=== PATIENT | female | born 1975 | race Caucasian/White ===

== ENCOUNTER → 2017-05-25 16:15 | Outpatient (CLI) | payer BC, SELFPAY ==
--- NOTE | 2017-05-25 16:17 | MRI_ITS ---
STUDY: MRI LUMBAR SPINE WITHOUT CONTRAST REASON FOR EXAM: Female, 41 years old. Radiculopathy right lower leg TECHNIQUE: Standardized fat and water weighted pulse sequences were obtained in the sagittal and axial planes. COMPARISON: None FINDINGS: T12-L1: Normal endplates. Normal disc height, hydration and morphology. Normal bilateral facet joints. Normal central canal and bilateral lateral recesses. Normal bilateral intervertebral neural foramina. Normal lumbar lordosis. There is no substantial scoliosis. Normal conus medullaris that terminates at T12-L1 L1-2: Normal endplates. Normal disc height, hydration and morphology. Normal bilateral facet joints. Normal central canal and bilateral lateral recesses. Normal bilateral intervertebral neural foramina. L2-3: Normal endplates. Normal disc height, hydration and morphology. Normal bilateral facet joints. Normal central canal and bilateral lateral recesses. Normal bilateral intervertebral neural foramina. L3-4: Normal endplates. Normal disc height, hydration and morphology. Normal bilateral facet joints. Normal central canal and bilateral lateral recesses. Normal bilateral intervertebral neural foramina. L4-5: Normal endplates. Normal disc height, hydration and minimal annular bulge. Normal bilateral facet joints. Normal central canal and bilateral lateral recesses. Normal bilateral intervertebral neural foramina. L5-S1: Normal endplates. Normal disc height, hydration and minimal annular bulge. Bilateral facet arthropathy.. Normal central canal and bilateral lateral recesses. Normal bilateral intervertebral neural foramina. Normal visualized sacral ala. Normal visualized paraspinous soft tissue structures. MRI/Spine Lumbar (Routine) IMPRESSION: Minimal bulging of the annuli at L4-5 and L5-S1. No disc protrusion or significant spinal stenosis Electronically Signed: Favio Pruitt MD at 21:31 EST , Service support ,
== END ==
PROVIDERS: Family Provider Family Medicine; PCP Family Medicine; Visit Provider Family Medicine
DX: M54.17 Radiculopathy, lumbosacral region (principal)
CPT/HCPCS: 72148

== ENCOUNTER 2017-06-02 09:22 | Outpatient (RCR) | payer BC, SELFPAY ==
--- NOTE | 2017-06-02 11:36 | HP.PTEVAL_ITS ---
Patient's Visit Information JACINDA SINGH is a 42 year old F referred to Physical Therapy by Bette Reaves DO DR.LMALYS with a diagnosis of LUMBAR RADICULOPATHY. Date of Evaluation: 06/02/17 Physical Therapist: Nikolai Leija, PT, - Visit Plan Frequency: 2x /Week Duration: 4 Weeks Plan: EVITA EX'S,DLS,POSTURAL EX'S,MODALITIES - Subjective Subjective: This 42 y/o female presents to physical therapy with lumbar radiculopathy right side. Patient has had pain intermmtant pain right leg worse past 2 months. Patient fell September 26 made symptoms worse.Pain right L-S region radiates lateral thigh to foot. Patient has parathesia/tingling right foot. Patient has h/o fibromyalgia. Patient has PT in past to include Aquatic PT. Patient described as ache stabbing.Patient has heart montor past 30 days, patient has had stress test and EKG with testing inclusive. Symptoms worse with sitting ,bending,lifting, standing. Symptoms better wth walking. Symptoms affects quality of life and job demands and housework tasks.Pain affects sleeping. Patient ambulates with leg extended antalgic. VOCATION: [employer]. SOCAIL: [place] ,11 childern - Pain Right Lower Extremity Pain Intensity (Out of 10): 7 Pain Intensity Range: 10 Right Back Pain Intensity (Out of 10): 7 Pain Intensity Range: 10 - Objective POSTURE: mild foward posture. GAIT: mild foward posture antalgic gait right leg extended decrease stance time. NEURO: c/o parathesia/tingling right leg , light touch ,reflexes L3-4,L4-5,L5-S1 1/3. MMT: quads/hams 4-/5 R, L 4/5, hip 3 +/5 -R ,hip L 4-/5,ankle 4/5. LUMBAR ROM : flexion mod loss,extension mod loss, side glides mod loss. FLEXABILTY: hams mod tight. SYMMTRIES : align. PALPATION: tender L-S region - Special Tests L/S Slump test left side: Negative L/S Slump test right side: Positive L/S Left Straight Leg Raise: Negative L/S Right Straight Leg Raise: Positive Lumbar Standing: Flexion - Mechanical Response: No effect Lumbar Standing: Flexion - Symptoms During Testing: Increases Lumbar Standing: Flexion - Symptoms After Testing: Worse Lumbar Standing: Extension - Mechanical Response: No effect Lumbar Standing: Extension - Symptoms During Testing: Increases Lumbar Standing: Extension - Symptoms After Testing: No worse Comments:: LUMBAR Lumbar Lying: Flexion - Mechanical Response: No effect Lumbar Lying: Flexion - Symptoms During Testing: Increases Lumbar Lying: Flexion - Symptoms After Testing: No worse Lumbar Lying: Extension - Mechanical Response: Increases motion Lumbar Lying: Extension - Symptoms During Testing: Decreases Lumbar Lying: Extension - Symptoms After Testing: Better - Goals Goal 1:: Patient to be Independant with HEP Goal Time Frame: 4-6 Weeks Goal 2:: Independant with posture/body mechanics for ADL'S Goal Time Frame: 4-6 Weeks Goal 3:: Patient to decrease lumbar pain and radicular symptoms right by 50% or greater to improve function with walking and standing. Goal Time Frame: 4-6 Weeks Goal 4:: Patient to improve lumbar ROM to min loss for function of recovery Goal Time Frame: 4-6 Weeks Goal 5:: Patient to increase strength of right leg to 4/5 to improve function and gait Goal Time Frame: 4-6 Weeks - Rehabilitation Potential Physical Therapy Diagnosis: This patient has lumbar radiculopathy with pain right leg,poor lumbar ROM,decrease strength ,function ,ADL'S worse with flexion ,better with extension and posture correction. and had mechanical response with increase extension Rehabilitation Potential: Good - Anticipated Interventions Patient/Client Instruction: Educate patient on: Condition, Plan of Care For the Purpose of:: To decrease pain, To increase ROM, To improve muscle performance and motor function, To improve ability to perform ADL's, To improve performance and independence with ADL's, To improve ability of physical actions for home/community/work/leisure, To improve gait and locomotor functions, To improve health of tissue, To decrease soft tissue restriction, To increase flexibility/ROM, To prevent re-injury Therapeutic Exercise to Include: Strength training, Body mechanics, Postural training, Flexibilty training, Dynamic Lumbar Stabilization, Evita Exercises For the Purpose of:: To decrease pain, To increase ROM, To improve muscle performance and motor function, To improve ability to perform ADL's, To increase tolerance to activity/condition/position, To improve ability of physical actions for home/community/work/leisure, To improve gait and locomotor functions, To improve health of tissue, To decrease soft tissue restriction, To increase flexibility/ROM, To improve ability to perform tasks related to life management TENS: Yes IF ES: Yes Cryotherapy (ice pack, ice massage): Yes Thermo therapy (hot pack): Yes Ultrasound (thermal/non thermal): Yes For the Purpose of:: To decrease pain, To increase ROM, To improve nutrient delivery to tissue, To increase oxygenation perfusion, To improve muscle performance and motor function, To increase tolerance to activity/condition/ position, To improve ability of physical actions for home/community/work/leisure , To improve health of tissue, To decrease soft tissue restriction, To prevent re-injury, To improve ability to perform tasks related to life management Thank you for the opportunity to evaluate your patient. For Medicare and Medicare HMO plans, please review the plan of care and approve it. It will need to be FAXED BACK to us at [phone] for Medicare purposes. Please let me know if there are questions or concerns regarding this plan of care. Physician Signature: Date:
--- NOTE | 2017-07-15 10:33 | HP.PTDCNRP_ITS ---
HP - Discharge Summary (1) - Patient Information JACINDA SINGH was seen in my office for initial evaluation on 06/02/17. The following Plan of Care was established for this patient: Initial Frequency: 2x /Week Initial Duration: 4 Weeks - Anticipated Interventions Patient/Client Instruction: Educate patient on: Condition, Plan of Care For the Purpose of:: To decrease pain, To increase ROM, To improve muscle performance and motor function, To improve ability to perform ADL's, To improve performance and independence with ADL's, To improve ability of physical actions for home/community/work/leisure, To improve gait and locomotor functions, To improve health of tissue, To decrease soft tissue restriction, To increase flexibility/ROM, To prevent re-injury Therapeutic Exercise to Include: Strength training, Body mechanics, Postural training, Flexibilty training, Dynamic Lumbar Stabilization, Rosalio Exercises For the Purpose of:: To decrease pain, To increase ROM, To improve muscle performance and motor function, To improve ability to perform ADL's, To increase tolerance to activity/condition/position, To improve ability of physical actions for home/community/work/leisure, To improve gait and locomotor functions, To improve health of tissue, To decrease soft tissue restriction, To increase flexibility/ROM, To improve ability to perform tasks related to life management TENS: Yes IF ES: Yes Cryotherapy (ice pack, ice massage): Yes Thermo therapy (hot pack): Yes Ultrasound (thermal/non thermal): Yes For the Purpose of:: To decrease pain, To increase ROM, To improve nutrient delivery to tissue, To increase oxygenation perfusion, To improve muscle performance and motor function, To increase tolerance to activity/condition/ position, To improve ability of physical actions for home/community/work/leisure , To improve health of tissue, To decrease soft tissue restriction, To prevent re-injury, To improve ability to perform tasks related to life management This patient was last seen in our office 06/02/17. Pertinent comments regarding their Physical therapy will appear below: This patient seen for PT for lumbar radiculopathy for PT eval At this point I will be discontinuing this patient from physical therapy. I would be happy to see this patient again in the future if found appropriate by the physician. Thank you! Nikolai Leija, PT,
== END 2017-06-02 19:00 | disposition home or self-care (01) ==
LOC: PT 09:22
PROVIDERS: Family Provider Family Medicine; PCP Family Medicine; Visit Provider Family Medicine
DX: M54.17 Radiculopathy, lumbosacral region (principal)
CPT/HCPCS: 97014; 97162; G0283

== ENCOUNTER → 2017-07-23 14:12 | Outpatient (CLI) | payer BC, SELFPAY ==
[2017-07-23 16:03] LABS: T4 Free Direct 1.19 ng/dL (0.76-1.46); Thyroid Stim Hormone (TSH) 0.28 uIU/mL (0.358-3.74)
[2017-07-24 10:46] LABS: T3 Total - Triiodothyronine 0.89 ng/mL (0.6-1.81)
== END ==
PROVIDERS: Family Provider Family Medicine; PCP Family Medicine; Visit Provider Family Medicine
DX: E03.9 Hypothyroidism, unspecified (principal)
CPT/HCPCS: 36415; 84439; 84443; 84480

== ENCOUNTER → 2017-10-19 11:56 | Outpatient (CLI) | payer BC, SELFPAY ==
[2017-10-19 15:18] LABS: AST(SGOT) 19 U/L (15-37); Alanine Aminotransfer ALT/SGPT 26 U/L (13-56); Albumin, Serum 3.7 g/dL (3.2-5.0); Alkaline Phosphatase 67 U/L (45-117); Anion Gap 8 (5-15); BUN 9 mg/dL (7-18); BUN/Creat Ratio 14.2 RATIO (10-20); Calcium,Total 8.7 mg/dL (8.5-10.1); Chloride 106 mmol/L (98-107); Creatinine, Serum 0.64 mg/dL (0.55-1.02); EST Glomerular Filtration Rate 109 mL/min (>60); Est Glom Filt Rate - Afr Amer 132 mL/min (>60); Globulin 3.6 g/dL (2.2-4.2); Glucose 99 mg/dL (74-106); Lipase 99 U/L (73-393); Potassium 3.7 mmol/L (3.5-5.1); Protein, Total 7.3 g/dL (6.4-8.2); Sodium Level 141 mmol/L (136-145); Thyroid Stim Hormone (TSH) 0.05 uIU/mL (0.358-3.74)
[2017-10-19 15:27] LABS: T3 Total - Triiodothyronine 1.14 ng/mL (0.6-1.81)
== END ==
LOC: BFHLAB 11:56
PROVIDERS: Visit Provider Family Medicine
DX: R19.7 Diarrhea, unspecified (principal); R53.83 Other fatigue; E03.9 Hypothyroidism, unspecified; R10.9 Unspecified abdominal pain
CPT/HCPCS: 36415; 80053; 83690; 84439; 84443; 84480

== ENCOUNTER → 2017-11-03 07:32 | Outpatient (CLI) | payer BC, SELFPAY ==
--- NOTE | 2017-11-03 07:37 | CT_ITS ---
STUDY: CT ABDOMEN AND PELVIS WITH AND WITHOUT CONTRAST REASON FOR EXAM: Female, 42 years old. Diffuse abdominal pain. Fever and diarrhea. RADIATION DOSAGE (If Supplied By Facility): CTDIvol = ( 22.73 ) mGy, DLP = ( 2030.63 ) mGycm TECHNIQUE: Transaxial images were obtained from the dome of the diaphragm to the symphysis pubis without oral contrast. 100CC ml of Isovue 300 contrast was administered. Sagittal and coronal images were reconstructed. Individualized dose optimization techniques were used for this CT. COMPARISON: Comparison is made with prior study dated November 17, 2015. FINDINGS: The visualized lung bases are unremarkable. The visualized portions of the heart are within normal limits. There is decreased attenuation of the liver consistent with steatosis. Stable appearance of the right lobe of the liver in keeping with Evelin's lobe. There are surgical clips in the gallbladder fossa consistent with a prior cholecystectomy. Normal spleen. Normal pancreas. Normal bilateral adrenal glands. Normal right kidney. Normal left kidney. There is a small hiatal hernia. Stable postoperative changes in the proximal stomach. Normal small intestine. Normal colon. The appendix is visualized and appears normal. Normal abdominal aorta. Normal inferior vena cava. Normal retroperitoneum. Normal urinary bladder. Follicles are seen in the left ovary. Prior hysterectomy. Normal abdominal wall. Normal osseous structures. CT/CT Abd/Pelvis W/WO Contrast IMPRESSION: Fatty infiltration of the liver. Electronically Signed: Heladio Goddard MD at 10:00 EDT Tel [phone], Service support ,
== END ==
LOC: CT 07:33
PROVIDERS: Family Provider Family Medicine; PCP Family Medicine; Visit Provider Family Medicine
DX: R10.13 Epigastric pain (principal); R10.32 Left lower quadrant pain; R10.11 Right upper quadrant pain; R14.0 Abdominal distension (gaseous); K52.9 Noninfective gastroenteritis and colitis, unspecified; R10.2 Pelvic and perineal pain
CPT/HCPCS: 74178; Q9967

== ENCOUNTER 2017-11-06 20:07 | Emergency (ER) | payer BC, SELFPAY ==
[2017-11-06 20:09] VITALS: BP 144/87; PULSE 87; RESP 18; TEMP 36.7; O2SAT 97; BMI 34.9
--- NOTE | 2017-11-06 21:06 | EKG12_ITS ---
Test Reason : SOB Blood Pressure : / mmHG Vent. Rate : 072 BPM Atrial Rate : 072 BPM P-R Int : 148 ms QRS Dur : 074 ms QT Int : 404 ms P-R-T Axes : 048 024 009 degrees QTc Int : 442 ms Normal sinus rhythm Normal ECG Confirmed by ARUN WILSON, MONI ([id number]), image editor LEANDER SHARMA ([id number]) on 11/10/2017 1:46:50 PM Referred By: Bette Reaves Confirmed By:MONI DIAS MD
--- NOTE | 2017-11-06 21:06 | CT_ITS ---
STUDY: CT BRAIN WITHOUT CONTRAST REASON FOR EXAM: Female, 42 years old. Weakness RADIATION DOSAGE (If Supplied By Facility): CTDIvol = ( 44.99 ) mGy, DLP = ( 846.73 ) mGycm TECHNIQUE: Transaxial CT imaging of the brain was performed without administration of intravenous contrast material. Individualized dose optimization techniques were used for this CT. COMPARISON: None. FINDINGS: Normal soft tissue structures. Normal calvarium. Normal size ventricles and extra-axial spaces for the patient's age. Normal white matter tracts of the cerebral hemispheres. Prominent perivascular space or old lacunar infarct of the right basal ganglia. Normal thalami. Normal brainstem. Normal cerebellum. There is no intracranial hemorrhage. There are no findings of an acute ischemic infarction. Normal visualized paranasal sinuses. CT/Brain/Head without Contrast IMPRESSION: Normal unenhanced CT scan of the brain. Electronically Signed: Alfonzo Esqueda DO at 21:52 EDT Tel [phone], Service support ,
--- NOTE | 2017-11-06 21:09 | RAD_ITS ---
STUDY: X-RAY CHEST REASON FOR EXAM: Female, 42 years old. Right arm and leg cramps TECHNIQUE: Single AP portable view of the chest. COMPARISON: 05/10/2017 FINDINGS: The lungs are clear and expanded. There is no demonstrated pleural abnormality. Normal size heart. Normal mediastinum and oleksandr. Normal visualized pulmonary arteries. Normal visualized aortic arch and descending thoracic aorta. Normal visualized thoracic spine. Normal visualized ribs, clavicles, and shoulders. There is no demonstrated abnormality of the visualized soft tissue structures of the upper abdomen. RAD/Chest 1 View (Portable) IMPRESSION: Normal x-ray examination of the chest. Electronically Signed: Connor Thayer DO at 21:27 EDT Tel , Service support ,
[2017-11-06 21:37] LABS: Absolute Lymphocyte Count 3.24 X10^3/ul (0.83-4.51); Absolute Neutrophil Count 4.4 X10^3/uL (2.0-7.7); Basophil# 0.05 X10^3/uL; Basophil% 0.6 % (0-1); Eosinophil# 0.07 X10^3/uL; Eosinophils% 0.8 % (0-5); Hematocrit 39.6 % (37-47); Hemoglobin 13.1 g/dl (12.0-15.0); Lymphocyte # 3.24 X10^3/ul (4.0); Lymphocyte % 37.5 % (19-41); Mean Corp Hgb Conc 33.1 g/gl (32-36); Mean Corpuscular Hgb 28.7 pg (27.0-32.0); Mean Corpuscular Volume 86.8 fL (81-99); Mean Platelet Vol. 9.8 fl (6.2-12.0); Monocyte# 0.91 X10^3/uL; Monocyte% 10.5 % (0-10); Neutrophil # 4.36 X10^3/uL (2.7-7.7); Neutrophil % 50.4 % (47-70); Platelet Count 272 K/mm3 (150-450); RBC Distribution Width SD 38.2 fl (35.1-43.9); Red Blood Count 4.56 M/mm3 (4.2-5.4); White Blood Count 8.7 K/mm3 (4.4-11.0)
[2017-11-06 21:37] LABS: Bacteria 0 SEEN /hpf (None Seen); Mucous, Urine 0 SEEN /hpf (<or=2+); Red Blood Cells-Urine 0 SEEN /hpf (0-5); White Blood Cells 0 SEEN /hpf (0-5)
[2017-11-06 21:38] LABS: POSITIVE COUNT NO; POSITIVE DIFFERENTIAL NO; POSITIVE MORPHOLOGY NO
[2017-11-06] MEDS: 0.9% Normal Saline 1,000 ML 1000 ML IV (21:46)
[2017-11-06 21:54] LABS: Amphetamine Urine VISTA NEGATIVE (<1000 ng/mL); Barbiturate Urine VISTA NEGATIVE (< 200 ng/mL); Benzodiazepine Urine VISTA NEGATIVE (< 200 ng/mL); Cocaine Urine VISTA NEGATIVE (< 300 ng/mL); Ecstacy Urine VISTA NEGATIVE (< 500 ng/mL); Methadone Urine VISTA NEGATIVE (< 300 ng/mL); PCP Urine VISTA NEGATIVE (< 25 ng/mL); THC Urine VISTA NEGATIVE (< 50 ng/mL); Vista UDS pH Range 6
[2017-11-06 21:58] LABS: Color, Urine Yellow (Yellow); Glucose, Dipstick Normal (Normal); Ketone-Dipstick Negative (Negative); Leukocyte Esterase-Dipstick Negative /ul (Negative); Nitrite-Dipstick Negative (Negative); Occult Blood-Urine Negative /ul (Negative); Protein-Dipstick Negative (Negative); Urine Bilirubin Dipstick Negative (Negative); Urine Clarity Clear (Clear); Urine Urobilinogen Normal (Normal)
[2017-11-06 22:00] LABS: Squamous Epithelial Cells - UA 0-5 SEEN /hpf (5-10)
[2017-11-06 22:01] LABS: Anion Gap 8 (5-15); BUN 7 mg/dL (7-18); BUN/Creat Ratio 10.6 RATIO (10-20); Calcium,Total 8.4 mg/dL (8.5-10.1); Chloride 105 mmol/L (98-107); Creatinine, Serum 0.66 mg/dL (0.55-1.02); EST Glomerular Filtration Rate 104 mL/min (>60); Est Glom Filt Rate - Afr Amer 126 mL/min (>60); Estimated Creatinine Clearance 95.89 ml/min; Glucose 83 mg/dL (74-106); Magnesium 2.1 mg/dL (1.6-2.6); Potassium 4.2 mmol/L (3.5-5.1); Sodium Level 140 mmol/L (136-145)
[2017-11-06 22:15] VITALS: RESP 20
[2017-11-06 22:36] LABS: Bedside Glucose 89 mg/dL (70-110)
--- NOTE | 2017-11-06 22:43 | ED.DCSUM_ITS ---
- ER Visit Summary Date of Service: 11/06/17 Chief Complaint: right hand and bilateral leg weakness History of Present Illness: The patient is a 42 F with history of fibromyalgia who presents for 3 hours of right hand does not want to work right. Patient states that she has episodes where 1 of her extremities will not work correctly. Tonight her hand will not open. She is also complaining of the lower extremities being weak, with the right more weak than the left. This started weeks ago. She is also complaining of shaking. She has been having worsening of her symptoms and more recurrent symptoms, causing her to cut back on her work hours. Patient denies any fever, chest pain, shortness of breath, abdominal pain, nausea or vomiting, neck pain or back pain, headache or other symptoms. She states her weakness will resolve spontaneously and she does not know what is causing it. She denies any recent medication changes. Physical Examination: Vital signs: afebrile, hemodynamically stable, no hypoxia on room air General: well nourished, well developed, in no distress Skin: warm, dry, no rash, no pallor HEENT: normocephalic and atraumatic; PERRL, EOMI, moist mucous membranes, resting tremor of the head Cardiovascular: regular rate and rhythm without murmurs, no peripheral edema, 2 + pulses all distal extremities Respiratory: No increased work of breathing, lungs are clear to auscultation bilaterally, no rales, rhonchi or wheezing Abdominal: Abdomen is soft, nontender with normoactive bowel sounds, no guarding or rebound, no masses MSK/Neuro: Moves all extremities, no deformities, right arm weakness, 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 Sensation is intact. Awake and alert, oriented ?4. No facial droop Test Results: Abnormal Lab Results 11/06/17 11/06/17 11/06/17 21:16 21:20 21:20 WBC 8.7 RBC 4.56 Hgb 13.1 Hct 39.6 MCV 86.8 MCH 28.7 MCHC 33.1 RDW 12.0 RDW Differential 38.2 Plt Count 272 MPV 9.8 Immature Gran % (Auto) 0.200 Neut % (Auto) 50.4 Lymph % (Auto) 37.5 Branch % (Auto) 10.5 H Eos % (Auto) 0.8 Baso % (Auto) 0.6 Absolute Neuts (auto) 4.4 Absolute Lymphs (auto) 3.24 Total Counted Not Reportable Sodium 140 Potassium 4.2 Chloride 105 Carbon Dioxide 27.0 Anion Gap 8 BUN 7 Creatinine 0.66 Estim Creat Clear Calc 95.89 Est GFR (MDRD) Af Amer 126 Est GFR (MDRD) Non-Af 104 BUN/Creatinine Ratio 10.6 Glucose 83 Calcium 8.4 L Magnesium 2.1 Troponin I < 0.015 Urine Color Urine Clarity Urine pH Ur Specific [place] Urine Protein Urine Glucose (UA) Urine Ketones Urine Occult Blood Urine Nitrite Urine Bilirubin Urine Urobilinogen Ur Leukocyte Esterase Urine RBC Urine WBC Ur Squamous Epith Cells Urine Bacteria Urine Mucus Urine Opiates Screen Urine Methadone Screen Ur Barbiturates Screen Ur Phencyclidine Scrn Ur Amphetamines Screen U Methamphetamin-MDMA U Benzodiazepines Scrn Urine Cocaine Screen U Cannabinoids Screen Ur Drug Screen Comment Ethyl Alcohol POC Glucose 89 11/06/17 11/06/17 11/06/17 21:20 21:30 21:30 WBC RBC Hgb Hct MCV MCH MCHC RDW RDW Differential Plt Count MPV Immature Gran % (Auto) Neut % (Auto) Lymph % (Auto) Branch % (Auto) Eos % (Auto) Baso % (Auto) Absolute Neuts (auto) Absolute Lymphs (auto) Total Counted Sodium Potassium Chloride Carbon Dioxide Anion Gap BUN Creatinine Estim Creat Clear Calc Est GFR (MDRD) Af Amer Est GFR (MDRD) Non-Af BUN/Creatinine Ratio Glucose Calcium Magnesium Troponin I Urine Color Yellow Urine Clarity Clear Urine pH 8.0 Ur Specific [place] 1.010 Urine Protein Negative Urine Glucose (UA) Normal Urine Ketones Negative Urine Occult Blood Negative Urine Nitrite Negative Urine Bilirubin Negative Urine Urobilinogen Normal Ur Leukocyte Esterase Negative Urine RBC 0 SEEN Urine WBC 0 SEEN Ur Squamous Epith Cells 0-5 SEEN Urine Bacteria 0 SEEN Urine Mucus 0 SEEN Urine Opiates Screen NEGATIVE Urine Methadone Screen NEGATIVE Ur Barbiturates Screen NEGATIVE Ur Phencyclidine Scrn NEGATIVE Ur Amphetamines Screen NEGATIVE U Methamphetamin-MDMA NEGATIVE U Benzodiazepines Scrn NEGATIVE Urine Cocaine Screen NEGATIVE U Cannabinoids Screen NEGATIVE Ur Drug Screen Comment Ethyl Alcohol 4.0 POC Glucose Clinical Impression(s) from Imaging Studies Brain CT 11/06/17 21:06 IMPRESSION: Normal unenhanced CT scan of the brain. Electronically Signed: Alfonzo Esqueda DO at 21:52 EDT Tel [phone], Service support , Chest X-Ray 11/06/17 21:09 IMPRESSION: Normal x-ray examination of the chest. Electronically Signed: Connor Thayer DO at 21:27 EDT Tel , Service support , Emergency Department Course and Treatment: Patient's initial presentation with the complaint of the acute weakness of the right upper extremity was initially concerning for possible central origin. However she has been having waxing and waning symptoms of all extremities, and they do not fit a specific central pattern. Patient also had changes in her exam depending on whether she was actively engaged in the exam or was distracted. Workup performed showing no electrolyte derangements. No leukocytosis. Troponin negative. Tox and alcohol negative. CT head showed no acute process. On reevaluation, patient's symptoms had all spontaneously resolved and she had full strength in all extremities and the tremor had resolved. Patient stated this is how it goes and she does not have a reason. She has not seen a neurologist yet and thus was given follow-up information for neurologist. In my professional opinion, patient does not have an acute neurologic pathology that would require admission for further workup, such as a stroke. She was discharged home in improved condition. Treatment Plan: [] Disposition: [] Impression: Episodic weakness of the extremities This note was generated with Trust[employer] dictation software. It may contain incorrect words, spelling, and punctuation that were not noted in review of the chart prior to signing ED Disposition - Plan for ED Patient: Disposition: Home or Assisted Living Chief Complaint: Upper Extremity Injury Instructions: ED Weakness [facility] Referrals: Bette Reaves DO [Primary Care Provider] - 3-5 Days if not improving Maged Pak MD [STAFF PHYSICIAN] - 1 Week Additional Instructions: Please follow-up with your doctor for your recurrent weakness and tremors. Please follow-up with neurology for an evaluation since you are having these recurrent symptoms. Continue your medications as prescribed by your doctor. If you have any worsening of your condition or any new concerning symptoms, please return immediately to the emergency department for another evaluation.
[2017-11-06 23:06] VITALS: BP 138/78; PULSE 78; RESP 16; O2SAT 98
== END 2017-11-06 23:07 | disposition home or self-care (01) ==
PROVIDERS: Emergency Provider Emergency Medicine; Family Provider Family Medicine; PCP Family Medicine
DX: R29.898 Other symptoms and signs involving the musculoskeletal system (principal); M79.7 Fibromyalgia; Z79.899 Other long term (current) drug therapy
CPT/HCPCS: 70450; 71045; 80048; 80307; 80320; 81001; 82962; 83735; 84484; 85025; 93005; 99284; J7030; A4216; G0480

== ENCOUNTER → 2018-01-08 09:43 | Outpatient (CLI) | payer BC, SELFPAY ==
[2018-01-08 11:25] LABS: Hemoglobin A1c 5.6 % (4.2-6.3)
[2018-01-08 11:37] LABS: Vitamin B12 352 pg/mL (211-911); Vitamin D,25 Hydroxy 13.2 ng/mL (29.95-100.01)
[2018-01-08 11:42] LABS: CPK Total, Creatine Kinase 109 U/L (26-192); Rheumatoid Factor < 10.0 IU/mL (<15); Thyroid Stim Hormone (TSH) 0.12 uIU/mL (0.358-3.74)
[2018-01-11 20:13] LABS: SJOGREN'S Anti-SS-A test < 0.2 AI (0.0-0.9); SJOGREN'S Anti-SS-B test < 0.2 AI (0.0-0.9)
[2018-01-12 13:27] LABS: ANTINUCLEAR ANTIBODIES DIRECT Negative (Negative)
[2018-01-12 16:09] LABS: Albumin 3.6 g/dL (2.9-4.4); Albumin, Ur 32.8 % (.); Alpha-1-Globulin, Ur 18.4 % (.); Alpha-1-Globulins 0.2 g/dL (0.0-0.4); Alpha-2-Globulins 0.7 g/dL (0.4-1.0); Alpha-2-Globulins, Ur 25.3 % (.); Beta Globulin, Ur 18.6 % (.); Cytoplasmic Ab (C-ANCA) <1:20 titer (Neg:<1:20); Gamma Globulin 0.9 g/dL (0.4-1.8); Gamma Globulin, Ur 4.9 % (.); Immunoglobulin A 104 mg/dL (87-352); Immunoglobulin G 950 mg/dL (700-1600); Immunoglobulin M 157 mg/dL (26-217); M-Spike, Ur % Not Observed % (Not Observed); PROEL- TOTAL PROTEIN 6.4 g/dL (6.0-8.5); Total Protein, Ur 20.9 mg/dL (Not Estab.)
[2018-01-13 11:06] LABS: ARSENIC (TOTAL), URINE 11 ug/L (0-50); Creatinine, Urine 0.65 g/L (0.30-3.00)
[2018-01-13 11:07] LABS: Perinuclear Ab (P-ANCA) <1:20 titer (Neg:<1:20)
== END ==
PROVIDERS: Family Provider Family Medicine; PCP Family Medicine; Visit Provider Psychiatry & Neurology Neurology
DX: G62.9 Polyneuropathy, unspecified (principal); R73.03 Prediabetes
CPT/HCPCS: 36415; 82175; 82306; 82550; 82570; 82607; 82784; 83036; 83655; 83825; 84165; 84166; 84443; 86038; 86235; 86256; 86334; 86335; 86431

== ENCOUNTER 2018-03-04 10:00 | Outpatient (RCR) | payer BC, SELFPAY ==
--- NOTE | 2018-01-13 11:01 | HP.PTEVAL_ITS ---
Patient's Visit Information JACINDA SINGH is a 42 year old F referred to Physical Therapy by Aida Hannah with a diagnosis of Neck and LBP. Date of Evaluation: 01/13/18 Physical Therapist: Leonardo Quinonez, PT, - Visit Plan Frequency: 2-3x /Week Duration: 4 Weeks Plan: Assess C/S next Rx. L/S; REIL, core stab ex's, LE stretching and strengthening, nustep, and HEP - Subjective Subjective: Pt reports she has had B arms and leg pain chronically for several years. Pt notes she has been diagnosed as having fibromyalgia and RA. Pt notes now her Dr's believe all her sx's are coming from her back and neck. Pt reports her hands and feet will tingle, and even become numb at times. Pt reports she may have a little neck or back pain, but she rarely ever feels any pain in those regions. Pt reports prolonged standing at work increases her LE tingling. 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 Pt reports she has really lost her hand strength as a result. Pt has had xrays with reveal deg changes in her spine. Pt notes sleep diff secondary to pain. - Pain neck Pain Intensity (Out of 10): 1 Pain Intensity Range: 5 LBP Pain Intensity (Out of 10): 1 Pain Intensity Range: 9 - Objective Neuro: B LE sensation is WNL to light touch. B Patellar reflex 2/3. MMT: B LE grossly 4/5 throughout. L/S ROM: Pt is moderately limited with extension of the L/S and this provokes pain. All other motions are WNL. Repeated movements: RFIS 10x2 provokes LBP and peripheralises her B LE sx's. ETHAN 10x2 CENTRALIZED sx's and decreased pain. REIL abolished all sx's - Goals Goal 1:: Decrease LBP x 50% to aid with sleep Goal Time Frame: 2-4 Weeks Goal 2:: Decrease the F and I of B LE radiculopathy x 50% to aid with ambulation Goal Time Frame: 2-4 Weeks Goal 3:: Increase B LE strength x 1 grade to aid with IADL's Goal Time Frame: 2-4 Weeks Goal 4:: I with HEP Goal Time Frame: 4-6 Weeks - Rehabilitation Potential Physical Therapy Diagnosis: Pt has LBP, LE radiculopathy, and LE weakness secondary to L/S disc derangement Rehabilitation Potential: Good - Anticipated Interventions Patient/Client Instruction: Educate patient on: Condition, Plan of Care For the Purpose of:: To improve self management Therapeutic Exercise to Include: Strength training, Endurance training, Balance training, Body mechanics, Postural training, Dynamic Lumbar Stabilization For the Purpose of:: To decrease pain, To increase ROM, To improve muscle performance and motor function IF ES: Yes Cryotherapy (ice pack, ice massage): Yes Thermo therapy (hot pack): Yes For the Purpose of:: To decrease pain Thank you for the opportunity to evaluate your patient. For Medicare and Medicare HMO plans, please review the plan of care and approve it. It will need to be FAXED BACK to us at [phone] for Medicare purposes. Please let me know if there are questions or concerns regarding this plan of care. Physician Signature: Date:
--- NOTE | 2018-05-19 08:10 | HP.PT.NRP ---
HP - Discharge Summary (1) - Patient Information JACINDA SINGH was seen in my office for initial evaluation on 01/13/18. The following Plan of Care was established for this patient: Initial Frequency: 2-3x /Week Initial Duration: 4 Weeks - Anticipated Interventions Patient/Client Instruction: Educate patient on: Condition, Plan of Care For the Purpose of:: To improve self management Therapeutic Exercise to Include: Strength training, Endurance training, Balance training, Body mechanics, Postural training, Dynamic Lumbar Stabilization For the Purpose of:: To decrease pain, To increase ROM, To improve muscle performance and motor function IF ES: Yes Cryotherapy (ice pack, ice massage): Yes Thermo therapy (hot pack): Yes For the Purpose of:: To decrease pain This patient was last seen in our office . Pertinent comments regarding their Physical therapy will appear below: Pt was treated for neck and LBP for 8 PT visits through the date of 03/04/18. Pt has not returned since that date and is therefore discontinued at this time. At this point I will be discontinuing this patient from physical therapy. I would be happy to see this patient again in the future if found appropriate by the physician. Thank you! Leonardo Quinonez, PT, ATC
== END 2018-03-04 19:00 | disposition home or self-care (01) ==
LOC: PT 10:00
PROVIDERS: Family Provider Family Medicine; PCP Family Medicine; Visit Provider Psychiatry & Neurology Neurology
DX: M54.2 Cervicalgia (principal); M54.9 Dorsalgia, unspecified
CPT/HCPCS: 97012; 97110; 97163; 97530

== ENCOUNTER 2018-04-21 16:13 | Emergency (ER) | payer BC, SELFPAY ==
[2018-04-21 16:15] VITALS: BP 149/78; PULSE 84; RESP 16; TEMP 36.2; O2SAT 97; BMI 35.3
--- NOTE | 2018-04-21 17:18 | CT_ITS ---
STUDY: CT ABDOMEN AND PELVIS WITHOUT CONTRAST REASON FOR EXAM: Female, 42 years old. Right lower quadrant pain RADIATION DOSAGE (If Supplied By Facility): CTDIvol = ( 14.19 ) mGy, DLP = ( 926.32 ) mGycm TECHNIQUE: Transaxial images were obtained from the dome of the diaphragm to the symphysis pubis without oral contrast, and without intravenous contrast. Sagittal and coronal images were reconstructed. Individualized dose optimization techniques were used for this CT. COMPARISON: November 03, 2017 FINDINGS: The visualized lung bases are unremarkable. The visualized portions of the heart are within normal limits. Normal liver. Status post cholecystectomy. Mild dilatation of the biliary system. Normal spleen. Normal pancreas. Normal bilateral adrenal glands. Normal right kidney. Normal left kidney. Prior gastric surgery. Normal small intestine. Normal colon. The appendix is normal size. Normal abdominal aorta. Normal inferior vena cava. Normal retroperitoneum. Normal urinary bladder. Possible right adnexal 2.2 cm cystic nodule. Normal abdominal wall. Normal osseous structures. CT/Abdomen/Pelvis W IV Cont ONLY IMPRESSION: Right adnexal cystic nodule. Electronically Signed: Alfonzo Esqueda DO at 19:16 EST Tel [phone], Service support ,
--- NOTE | 2018-04-21 17:19 | ED.VISSUMM ---
- ER Visit Summary Date of Service: 04/21/18 Chief Complaint: Right lower quadrant abdominal pain History of Present Illness: The patient is a 42 F allergy and hypothyroidism. Status post cholecystectomy and prior hysterectomy along with a Tylor-like lesion and hernia repair. 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 No dysuria. No vaginal bleeding. No fever. No trauma. Physical Examination: Well-appearing middle-age female. Vital signs are stable afebrile. She does not look septic or toxic no acute distress. H EENT exam unremarkable. Neck nontender. Lungs clear to auscultation bilaterally. Heart regular rhythm no murmur. Abdomen soft, nondistended normal bowel sounds no peritoneal signs. The left upper, left lower and right upper quadrant completely nontender. No hernias or masses. No signs of obstruction. Her only tenderness is in the right lower quadrant. No peritoneal signs. Patient moving all 4 extremities. Neurovascular intact. Back nontender. Neurologic exam normal. Test Results: CBC normal white count of 4. Hemoglobin 13. Chemistries normal. Normal gap and creatinine is 0.6. UA normal. No signs of infection or blood. Patient CT abdomen pelvis with IV contrast only shows questionable right adnexal cystic nodule possibly an ovarian cyst. Appendix seen is normal. Otherwise no acute abnormality. Read by the radiologist. Reviewed by me. Emergency Department Course and Treatment: Patient be treated with IV fluids, Zofran and Toradol. CT and labs will be obtained. Treatment Plan: Patient was treated with IV normal saline times a liter. IV Toradol and Zofran for nausea. On repeat exam at 2235 she is doing well. Abdomen is benign. She and I went over all her test results. She is comfortable being discharged home. She will be sent with Zofran home pack. Disposition: Discharge Impression: Acute right lower quadrant abdominal pain with nausea, vomiting, diarrhea This note was generated with [employer] dictation software. It may contain incorrect words, spelling, and punctuation that were not noted in review of the chart prior to signing ED Disposition - Plan for ED Patient: Chief Complaint: Abd Pain Referrals: Bette Reaves DO [Primary Care Provider] -
[2018-04-21 17:52] LABS: Bacteria 0 SEEN /hpf (None Seen); Mucous, Urine 0 SEEN /hpf (<or=2+); Red Blood Cells-Urine 0 SEEN /hpf (0-5); White Blood Cells 0 SEEN /hpf (0-5)
[2018-04-21 17:55] LABS: Color, Urine Yellow (Yellow); Glucose, Dipstick Normal (Normal); Ketone-Dipstick 5 mg/dl (Negative); Leukocyte Esterase-Dipstick Negative /ul (Negative); Nitrite-Dipstick Negative (Negative); Occult Blood-Urine Negative /ul (Negative); Protein-Dipstick Negative (Negative); Specific Gravity, Urine 1.025 (1.002-1.030); Urine Bilirubin Dipstick Negative (Negative); Urine Clarity Cloudy (Clear); Urine Urobilinogen 1 mg/dl (Normal)
[2018-04-21] MEDS: 0.9% Normal Saline 1,000 ML 1000 ML IV (17:58)
[2018-04-21] MEDS: Ondansetron 4 MG/2 ML Vial IV ×2 (17:58→20:59)
[2018-04-21] MEDS: Ketorolac 30 MG/ML Syringe IV (17:58)
[2018-04-21 18:02] VITALS: BP 141/96; PULSE 67; RESP 15; O2SAT 97
[2018-04-21 18:10] LABS: Amorphous Sediment 4+
[2018-04-21 18:12] LABS: Squamous Epithelial Cells - UA 0-5 SEEN /hpf (5-10)
[2018-04-21 18:13] LABS: Calcium Oxalate Crystals Ur RARE /hpf (<or=2+)
[2018-04-21 18:17] LABS: Anion Gap 6 (5-15); BUN 6 mg/dL (7-18); BUN/Creat Ratio 9.6 RATIO (10-20); Calcium,Total 8.6 mg/dL (8.5-10.1); Chloride 107 mmol/L (98-107); Creatinine, Serum 0.62 mg/dL (0.55-1.02); EST Glomerular Filtration Rate 111 mL/min (>60); Est Glom Filt Rate - Afr Amer 134 mL/min (>60); Estimated Creatinine Clearance 102.07 ml/min; Glucose 96 mg/dL (74-106); Potassium 3.9 mmol/L (3.5-5.1); Sodium Level 139 mmol/L (136-145)
[2018-04-21 18:33] LABS: Absolute Lymphocyte Count 1.57 X10^3/ul (0.83-4.51); Absolute Neutrophil Count 2.4 X10^3/uL (2.0-7.7); Basophil# 0.01 X10^3/uL; Basophil% 0.2 % (0-1); Eosinophil# 0.04 X10^3/uL; Eosinophils% 0.8 % (0-5); Hematocrit 40.9 % (37-47); Hemoglobin 13.6 g/dl (12.0-15.0); Lymphocyte # 1.57 X10^3/ul (4.0); Lymphocyte % 32.4 % (19-41); Mean Corp Hgb Conc 33.3 g/gl (32-36); Mean Corpuscular Hgb 29.2 pg (27.0-32.0); Mean Corpuscular Volume 87.8 fL (81-99); Mean Platelet Vol. 10.1 fl (6.2-12.0); Monocyte# 0.78 X10^3/uL; Monocyte% 16.1 % (0-10); Neutrophil # 2.44 X10^3/uL (2.7-7.7); Neutrophil % 50.3 % (47-70); Platelet Count 273 K/mm3 (150-450); RBC Distribution Width CV 11.7 % (11.6-14.6); RBC Distribution Width SD 37.5 fl (35.1-43.9); Red Blood Count 4.66 M/mm3 (4.2-5.4); White Blood Count 4.9 K/mm3 (4.4-11.0)
[2018-04-21 18:37] LABS: POSITIVE COUNT NO; POSITIVE DIFFERENTIAL NO; POSITIVE MORPHOLOGY NO
[2018-04-21 20:55] VITALS: PULSE 69; RESP 18; O2SAT 96
--- NOTE | 2018-04-21 22:44 | ED.DEP ---
ED Disposition - Plan for ED Patient: Disposition: Home or Assisted Living Chief Complaint: Abd Pain Instructions: ED Abdominal Pain Unkn Cause Referrals: Bette Reaves DO [Primary Care Provider] - 3-5 Days if not improving Additional Instructions: Zofran as needed for nausea. Tylenol and Motrin for pain. Plenty of fluids and rest.
[2018-04-21] MEDS: Ondansetron ODT 4 MG Tablet PO (22:50)
[2018-04-21 22:51] VITALS: BP 145/79; PULSE 62; RESP 16; O2SAT 97
== END 2018-04-21 22:54 | disposition home or self-care (01) ==
PROVIDERS: Emergency Provider Emergency Medicine; Family Provider Family Medicine; PCP Family Medicine
DX: R10.31 Right lower quadrant pain (principal); R11.2 Nausea with vomiting, unspecified; R19.7 Diarrhea, unspecified; N83.8 Other noninflammatory disorders of ovary, fallopian tube and broad ligament; E03.9 Hypothyroidism, unspecified; M79.7 Fibromyalgia; Z90.49 Acquired absence of other specified parts of digestive tract; Z79.899 Other long term (current) drug therapy
CPT/HCPCS: 74177; 80048; 81001; 85025; 96361; 96374; 96375; 96376; 99284; J7030; Q9967; A4216; J2405

== ENCOUNTER → 2018-05-04 07:56 | Outpatient (CLI) | payer MEDICAID, SELFPAY ==
[2018-04-21 16:15] VITALS: BMI 35.3
--- NOTE | 2018-05-04 09:59 | NEURO ---
NCS and/or EMG Patient Report Ordering Doctor: Aida Hannah DATE OF SERVICE: 05/04/18 This is a bilateral lower extremity nerve conduction study and a left lower extremity EMG performed on this 42-year-old female with intermittent numbness and weakness in her legs bilaterally. She says in the past she is wheelchair-bound however she has recovered. She says her symptoms are worsened by stress, she is healthy otherwise with out a history of diabetes, significant alcohol use, although she does have a history of fibromyalgia and hypothyroid. Bilateral lower extremity sensory and motor nerve conduction studies demonstrate normal sural sensory responses bilaterally, normal peroneal motor and tibial motor distal latencies, amplitudes and conduction velocities bilaterally, normal F waves bilaterally and normal H reflexes bilaterally. Left lower extremity needle electromyography is performed. Muscles evaluated included the extensor digitorum brevis, abductor houses, medial gastrocnemius, anterior tibialis, vastus medialis and vastus lateralis. All muscles demonstrated normal insertional activity with absence of pathologic spontaneous activity. Motor unit potential recruitment pattern and amplitude was normal in all muscles tested. Impression: Normal electrophysiologic study of the lower extremities.
--- NOTE | 2018-05-04 10:04 | NEURO_ITS ---
NCS and/or EMG Patient Report Ordering Doctor: Aida Hannah DATE OF SERVICE: 05/04/18 This is a bilateral lower extremity nerve conduction study and a left lower extremity EMG performed on this 42-year-old female with intermittent numbness and weakness in her legs bilaterally. She says in the past she is wheelchair- bound however she has recovered. She says her symptoms are worsened by stress, she is healthy otherwise with out a history of diabetes, significant alcohol use, although she does have a history of fibromyalgia and hypothyroid. Bilateral lower extremity sensory and motor nerve conduction studies demonstrate normal sural sensory responses bilaterally, normal peroneal motor and tibial mot or distal latencies, amplitudes and conduction velocities bilaterally, normal F waves bilaterally and normal H reflexes bilaterally. Left lower extremity needle electromyography is performed. Muscles evaluated included the extensor digitorum brevis, abductor houses, medial gastrocnemius, anterior tibialis, vastus medialis and vastus lateralis. All muscles demonstrated normal insertional activity with absence of pathologic spontaneous activity. Motor unit potential recruitment pattern and amplitude was normal in all muscles tested. Impression: Normal electrophysiologic study of the lower extremities.
== END ==
PROVIDERS: Family Provider Family Medicine; PCP Family Medicine; Referring Provider Psychiatry & Neurology Neurology; Visit Provider Psychiatry & Neurology Neurology
DX: R20.2 Paresthesia of skin (principal); R20.0 Anesthesia of skin
CPT/HCPCS: 95886; 95910

== ENCOUNTER → 2018-05-26 08:32 | Outpatient (CLI) | payer MEDICAID, SELFPAY ==
--- NOTE | 2018-05-26 09:47 | NEURO ---
NCS and/or EMG Patient Report Ordering Doctor: Aida Hannah DATE OF SERVICE: 05/26/18 Diane Tracy is a 42-year-old female presents for electrodiagnostic testing of the upper limbs. She reports burning pain and numbness in both hands. Electrodiagnostic findings: Median motor nerve demonstrates normal distal latency, amplitude and conduction velocity bilaterally. Normal ulnar motor response noted bilaterally normal median and ulnar F waves. Sensory responses are within normal limits. On needle EMG, all muscles tested in upper limbs show no evidence of denervation with normal motor unit action potentials. Electrodiagnostic assessment: This is a normal electrodiagnostic study in the upper limbs. There is no electrodiagnostic evidence for peripheral neuropathy or cervical radiculopathy. If there are any further questions, please do not hesitate to contact me.
== END ==
PROVIDERS: Family Provider Family Medicine; PCP Family Medicine; Referring Provider Psychiatry & Neurology Neurology; Visit Provider Psychiatry & Neurology Neurology
DX: R20.2 Paresthesia of skin (principal); R20.0 Anesthesia of skin
CPT/HCPCS: 95886; 95913

== ENCOUNTER → 2018-06-14 08:40 | Outpatient (CLI) | payer MEDICAID, SELFPAY ==
[2018-06-14 13:17] LABS: BUN 8 mg/dL (7-18); Creatinine, Serum 0.66 mg/dL (0.55-1.02); Glucose 77 mg/dL (74-106)
[2018-06-14 13:18] LABS: ALB/GLOB Ratio 1.1 RATIO (0.9-2.4); AST(SGOT) 14 U/L (15-37); Alanine Aminotransfer ALT/SGPT 30 U/L (13-56); Albumin, Serum 3.8 g/dL (3.2-5.0); Alkaline Phosphatase 75 U/L (45-117); Anion Gap 9 (5-15); BUN/Creat Ratio 12.1 RATIO (10-20); Calcium,Total 8.7 mg/dL (8.5-10.1); Chloride 105 mmol/L (98-107); EST Glomerular Filtration Rate 104 mL/min (>60); Est Glom Filt Rate - Afr Amer 126 mL/min (>60); Free T3 2.1 pg/mL (2.18-3.98); Globulin 3.6 g/dL (2.2-4.2); Potassium 3.9 mmol/L (3.5-5.1); Protein, Total 7.4 g/dL (6.4-8.2); Sodium Level 141 mmol/L (136-145); T4 Free Direct 1.14 ng/dL (0.76-1.46); Thyroid Stim Hormone (TSH) 0.64 uIU/mL (0.358-3.74)
== END ==
PROVIDERS: Family Provider Family Medicine; PCP Family Medicine; Visit Provider Family Medicine
DX: E03.9 Hypothyroidism, unspecified (principal); K52.9 Noninfective gastroenteritis and colitis, unspecified
CPT/HCPCS: 36415; 80053; 84439; 84443; 84481

== ENCOUNTER → 2018-09-16 | Outpatient (CLI) | payer MEDICAID, SELFPAY ==
--- NOTE | 2018-09-16 11:30 | RAD_ITS ---
STUDY: X-RAY CHEST REASON FOR EXAM: Female, 43 years old. Cough. TECHNIQUE: Frontal and lateral views of the chest. COMPARISON: November 06, 2017 FINDINGS: There is stable mild hyperexpansion. There is no demonstrated pleural abnormality. Normal size heart. Normal mediastinum and oleksandr. Normal visualized pulmonary arteries. Normal visualized aortic arch and descending thoracic aorta. Normal visualized thoracic spine. Normal visualized ribs, clavicles, and shoulders. There is no demonstrated abnormality of the visualized soft tissue structures of the upper abdomen. RAD/Chest PA and Lateral IMPRESSION: Stable mild hyperexpansion with no acute or active cardiopulmonary disease. Electronically Signed: Marc Bonilla MD at 10:35 EDT , Service support ,
[2018-09-16 12:32] LABS: D-Dimer Quantitative (DVT/PE) < 0.27 FEU/ug/m (0.27-0.49)
[2018-09-16 12:47] LABS: Erythrocyte Sedimentation Rate 13 mm/hr (0-20)
[2018-09-16 12:50] LABS: Absolute Lymphocyte Count 2.49 X10^3/ul (0.83-4.51); Absolute Neutrophil Count 4.1 X10^3/uL (2.0-7.7); Basophil# 0.03 X10^3/uL; Basophil% 0.4 % (0-1); Eosinophil# 0.05 X10^3/uL; Eosinophils% 0.7 % (0-5); Hemoglobin 14.4 g/dl (12.0-15.0); Lymphocyte # 2.49 X10^3/ul (4.0); Lymphocyte % 33.5 % (19-41); Mean Corp Hgb Conc 32.7 g/gl (32-36); Mean Corpuscular Hgb 28.9 pg (27.0-32.0); Mean Corpuscular Volume 88.2 fL (81-99); Mean Platelet Vol. 10.6 fl (6.2-12.0); Monocyte# 0.74 X10^3/uL; Neutrophil # 4.07 X10^3/uL (2.7-7.7); Neutrophil % 54.7 % (47-70); Platelet Count 307 K/mm3 (150-450); RBC Distribution Width CV 12.4 % (11.6-14.6); RBC Distribution Width SD 39.4 fl (35.1-43.9); Red Blood Count 4.99 M/mm3 (4.2-5.4); White Blood Count 7.4 K/mm3 (4.4-11.0)
[2018-09-16 13:03] LABS: POSITIVE COUNT NO; POSITIVE DIFFERENTIAL NO; POSITIVE MORPHOLOGY NO
[2018-09-16 13:09] LABS: Hemoglobin A1c 5.9 % (4.2-6.3)
[2018-09-16 13:18] LABS: Vitamin B12 341 pg/mL (211-911)
[2018-09-16 13:48] LABS: ALB/GLOB Ratio 0.9 RATIO (0.9-2.4); AST(SGOT) 22 U/L (15-37); Alanine Aminotransfer ALT/SGPT 35 U/L (13-56); Albumin, Serum 3.6 g/dL (3.2-5.0); Alkaline Phosphatase 77 U/L (45-117); Anion Gap 5 (5-15); BUN 6 mg/dL (7-18); BUN/Creat Ratio 8.1 RATIO (10-20); CRP 3.56 mg/L (0.0-3.0); Calcium,Total 9.1 mg/dL (8.5-10.1); Chloride 105 mmol/L (98-107); Creatinine, Serum 0.74 mg/dL (0.55-1.02); EST Glomerular Filtration Rate 91 mL/min (>60); Est Glom Filt Rate - Afr Amer 110 mL/min (>60); Ferritin 201 ng/mL (8-252); Free T3 2.7 pg/mL (2.18-3.98); Globulin 3.8 g/dL (2.2-4.2); Glucose 73 mg/dL (74-106); Iron 111 ug/dL (50-170); Potassium 3.9 mmol/L (3.5-5.1); Protein, Total 7.4 g/dL (6.4-8.2); Sodium Level 138 mmol/L (136-145); Thyroid Stim Hormone (TSH) 0.81 uIU/mL (0.358-3.74)
== END | disposition home or self-care (01) ==
PROVIDERS: Family Provider Family Medicine; PCP Family Medicine; Visit Provider Family Medicine
DX: R06.00 Dyspnea, unspecified (principal); R05 Cough; E03.9 Hypothyroidism, unspecified; M25.50 Pain in unspecified joint; M79.10 Myalgia, unspecified site; D64.9 Anemia, unspecified; R53.83 Other fatigue; R73.01 Impaired fasting glucose
CPT/HCPCS: 36415; 71046; 80053; 82607; 82728; 82746; 83036; 83540; 84443; 84481; 85025; 85379; 85652; 86140

== ENCOUNTER → 2018-10-07 | Outpatient (CLI) | payer MEDICAID, SELFPAY ==
--- NOTE | 2018-10-08 11:02 | PFTCOMP ---
COMPLETE PULMONARY FUNCTION TEST INTERPRETATION Brief HPI: Patient is a 43 year old female, currently under the care of Dr. Reaves, who presents to [facility] for complete pulmonary function tests secondary to diagnosis of dyspnea. Respiratory therapist reports good effort and reproducible results. Interpretation: Forced expiration spirometry shows no large airways obstructive ventilatory defect with an FEV1 of 84% predicted. There is no significant bronchodilator response by strict ATS criteria. Spirograms are of good quality and plateau normally. The respiratory flow volume loop shows a normal pattern. Lung volumes by body plethysmography show slightly reduced total lung capacity at 4.28 L, 85% predicted. All other lung volumes are reduced symmetrically. Diffusion capacity by carbon monoxide is normal at 83% predicted. The airway resistance is slightly elevated. No previous pulmonary function tests were available for review. Impression: Mild restrictive ventilatory defect with a symmetric reduction diffusing capacity, possibly secondary to body habitus, but early interstitial lung disease cannot be excluded.
== END | disposition home or self-care (01) ==
PROVIDERS: Family Provider Family Medicine; PCP Family Medicine; Referring Provider Family Medicine; Visit Provider Family Medicine
DX: R06.00 Dyspnea, unspecified (principal); R05 Cough; R09.89 Other specified symptoms and signs involving the circulatory and respiratory systems
CPT/HCPCS: 94060; 94726; 94729

== ENCOUNTER → 2018-12-08 | Outpatient (CLI) | payer MEDICAID, SELFPAY ==
[2018-11-16 13:08] VITALS: BMI 36.8
[2018-12-08 15:55] LABS: ALB/GLOB Ratio 0.9 RATIO (0.9-2.4); AST(SGOT) 17 U/L (15-37); Alanine Aminotransfer ALT/SGPT 29 U/L (13-56); Albumin, Serum 3.6 g/dL (3.2-5.0); Alkaline Phosphatase 77 U/L (45-117); Anion Gap 8 (5-15); BUN 7 mg/dL (7-18); Calcium,Total 8.9 mg/dL (8.5-10.1); Chloride 107 mmol/L (98-107); EST Glomerular Filtration Rate 97 mL/min (>60); Est Glom Filt Rate - Afr Amer 117 mL/min (>60); Globulin 3.9 g/dL (2.2-4.2); Glucose 88 mg/dL (74-106); Potassium 3.8 mmol/L (3.5-5.1); Protein, Total 7.5 g/dL (6.4-8.2); Sodium Level 141 mmol/L (136-145)
== END | disposition home or self-care (01) ==
LOC: BFHLAB 13:32
PROVIDERS: Family Provider Family Medicine; PCP Family Medicine; Visit Provider Family Medicine
DX: R63.1 Polydipsia (principal); R35.8 Other polyuria
CPT/HCPCS: 36415; 80053

== ENCOUNTER → 2018-12-20 | Outpatient (CLI) | payer MEDICAID, SELFPAY ==
[2018-11-16 13:08] VITALS: BMI 36.8
--- NOTE | 2018-12-20 09:07 | RAD_ITS ---
STUDY: X-RAY - LEFT ELBOW REASON FOR EXAM: Female, 43 years old. Left elbow pain. TECHNIQUE: 3 view(s) of the elbow. COMPARISON: None. FINDINGS: Normal visualized humerus, radius and ulna. Normal radiocapitellar and ulnotrochlear articulations. The soft tissue structures are unremarkable. RAD/Elbow min 3 Views IMPRESSION: Normal x-ray examination of the elbow. Electronically Signed: Heladio Goddard, at 15:03 EDT , Service support ,
== END | disposition home or self-care (01) ==
LOC: HPRAD 09:06
PROVIDERS: Family Provider Family Medicine; PCP Family Medicine; Referring Provider Orthopaedic Surgery; Visit Provider Orthopaedic Surgery
DX: M25.522 Pain in left elbow (principal)
CPT/HCPCS: 73080

== ENCOUNTER 2019-01-12 16:35 | Emergency (ER) | payer MEDICAID, SELFPAY ==
[2018-12-20 09:23] VITALS: BMI 36.8
[2019-01-12 16:35] VITALS: BP 166/107; PULSE 79; RESP 19; TEMP 35.9; O2SAT 99; BMI 36.6
--- NOTE | 2019-01-12 16:52 | RAD_ITS ---
STUDY: X-RAY CHEST REASON FOR EXAM: Female, 43 years old. Chest pain. TECHNIQUE: Single AP portable view of the chest. COMPARISON: 09/16/2018. FINDINGS: The lungs are clear and expanded. There is no demonstrated pleural abnormality. Normal size heart. Normal mediastinum and oleksandr. Normal visualized pulmonary arteries. Normal visualized aortic arch and descending thoracic aorta. Normal visualized thoracic spine. Normal visualized ribs, clavicles, and shoulders. There is no demonstrated abnormality of the visualized soft tissue structures of the upper abdomen. RAD/Chest 1 View (Portable) IMPRESSION: Normal x-ray examination of the chest. Electronically Signed: Leonides Richter MD at 17:20 EDT , Service support ,
--- NOTE | 2019-01-12 16:53 | EKG12_ITS ---
Test Reason : CP Blood Pressure : / mmHG Vent. Rate : 072 BPM Atrial Rate : 072 BPM P-R Int : 138 ms QRS Dur : 072 ms QT Int : 380 ms P-R-T Axes : 038 014 -09 degrees QTc Int : 416 ms Normal sinus rhythm Minimal voltage criteria for LVH, may be normal variant Nonspecific ST abnormality Abnormal ECG Confirmed by CLAUS WILSON, JENNIFER ([id number]), news videotape editor GABRIELA REZA ([id number]) on 01/14/2019 1:31:10 PM Referred By: DAYDAY Confirmed By:ILENE DEVLIN MD
[2019-01-12] MEDS: 0.9% Normal Saline 1,000 ML 1000 ML IV (17:02)
[2019-01-12] MEDS: Mag Hydrox/Al Hydrox/Simeth 30 ML UDC PO (17:02)
[2019-01-12 17:11] LABS: Absolute Lymphocyte Count 3.37 X10^3/uL (0.83-4.51); Absolute Neutrophil Count 4.8 X10^3/uL (2.0-7.7); Basophil# 0.05 X10^3/uL; Basophil% 0.5 % (0-1); Eosinophils% 1.1 % (0-5); Hemoglobin 14.7 g/dL (12.0-15.0); Lymphocyte # 3.37 X10^3/ul (4.0); Lymphocyte % 36.7 % (19-41); Mean Corp Hgb Conc 32.7 g/dL (32-36); Mean Corpuscular Hgb 29.2 pg (27.0-32.0); Mean Corpuscular Volume 89.3 fL (81-99); Mean Platelet Vol. 10.4 fl (6.2-12.0); Monocyte# 0.86 X10^3/uL; Monocyte% 9.4 % (0-10); NRBC Flagged by Analyzer 0 % (0-5); Neutrophil # 4.76 X10^3/uL (2.7-7.7); Neutrophil % 51.9 % (47-70); Platelet Count 373 K/mm3 (150-450); RBC Distribution Width CV 11.9 % (11.6-14.6); RBC Distribution Width SD 38.4 fl (35.1-43.9); Red Blood Count 5.04 M/mm3 (4.2-5.4); White Blood Count 9.2 K/mm3 (4.4-11.0)
[2019-01-12 17:21] LABS: Anion Gap 4 (5-15); BUN 10 mg/dL (7-18); BUN/Creat Ratio 10.7 RATIO (10-20); Calcium,Total 8.9 mg/dL (8.5-10.1); Chloride 106 mmol/L (98-107); Creatinine, Serum 0.93 mg/dL (0.55-1.02); EST Glomerular Filtration Rate 70 mL/min (>60); Est Glom Filt Rate - Afr Amer 84 mL/min (>60); Estimated Creatinine Clearance 67.35 ml/min; Glucose 100 mg/dL (74-106); Potassium 3.9 mmol/L (3.5-5.1); Sodium Level 138 mmol/L (136-145)
--- NOTE | 2019-01-12 17:38 | ED.VISSUMM ---
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 She reports that she has pain below her left breast that began at noon today while she was at rest. She describes it as a sharp pressure. States it is not worsened by exertion. It seemed to worsen while she was driving. Is relieved by rest and omeprazole. She states that is 10 out of 10 at worst and 6 out of 10 currently. She reports is been nauseated and diaphoretic with this. She also reports mild shortness of breath. She also reports that she has been burping more than usual. Patient has no cardiac risk factors. She has no personal family history of DVT. No recent travel. No ankle swelling or calf pain. She does have a history of reflux and a Buster fundoplication. Physical Examination: Vitals: Stable. Afebrile. General: Well-nourished and well-developed. Head: Normocephalic atraumatic. Neck: Supple, no lymphadenopathy. No JVD. Nontender. Cardiovascular: Regular rate and rhythm. No murmurs. Respiratory: No respiratory distress. Clear to auscultation bilaterally. Abdominal: Soft, nontender, nondistended, normal bowel sounds. No guarding, rebound, or peritoneal signs. Back: Nontender. Extremities: Nontender, no edema. Skin: Normal color, no rash. Neurologic: Alert and oriented ?3. Cranial nerves II through XII are intact. Normal strength and sensation. Psych: Normal affect. Test Results: EKG is sinus at [address] changes. Unchanged from October 2017. Troponin is negative despite 5 hours of constant chest pain. Chem-7 is normal. CBC is normal. Chest x-ray is normal. Emergency Department Course and Treatment: Patient was treated with a GI cocktail and her symptoms resolved. She is resting comfortably. Treatment Plan: Patient will be discharged with Zantac. Instructed to follow-up Dr. Reaves in 3 to 5 days for another exam. Return to the emergency department for any worsening symptoms. Disposition: To home in improved and stable condition. Impression: 1. Atypical chest pain. This note was generated with [employer] dictation software. It may contain incorrect words, spelling, and punctuation that were not noted in review of the chart prior to signing ED Disposition - Plan for ED Patient: Disposition: Home or Assisted Living Instructions: CHEST PAIN, Uncertain Cause Prescriptions: Ranitidine [Zantac] 300 mg PO DAILY #30 tab Prescription Printed Referrals: Bette Reaves DO [Primary Care Provider] - 3-5 Days
[2019-01-12 18:04] VITALS: BP 157/91; PULSE 78; RESP 16; O2SAT 98
== END 2019-01-12 18:08 | disposition home or self-care (01) ==
LOC: ED 16:54
PROVIDERS: Emergency Provider Emergency Medicine; Family Provider Family Medicine; PCP Family Medicine
DX: R07.89 Other chest pain (principal); R61 Generalized hyperhidrosis; R11.0 Nausea; R06.00 Dyspnea, unspecified; K21.9 Gastro-esophageal reflux disease without esophagitis; K52.9 Noninfective gastroenteritis and colitis, unspecified; M79.7 Fibromyalgia; E03.9 Hypothyroidism, unspecified; Z79.899 Other long term (current) drug therapy
CPT/HCPCS: 71045; 80048; 84484; 85025; 93005; 96360; 99285; A4216

== ENCOUNTER → 2019-01-31 09:00 | Outpatient (CLI) | payer MEDICAID, SELFPAY ==
[2019-01-31 08:42] VITALS: BMI 36.6
--- NOTE | 2019-01-31 09:02 | RAD_ITS ---
STUDY: X-RAY - CERVICAL SPINE REASON FOR EXAM: Female, 43 years old. Neck pain. TECHNIQUE: 5 view(s) of the cervical spine were obtained. COMPARISON: None FINDINGS: Normal anterior atlantoaxial articulation. Normal odontoid process. There is straightening of the normal cervical lordosis. Multilevel moderate degenerative disc disease most pronounced at C5-C6. Bilateral narrowing of the neural foramina at C5-C6. The soft tissue structures are unremarkable. There is no demonstrated fracture of the cervical spine. RAD/Cerv Spine 4 or 5 Views IMPRESSION: Multilevel degenerative disc disease most pronounced at C5-C6. Electronically Signed: Leonides Richter MD at 22:24 EDT , Service support ,
== END ==
PROVIDERS: Family Provider Family Medicine; PCP Family Medicine; Referring Provider Orthopaedic Surgery; Visit Provider Orthopaedic Surgery
DX: M79.602 Pain in left arm (principal)
CPT/HCPCS: 72050

== ENCOUNTER → 2019-02-17 06:33 | Outpatient (CLI) | payer MEDICAID, SELFPAY ==
[2019-01-31 08:42] VITALS: BMI 36.6
--- NOTE | 2019-02-17 06:35 | MRI_ITS ---
STUDY: MRI CERVICAL SPINE WITHOUT CONTRAST REASON FOR EXAM: Female, 43 years old. Neck pain, left arm pain and radiculopathy. TECHNIQUE: Standardized fat and water weighted pulse sequences were obtained in the sagittal and axial planes. COMPARISON: X-ray 01/31/2019 FINDINGS: Normal foramen magnum and brainstem-cervical cord junction. Normal craniovertebral junction. Normal anterior atlantoaxial articulation. Normal odontoid process. There is straightening of the normal cervical lordosis. Normal vertebral bodies and posterior osseous elements. C2-3: Normal endplates. Normal disc height, signal and morphology. Normal central canal and intervertebral neural foramina. C3-4: Mild left facet hypertrophy. Mild broad disc osteophyte complex and bilateral uncovertebral hypertrophy produces mild spinal stenosis and mild left neural foraminal stenosis. C4-5: Mild left facet hypertrophy. Small central disc protrusion produces mild spinal stenosis. No neural foraminal stenosis. C5-6: Mild broad disc osteophyte complex asymmetric to the left and bilateral carotid joint hypertrophy produces mild spinal stenosis but no neural foraminal stenosis. C6-7: Mild bilobed disc osteophyte complex and bilateral vertebral hypertrophy produces mild spinal stenosis but no neural foraminal stenosis. C7-T1: Normal endplates. Normal disc height, signal and morphology. Normal central canal and intervertebral neural foramina. Normal cervical cord. Normal visualized soft tissue structures. MRI/Spine Cervical (Routine) IMPRESSION: Multilevel degenerative changes, as described above. Electronically Signed: Ravi Henley MD at 8:46 EDT Tel , Service support ,
== END ==
PROVIDERS: Family Provider Family Medicine; PCP Family Medicine; Referring Provider Orthopaedic Surgery; Visit Provider Orthopaedic Surgery
DX: M54.10 Radiculopathy, site unspecified (principal)
CPT/HCPCS: 72141

== ENCOUNTER → 2019-06-20 10:06 | Outpatient (CLI) | payer OTHER, MEDICAID, SELFPAY ==
[2019-05-12 16:29] VITALS: BMI 37.5
[2019-06-20 12:20] LABS: Absolute Lymphocyte Count 2.15 X10^3/uL (0.83-4.51); Absolute Neutrophil Count 3.4 X10^3/uL (2.0-7.7); Basophil# 0.05 X10^3/uL; Basophil% 0.8 % (0-1); Eosinophil# 0.04 X10^3/uL; Eosinophils% 0.6 % (0-5); Hematocrit 43.6 % (37-47); Hemoglobin 14.1 g/dL (12.0-15.0); Lymphocyte # 2.15 X10^3/ul (4.0); Lymphocyte % 33.4 % (19-41); Mean Corp Hgb Conc 32.3 g/dL (32-36); Mean Corpuscular Hgb 28.9 pg (27.0-32.0); Mean Corpuscular Volume 89.3 fL (81-99); Mean Platelet Vol. 10.8 fl (6.2-12.0); Monocyte# 0.76 X10^3/uL; Monocyte% 11.8 % (0-10); NRBC Flagged by Analyzer 0 % (0-5); Neutrophil # 3.39 X10^3/uL (2.7-7.7); Neutrophil % 52.6 % (47-70); Platelet Count 295 K/mm3 (150-450); RBC Distribution Width CV 12.2 % (11.6-14.6); RBC Distribution Width SD 39.9 fl (35.1-43.9); Red Blood Count 4.88 M/mm3 (4.2-5.4); White Blood Count 6.4 K/mm3 (4.4-11.0)
[2019-06-20 12:36] LABS: Hemoglobin A1c 6.1 % (4.2-6.3)
[2019-06-20 12:38] LABS: AST(SGOT) 31 U/L (15-37); Alanine Aminotransfer ALT/SGPT 50 U/L (13-56); Albumin, Serum 3.7 g/dL (3.2-5.0); Alkaline Phosphatase 86 U/L (45-117); Anion Gap 4 (5-15); BUN 6 mg/dL (7-18); BUN/Creat Ratio 8.7 RATIO (10-20); Calcium,Total 8.6 mg/dL (8.5-10.1); Chloride 105 mmol/L (98-107); Cholesterol 273 mg/dL (200); Creatinine, Serum 0.69 mg/dL (0.55-1.02); EST Glomerular Filtration Rate 98 mL/min (>60); Est Glom Filt Rate - Afr Amer 119 mL/min (>60); Free T3 2.3 pg/mL (2.18-3.98); Globulin 3.6 g/dL (2.2-4.2); Glucose 80 mg/dL (74-106); High Density Lipoprotein 44 mg/dL; Potassium 3.7 mmol/L (3.5-5.1); Protein, Total 7.3 g/dL (6.4-8.2); Sodium Level 138 mmol/L (136-145); T4 Free Direct 0.83 ng/dL (0.76-1.46); Thyroid Stim Hormone (TSH) 7.56 uIU/mL (0.358-3.74); Triglycerides 338 mg/dL; Very Low Density Lipoprotein 68 mg/dL (5-40)
[2019-06-21 09:12] LABS: Vitamin B12 334 pg/mL (211-911)
== END ==
PROVIDERS: PCP Family Medicine; Referring Provider Family Medicine; Visit Provider Family Medicine
DX: E11.9 Type 2 diabetes mellitus without complications (principal); E03.9 Hypothyroidism, unspecified; E78.5 Hyperlipidemia, unspecified; E53.8 Deficiency of other specified B group vitamins; E55.9 Vitamin D deficiency, unspecified; Z51.81 Encounter for therapeutic drug level monitoring
CPT/HCPCS: 36415; 80053; 80061; 82306; 82607; 83036; 84439; 84443; 84481; 85025

== ENCOUNTER 2019-07-02 10:19 | Emergency (ER) | payer OTHER, MEDICAID, SELFPAY ==
[2019-05-12 16:29] VITALS: BMI 37.5
[2019-07-02 10:20] VITALS: BP 164/94; PULSE 78; RESP 16; TEMP 36.1; O2SAT 97; BMI 37.8
[2019-07-02 10:27] VITALS: BP 166/89; RESP 16
--- NOTE | 2019-07-02 10:35 | CT_ITS ---
STUDY: CT BRAIN WITHOUT CONTRAST REASON FOR EXAM: Female, 44 years old. Headaches for 4 days and hypertension RADIATION DOSAGE (If Supplied By Facility): CTDIvol = ( 44.99 ) mGy, DLP = ( 762.36 ) mGycm TECHNIQUE: Transaxial CT imaging of the brain was performed without administration of intravenous contrast material. Individualized dose optimization techniques were used for this CT. COMPARISON: 11/06/2017. FINDINGS: Normal soft tissue structures. Normal calvarium. Normal size ventricles and extra-axial spaces for the patient''s age. Normal white matter tracts of the cerebral hemispheres. Normal basal ganglia and thalami. Normal brainstem. Normal cerebellum. There is no intracranial hemorrhage. There are no findings of an acute ischemic infarction. Normal visualized paranasal sinuses. CT/Brain/Head without Contrast IMPRESSION: Normal unenhanced CT scan of the brain. Electronically Signed: Nicholas Norman MD at 11:23 EST Tel , Service support ,
[2019-07-02] MEDS: DiphenhydrAMINE 50 MG/ML Syringe IV (10:49)
[2019-07-02] MEDS: Ketorolac 30 MG/ML Syringe IV (10:49)
[2019-07-02] MEDS: 0.9% Normal Saline 1,000 ML 999 ML IV (10:49)
[2019-07-02] MEDS: Metoclopramide 10 MG/2 ML Vial IV (10:50)
--- NOTE | 2019-07-02 10:57 | ED.DCSUM_ITS ---
- ER Visit Summary Date of Service: 07/02/19 Chief Complaint: High blood pressure and headache History of Present Illness: The patient is a [address] Willis. She reports that she has had a headache off and on for the past 3 weeks. Is been worse over the past 4 days. She reports that the throbbing pain right congregation that is 10 out of 10 at worst and 6 out of 10 currently. It is worsened by light. She is had nausea without vomiting. Patient reports that her blood pressure typically is 116/60. However, for the past week it is been 140-160/90?110. She saw her primary care physician yesterday and was placed on clonidine. She took 0.1 mg last night and reports that it made her very tired and she just fell asleep. States it did not seem to help her blood pressure. It is prescribed to take every 4 to 6 hours as needed for blood pressure spikes. Review of systems is otherwise negative. Physical Examination: Vitals: 97.0, 166/89, 78, 16, 97% on room air which is not hypoxic. General: Well-nourished and well-developed. Head: Normocephalic atraumatic. Neck: Supple, no lymphadenopathy. No JVD. Nontender. Cardiovascular: Regular rate and rhythm. No murmurs. Respiratory: No respiratory distress. Clear to auscultation bilaterally. Abdominal: Soft, nontender, nondistended, normal bowel sounds. No guarding, rebound, or peritoneal signs. Back: Nontender. Extremities: Nontender, no edema. Skin: Normal color, no rash. Neurologic: Alert and oriented ?3. Cranial nerves II through XII are intact. Normal strength and sensation. Psych: Normal affect. Test Results: CBC is normal except immature granulocytes of 3.5%. Chem-7 shows a potassium 3.3, chloride 108, glucose 118, calcium 8.3. Clinical Impression(s) from Imaging Studies Brain CT 07/02/19 10:35 IMPRESSION: Normal unenhanced CT scan of the brain. Electronically Signed: Nicholas Norman MD at 11:23 EST Tel , Service support , Emergency Department Course and Treatment: Patient had an IV placed. She was given Toradol, Reglan, and Benadryl IV. She is resting more comfortably. Blood pressure has decreased to 136/76 without any treatment. Treatment Plan: Patient be discharged with symptomatic care. Push fluids. Follow-up with primary care physician in 1 week for another exam. At this time I do not think that putting her on other blood pressure medications as indicated. Return to the emergency department for any worsening symptoms. Disposition: To home in improved and stable condition. Impression: 1. Cephalgia. 2. Hypertension. This note was generated with [employer] dictation software. It may contain incorrect words, spelling, and punctuation that were not noted in review of the chart prior to signing ED Disposition - Plan for ED Patient: Instructions: HEADACHE, Unspecified Referrals: Bette Reaves [Primary Care Provider] - 1 Week
[2019-07-02 11:02] LABS: Absolute Lymphocyte Count 2.05 X10^3/uL (0.83-4.51); Absolute Neutrophil Count 3.4 X10^3/uL (2.0-7.7); Basophil# 0.06 X10^3/uL; Eosinophil# 0.04 X10^3/uL; Eosinophils% 0.6 % (0-5); Hematocrit 41.7 % (37-47); Hemoglobin 13.7 g/dL (12.0-15.0); Lymphocyte # 2.05 X10^3/ul (4.0); Mean Corp Hgb Conc 32.9 g/dL (32-36); Mean Corpuscular Hgb 29.5 pg (27.0-32.0); Mean Corpuscular Volume 89.9 fL (81-99); NRBC Flagged by Analyzer 0 % (0-5); Neutrophil # 3.35 X10^3/uL (2.7-7.7); Neutrophil % 53.9 % (47-70); Platelet Count 256 K/mm3 (150-450); RBC Distribution Width CV 12.4 % (11.6-14.6); RBC Distribution Width SD 40.5 fl (35.1-43.9); Red Blood Count 4.64 M/mm3 (4.2-5.4); White Blood Count 6.2 K/mm3 (4.4-11.0)
[2019-07-02 11:25] LABS: Anion Gap 7 (5-15); BUN 7 mg/dL (7-18); Calcium,Total 8.3 mg/dL (8.5-10.1); Chloride 108 mmol/L (98-107); Creatinine, Serum 0.78 mg/dL (0.55-1.02); EST Glomerular Filtration Rate 86 mL/min (>60); Est Glom Filt Rate - Afr Amer 104 mL/min (>60); Estimated Creatinine Clearance 79.48 ml/min; Glucose 182 mg/dL (74-106); Potassium 3.3 mmol/L (3.5-5.1); Sodium Level 138 mmol/L (136-145)
[2019-07-02 11:48] VITALS: BP 136/76; PULSE 75; RESP 15; O2SAT 96
--- NOTE | 2019-07-02 11:50 | ED.RN ---
REVIEWED D/C INSTRUCTIONS, FOLLOW UP CARE, AND S/S THAT WOULD WARRANT A RETURN TO THE ED WITH PT. PT VERBALIZED AN UNDERSTANDING AND DENIES FURTHER QUESTIONS FOR THIS RN. PT SKIN P/W/D, RESP EVEN AND UNLABORED, PT A&OX 3, NO DISTRESS NOTED. PT AMBULATED OUT OF ED, GAIT STEADY.
== END 2019-07-02 11:51 | disposition home or self-care (01) ==
LOC: ED 10:56
PROVIDERS: Emergency Provider Emergency Medicine; PCP Family Medicine
DX: R51 Headache (principal); I10 Essential (primary) hypertension; K52.9 Noninfective gastroenteritis and colitis, unspecified; J45.909 Unspecified asthma, uncomplicated; M19.90 Unspecified osteoarthritis, unspecified site; M79.7 Fibromyalgia; Z79.899 Other long term (current) drug therapy
CPT/HCPCS: 70450; 80048; 85025; 96361; 96374; 96375; 99285; J7030; A4216

== ENCOUNTER → 2019-07-04 15:58 | Outpatient (CLI) | payer OTHER, MEDICAID, SELFPAY ==
[2019-07-04 15:58] VITALS: BMI 37.8
[2019-07-04 17:01] LABS: Anion Gap 8 (5-15); BUN 11 mg/dL (7-18); BUN/Creat Ratio 15.6 RATIO (10-20); Calcium,Total 8.9 mg/dL (8.5-10.1); Chloride 103 mmol/L (98-107); Creatinine, Serum 0.71 mg/dL (0.55-1.02); EST Glomerular Filtration Rate 96 mL/min (>60); Est Glom Filt Rate - Afr Amer 116 mL/min (>60); Glucose 102 mg/dL (74-106); Magnesium 2.2 mg/dL (1.6-2.6); Potassium 3.7 mmol/L (3.5-5.1); Sodium Level 139 mmol/L (136-145)
== END ==
PROVIDERS: PCP Family Medicine; Referring Provider Internal Medicine Cardiovascular Disease; Visit Provider Internal Medicine Cardiovascular Disease
DX: I10 Essential (primary) hypertension (principal); I49.1 Atrial premature depolarization; I49.3 Ventricular premature depolarization; R00.2 Palpitations
CPT/HCPCS: 36415; 80048; 83735

== ENCOUNTER → 2019-07-12 | Outpatient (CLI) | payer OTHER, MEDICAID, SELFPAY ==
[2019-07-04 15:00] VITALS: BMI 37.8
[2019-07-04 15:58] VITALS: BMI 37.8
--- NOTE | 2019-07-12 08:44 | RDU_ITS ---
Reason For Study: HTN Right Renal Artery Left Renal Artery Right renal artery ostium 97.9/45.5 Left renal artery ostium 104.2/35.8 RSV/EDV. PSV/EDV. Right renal artery proximal Left renal artery proximal PSV/EDV 123/45.7 PSV/EDV. 111.4/53.8 . Right renal artery mid 118/52.6 Left renal artery mid 114.5/46 PSV/EDV. PSV/EDV . Right renal artery distal Left renal artery distal 125.5/49.7 143.3/58.9 PSV/EDV. PSV/EDV. Right RAR 1.54. Left RAR 1.57. Right Renal Parenchyma Left Renal Parenchyma Upper Pole Medula 29.7/16 PSV/EDV. Left upper pole medulla 31.9/12.8 Right upper pole medulla EDR 0.54 . PSV/EDV . Right upper pole medulla R.I. Left upper pole medulla EDR 0.40 . 0.46 . Left upper pole medulla R.I. 0.60 . Upper Ivan Cortx 19.3/8.9 PSV/EDV. UP Cortex 23.9/11 PSV/EDV. Right upper pole cortex EDR 0.46 . Left upper pole cortex EDR 0.46 . Right upper pole cortex R.I. 0.54 . Left upper pole cortex R.I. 0.54 . Right lower Pole medulla 35.6/16.5 Left lower Pole medulla 42.3/20.2 PSV/EDV . PSV/EDV . Right lower pole medulla EDR 0.46 . Left lower pole medulla EDR 0.47 . Right lower pole medulla R.I. Left lower pole medulla R.I. 0.52 . 0.54 . Lower Pole Cortx 23.9/11.6 PSV/EDV. Lower Pole Cortex 27.9/11.6 Left lower pole cortex EDR 0.49 . PSV/EDV. Left lower pole cortex R.I. 0.51 . Right lower pole cortex EDR 0.42 . Left Renal Hilar Right lower pole cortex R.I. 0.58 . LT Hilar avg 51.1/22.7 PSV/EDV . Right Renal Hilar Left hilar acceleration time 30 Right Hilar avg 50.1/22.7 PSV/EDV. m/sec. Right hilar acceleration time 40 Left Renal Dimensions m/sec. Left kidney size 11.42 cm . Right Renal Dimensions Left cortical dimension 1.90 cm . Right kidney size 10.91 cm . Right cortical dimension 1.66 cm . Aorta Proximal abdominal aorta 1.48 x 1.48 cm . Proximal abdominal aorta peak systolic velocity is 79.7 cm/sec . Distal abdominal aorta 1.19 x 1.21 cm . Distal abdominal aorta peak systolic velocity is 94.8 cm/sec . Interpretation Summary 1. Bilateral renal arteries ith <60% stenosis. Ordering Physician: Darinel Emerson Referring Physician: Bette Reaves Performed By: Dorinda Stahl RVT
== END | disposition home or self-care (01) ==
LOC: CVS 08:44
PROVIDERS: PCP Family Medicine; Referring Provider Internal Medicine Cardiovascular Disease; Visit Provider Internal Medicine Cardiovascular Disease
DX: I10 Essential (primary) hypertension (principal); I49.1 Atrial premature depolarization; I49.3 Ventricular premature depolarization; R00.2 Palpitations
CPT/HCPCS: 93975

== ENCOUNTER 2019-08-15 13:00 | Outpatient (RCR) | payer OTHER, MEDICAID, SELFPAY ==
[2019-07-04 15:58] VITALS: BMI 37.8
== END 2019-08-25 23:59 ==
LOC: DC 13:00
PROVIDERS: PCP Family Medicine; Visit Provider Family Medicine
DX: Z71.3 Dietary counseling and surveillance (principal); E11.9 Type 2 diabetes mellitus without complications
CPT/HCPCS: 97802; G0108

== ENCOUNTER 2019-08-31 13:17 | Outpatient (RCR) | payer OTHER, MEDICAID, SELFPAY ==
[2019-08-10 11:12] VITALS: BMI 38.6
== END 2019-09-25 23:59 ==
LOC: DC 13:17
PROVIDERS: PCP Family Medicine; Visit Provider Family Medicine
DX: Z71.3 Dietary counseling and surveillance (principal); E11.9 Type 2 diabetes mellitus without complications
CPT/HCPCS: G0108

== ENCOUNTER → 2019-09-07 10:30 | Outpatient (CLI) | payer OTHER, MEDICAID, SELFPAY ==
[2019-08-10 11:12] VITALS: BMI 38.6
[2019-09-07 13:02] LABS: Microalbumin,Random Urine 20.8 mg/L (NO RANGE EST.); Microalbumin:Creatinine Ratio 5.7 mg/g CRE (<30 mg/g CRE)
--- OUTSIDE RECORDS SUMMARY | 2020-02-07 09:47 | XMS RPT_ITS | CCD ---
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 HISTORY Diagnosis Date - Hypothyroid PAST SURGICAL HISTORY Procedure Laterality Date - GALLBLADDER/EF 2008 - HYSTERECTOMY HX 2011 done for excessive bleeding- blood transfusion then had surg omar - GISELA HX 2013 ALLERGIES Aspirin; Penicillins; Sulfa (Sulfonamide Antibioti cs); Vicodin [Hydrocodone-Acetaminophen] MEDICATIONS FREESTYLE LANCETS 28 gauge [facility] [place] FREESTYLE LITE STRIPS test strip acetaminophen (TYLENOL EXTRA STRENGTH) 500 mg tablet Take 2 tablets by mouth every 6 hours as needed for Pain. fluticasone furoate (ARNUITY ELLIPTA) 100 mcg/actuation dsdv Inhale 1 Puff as instructed once daily. albuterol HFA (PROVENTIL HFA, VENTOLIN HFA) 90 mcg/actuation inhaler Inhale 2 Puffs as instructed every 4 hours as needed. colestipol HCl (COLESTIPOL ORAL) Take 1 g by mouth four time s daily. cyclobenzaprine (FLEXERIL) 5 mg tablet venlafaxine ER (EFFEXOR XR) 75 mg 24 hr capsule Take 75 mg b y mouth once daily. SYNTHROID 112 mcg tablet Take 112 mcg by mouth once daily. cholecalciferol (VITAMIN D) 1,000 unit tab tablet Take 6 tab lets by mouth once daily. cyclobenzaprine (FLEXERIL) 5 mg tablet Take 1 tablet by mout h three times daily as needed for Muscle Spasm. gabapentin (NEURONTIN) 300 mg capsule Take 1 capsule by mout h every 8 hours for 11 doses. docusate sodium (COLACE) 100 mg capsule Take 1 capsule by mo uth twice daily. polyethylene glycol 3350 (MIRALAX) 17 gram/dose powder Take 17 g by mouth once daily as needed. for constipation. ibuprofen (MOTRIN) 600 mg tablet Take 1 tablet by mouth ever y 6 hours as needed for Pain. Take with food. Lidocaine-Aloe Vera (SOLARCAINE COOL ALOE) 0.5 % spra Apply 1 application to affected area as directed. FAMILY HISTORY Problem Relation Age of Onset - Ovarian cancer Mother 50's - Diabetes Mother - Heart Mother - Diabetes Sister Social History Tobacco Use - Smoking status: Never Smoker - Smokeless tobacco: Never Used Substance Use Topics - Alcohol use: No - Drug use: No Objective Physical Exam Constitutional: She is well-developed, well-nourished, and i n no distress. HENT: Right Ear: Tympanic membrane, external ear and ear canal nor mal. Left Ear: Tympanic membrane, external ear and ear canal norm al. Nose: Mucosal edema and rhinorrhea present. Mouth/Throat: Uvula is midline, oropharynx is clear and mois t and mucous membranes are normal. No oropharyngeal exudate, posterior or opharyngeal edema or posterior oropharyngeal erythema. Neck: Neck supple. Cardiovascular: Normal rate, regular rhythm and normal heart sounds. Pulmonary/Chest: Effort normal. No respiratory distress. She has wheezes in the right upper field and the left upper field. She has n o rales. Lymphadenopathy: She has no cervical adenopathy. Neurological: She is alert. Skin: Skin is warm and dry. No rash noted. No erythema. Nursing note and vitals reviewed. ASSESSMENT/PLAN: 1. Viral sinusitis - ICD9: 473.9, 079.99, ICD10: J32.9, B97. 89 (primary diagnosis) - Discussed viral etiology and rationale for treatment. - Symptomatic treatment with prn analgesia - Supportive care with fluids and rest - Supportive care with plenty of fluids, rest, and analgesia prn. - FLUTICASONE PROPIONATE 50 MCG/ACTUATION NASAL SPRAY,SUSPEN ZAIN - [id number] 2 MG-30 MG-10 MG/5 ML O RAL SYRUP 2. Wheezing - ICD9: 786.07, ICD10: R06.2 - PREDNISONE 10 MG TABLET - Follow-up with your PCP in 3-5 days if symptoms have not i mproved or sooner if symptoms worsen - Discussed red flags and need for immediate medical evaluat ion if any occur. - Discussed supportive care treatment with fluids, rest and analgesia. - Discussed expected course of illness JOHNSON Payan on 2019-04-30 CNOV Office Visit (UCWSTR) Normal 04-30-[address] [place] [address] Sola LUNADIANE Lpoez ([id number]) 1975 [facility] Date Time Provider Department ([id number]) 04/30/19 12:30 PM SAMANTHA STAFFORD (FLEXOGRAPHIC PRESS SET UP OPERATOR) WS During your visit today, we recorded the following informati on about you: Temperature Pulse Respiration Blood pressure 98.5 degrees 83/minute 18/minute 120/74 Weight 99.2 kg Samantha Stafford APRN.CNP 04/30/2019 1:41 PM Signed Subjective HPI Diane Luna is a 43 year old female who presents with c ough, sinus congestion for the past 5 days. She has been using her inhalers and claritin and sudafed and ibuprofen. Review of Systems Constitutional: Negative. Negative for fever. HENT: Positive for congestion, ear pain and sore throat. Respiratory: Positive for cough and sputum produ ction. Negative for shortness of breath. Cardiovascular: Negative. Negative for chest pain. Neurological: Positive for headaches. BP 120/74 Pulse 83 Temp 36.9 ?C (98.5 ?F) (Tympanic) R joey 18 Wt 99.2 kg (218 lb 12.8 oz) SpO2 97% BMI 37.56 kg/m? PAST MEDICAL HISTORY Diagnosis Date - Hypothyroid PAST SURGICAL HISTORY Procedure Laterality Date - GALLBLADDER/EF 2008 - HYSTERECTOMY HX 2011 done for excessive bleeding- blood transfusion then had surg omar - GISELA HX 2013 ALLERGIES Aspirin; Penicillins; Sulfa (Sulfonamide Antibioti cs); Vicodin [Hydrocodone-Acetaminophen] MEDICATIONS FREESTYLE LANCETS 28 gauge [facility] [place] FREESTYLE LITE STRIPS test strip acetaminophen (TYLENOL EXTRA STRENGTH) 500 mg tablet T main 2 tablets by mouth every 6 hours as needed for Pain. fluticasone furoate (ARNUITY ELLIPTA) 100 mcg/ac tuation dsdv Inhale 1 Puff as instructed once daily. albuterol HFA (PROVENTIL HFA, VENTOLIN HFA) 90 m cg/actuation inhaler Inhale 2 Puffs as instructed every 4 hours as needed. colestipol HCl (COLESTIPOL ORAL) Take 1 g by mouth four time s daily. cyclobenzaprine (FLEXERIL) 5 mg tablet venlafaxine ER (EFFEXOR XR) 75 mg 24 hr capsule Take 75 mg by mouth once daily. SYNTHROID 112 mcg tablet Take 112 mcg by mouth once daily. cholecalciferol (VITAMIN D) 1,000 unit t ab tablet Take 6 tablets by mouth once daily. cyclobenzaprine (FLEXERIL) 5 mg tablet Take 1 tablet by mouth three times daily as needed for Muscle Spasm. gabapentin (NEURONTIN) 300 m g capsule Take 1 capsule by mouth every 8 hours for 11 doses. docusate sodium (COLACE) 100 mg capsule Take 1 capsule by mouth twice daily. polyethylene glycol 3350 (MIRALAX) 17 gr am/dose powder Take 17 g by mouth once daily as needed. for constipation. ibuprofen (MOTRIN) 600 mg ta blet Take 1 tablet by mouth every 6 hours as needed for Pain. Take with food. Lidocaine-Aloe Vera (SOLARCAINE COOL ALOE) 0.5 % spra Apply 1 application to affected area as directed. FAMILY HISTORY Problem Relation Age of Onset - Ovarian cancer Mother 50's - Diabetes Mother - Heart Mother - Diabetes Sister Social History Tobacco Use - Smoking status: Never Smoker - Smokeless tobacco: Never Used Substance Use Topics - Alcohol use: No - Drug use: No Objective Physical Exam Constitutional: She is well-developed, well-nourished, and i n no distress. HENT: Right Ear: Tympanic membrane, external ear and ear canal nor mal. Left Ear: Tympanic membrane, external ear and ear canal norm al. Nose: Mucosal edema and rhinorrhea present. Mouth/Throat: Uvula is midline, oropharynx is clear and mois t and mucous membranes are normal. No oropharyngeal exudate, posterior oropharyngeal edema or posterior oropharyngeal erythema. Neck: Neck supple. Cardiovascular: Normal rate, regular rhythm and normal heart sounds. Pulmonary/Chest: Effort norm al. No respiratory distress. She has wheezes in the right upper field and the left upper field. She has no rales . Lymphadenopathy: She has no cervical adenopathy. Neurological: She is alert. Skin: Skin is warm and dry. No rash noted. No erythema. Nursing note and vitals reviewed. ASSESSMENT/PLAN: 1. Viral sinusitis - ICD9: 473.9, 079.99, ICD10: J32.9, B97. 89 (primary diagnosis) - Discussed viral etiology and rationale for treatment. - Symptomatic treatment with prn analgesia - Supportive care with fluids and rest - Supportive care with plenty of fluids, rest, and analgesia prn. - FLUTICASONE PROPIONATE 50 MCG/ACTUATION NASAL SPRAY,SUSPEN ZAIN - [id number] 2 MG-30 MG-10 MG/5 ML O RAL SYRUP 2. Wheezing - ICD9: 786.07, ICD10: R06.2 - PREDNISONE 10 MG TABLET - Follow-up with your PCP in 3-5 days if symptom s have not improved or sooner if symptoms worsen - Discussed red flags and need for immediate med ical evaluation if any occur. - Discussed supportive care treatment with fluids, rest and analgesia. - Discussed expected course of illness JOHNSON Payan APRN.CNP 04/30/2019 1:26 PM Signed ASSESSMENT/PLAN: 1. Viral sinusitis - ICD9: 473.9, 079.99, ICD10: J32.9, B97. 89 (primary diagnosis) - Discussed viral etiology and rationale for treatment. - Symptomatic treatment with prn analgesia - Supportive care with fluids and rest - Supportive care with plenty of fluids, rest, and analgesia prn. - FLUTICASONE PROPIONATE 50 MCG/ACTUATION NASAL SPRAY,SUSPEN ZAIN - [id number] 2 MG-30 MG-10 MG/5 ML O RAL SYRUP 2. Wheezing - ICD9: 786.07, ICD10: R06.2 - PREDNISONE 10 MG TABLET - Follow-up with your PCP in 3-5 days if symptom s have not improved or sooner if symptoms worsen - Discussed red flags and need for immediate med ical evaluation if any occur. - Discussed supportive care treatment with fluids, rest and analgesia. - Discussed expected course of illness Samantha Stafford APRN.FLEXOGRAPHIC PRESS SET UP OPERATOR [facility] PATIENT INFO ACUTE SINUSITIS OVERVIEW Rhinosinusitis, or more commonly sinusitis, is the medical t erm for inflammation (swelling) of the lining of the sinuses and nose. The sinuses are the hollow areas within the facial bones that are connected to the nasal openings. The sinuses are lined with mucous membranes, similar to the inside of the nose. There are two main types of sinusitis: acute and chron ic. Acute sinusitis is inflammation that lasts for less than fo ur weeks while chronic sinusitis lasts for more than 12 weeks. Acute sinusitis is common, affecting approximately one million people per year in the [place]. ACUTE SINUSITIS CAUSES The most common cause of acute sinusitis is a vi ral infection associated with the common cold. Bacterial sinusitis occ urs much less commonly, in only 0.5 to 2 percent of cases, usually as a complication of viral sinus itis. Because antibiotics are effective only against bacterial, an d not viral, infections, most people do not need antibiotics for acute si nusitis. ACUTE SINUSITIS SYMPTOMS Symptoms of acute sinusitis include: ? Nasal congestion or blockage ? Thick, yellow to green discharge from the nose ? Pain in the teeth ? Pain or pressure in the face that is worse when bending fo rwards Other acute sinusitis symptoms can include fever (temperatur e greater than 100.4?F or 38?C), fatigue, cough, difficulty or inability to smell, ear pressure or fullness, headache, and bad breath. In most cases, these symptoms develop over the c ourse of one day and begin to improve within seven to 10 days. DO I NEED TO BE EXAMINED? It is difficult to know if you have a viral or bacterial sin us infection initially. However, most people with a viral infection impro ve without treatment within seven to 10 days after symptoms begin. Ba cterial sinusitis also sometimes improves without treatment, although it can a lso worsen and require treatment. If one or more of the following botherso me symptoms last more than seven days, an examination by a healthcare provider is recommended: ? Thick, yellow to green discharge from the nose ? Face or tooth pain, especially if it is only on one side ? Tenderness over the maxillary sinuses (located on the left and right side of the nose, inside the cheekbones) ? Symptoms that initially improve and then worsen When to seek immediate help ? If you have one or more of the following symptoms, you should seek medical attent ion immediately (even if symptoms have been present for less than seven days): ? High fever (>102.5? F or 39.2? C) ? Sudden, severe pain in the face or head ? Double vision or difficulty seeing ? Confusion or difficulty thinking clearly ? Swelling or redness around one or both eyes ? Stiff neck, shortness of breath ACUTE SINUSITIS TREATMENT Initial treatment of a sinus infection aims to relieve symptoms since almost everyone will improve within the first seven to 10 days. Exp erts recommend avoiding antibiotics during this time unless there is clear evidence of a severe bacterial infection. Initial treatment Pain relief ? Non-prescription pain medications, such as a cetaminophen (eg, Tylenol?) or ibuprofen (eg, Motrin?, Advil?) are recommended for pain. Nasal irrigation and saline sprays ? Rinsing the nose with a salt-water (saline) solution is called nasal irrigation or nasal lavage. Saline is also available in a standard nasa l spray, although this is not as effective as using larger amounts of water in an irrigation. Nasal irrigation is particularly useful for treating drainage down the back of the throat, sneezing, nasal dryness, and congestion. The t reatment helps by rinsing out allergens and ir ritants from the nose. Saline rinses also clean the nasal lining and can be used before appl nasra sprays containing medications, to get a better effect from the medication. Nasal lavage with warmed saline can be performed as ne eded, once per day, or twice daily for increased symptoms. Nasal lavage carries few risks when performed correctly. Saline nasal sprays and irr igation kits can be purchased [id number]. Saline mix es can also be purchased or patients can make their own solution. A variety of devices, including bulb syr inges, Neti pots, and bottle sprayers, may be used to perform nasal lavage; instructions for nasal lavage are provided in the table. At least 200 mL (about 3/4 cup) of fluid is recommended for each nostril. Nasal decongestants ? Nasal decongestant sprays, including o xymetazoline (Afrin?) and phenylephrine (Aki-synephrine?) can be used to temporarily treat congestion. However, these s prays should not be used for more than two to three days due to the risk of rebound congestion (when the nose is congested constantly unless the medication is used repeatedly). Other treatments ? Other sukhwinder atments for congestion, such as oral antihistamines (such as diphenhydramine/Benadryl?) or zinc supplements are not proven to improve symptoms of sinusitis and can have unwan lars side effects. Medications to thin secretions (such as guaifenesin) may help to clear m ucus. Secondline treatment ? If symptoms have not improved in seven to ten days, you should arrange for medical evaluation. You may need further treatment. Nasal glucocorticoids ? Nasal glucocorticoids (steroid s delivered by a nasal spray) can help to reduce sw elling inside the nose, usually within two to three days. These drugs have few side effects and dramatical ly relieve symptoms in most people. There are a number of nasal glucocorticoids available by prescription. These drugs are all effective, but differ in how frequently they must be used and how much they cost. You may need to use a nasal decongestant for a few days before starting a nasal glucocorticoid to reduce nasal swelling; this will allow the nasal glucocorticoid to reach more areas of the nasal passages Do I need an antibiotic? ? If bothersome symptom s of sinusitis persist for 10 or more days, it is possible that you have bacterial s inusitis. The need for antibiotics depends upon the severity of your symptoms. Mild symptoms ? There are two possible treatment options if you have mild sinusitis symptoms: treat with antibiotics or continue to watch and wait for one week. Watching and waiting is a reasonable opt ion because up to 75 percent of people with bacterial sinusitis improve within one katie h without antibiotics. During the watch and wait period, treatments to improve symptoms ar e recommended. If symptoms worsen or do not improve after watching and waiting, treatment with an antibiotic is usually recommended. Treatments to relieve symptoms are recommended while using antibiotics. Moderate or severe symptoms ? Most healthcare providers will prescribe an antibiotic for moderate to severe symptoms (temperature >38. 3? C or 101? F and/or severe pain that interferes with usual activities). Treatments to relieve symptoms are also recommended during a ntibiotic treatment. One of the least expensive and most effective antibiotics fo r sinusitis is amoxicillin. An alternate antibiotic johanna l be prescribed if you are allergic to penicillin. Regardless of which antibiotic is prescrib ed, it is important to follow the dosing instructions carefully and to finish the entire course of treatment. Taking the medication less often than prescribe d or stopping the medication early can lead to complications, such as a recurr ent infection. What if I do not improve with treatment? ? If you do not imp rove or worsen after a course of antibiotics, you should be re-examined. In some cases, symptoms of sinusitis improve but then recur. This is usually because the infection was not completely eliminated by the a ntibiotic. An alternate antibiotic, extend ed antibiotic treatment, and/or further testing may be recommended, depending upon your individual situation. Referring Provider: SELF [[id number]] Allergies As of Date: 04/30/2019 Noted Allergy Reaction ASPIRIN 11/15/2018 10 - Anaphylaxis PENICILLINS 07/31/2016 4 - Hives 11 - Vomiting SULFA (SULFONAMIDE ANTIBIOTICS) 07/31/2016 2 - Rash 4 - Hives VICODIN (HYDROCODONE-ACETAMINOPHE*07/31/2016 7 - Swelling Date Reviewed: 04/30/2019 Reviewed by: Samantha ([facility]) Janet - Fully Assessed Reason for Visit: Sinus Problem [99] Cmt: pressure/drainage x 5 days Cough [28] Cmt: x 5 days Primary Visit Diagnosis:Viral sinusitis [J32.9, B97.89] Other Visit Diagnosis:Wheezing [R06.2] Order(s):fluticasone (FLONASE) 50 mcg/actuation nasal sprayU se 2 Sprays in each nostril once daily. Rinse mouth after use.Disp: 1 Bottl eRfl: 0 predniSONE (DELTASONE) 10 mg tabletTake 4 tabs daily for 3 d ays, then 2 tabs daily for 3 days, then 1 tab daily for 3 days with fo od.Disp: 21 tabletRfl: 0 Wgassmyuahvnhli-Jfdevhywx-BZ (BROMFED DM) 2-30-10 mg/5 mL sy rupTake 5 mL by mouth four times daily as needed.Disp: 118 mLRfl: 0 guaiFENesin (MUCINEX) 600 mg 12 hr tabletTake 1 tablet by pa ut twice daily for 10 days.Disp: 20 tabletRfl: 0 Prescriptions as of 04/30/2019 Sig: FREESTYLE LANCETS 28 GAUGE FREESTYLE LITE STRIPS ACETAMINOPHEN 500 MG TABLET Take 2 tablets by mouth every* FLUTICASONE FUROATE 100 MCG/A* Inhale 1 Puff as instructed o * ALBUTEROL SULFATE HFA 90 MCG/* Inhale 2 Puffs as instructed * COLESTIPOL ORAL Take 1 g by mouth four times * CYCLOBENZAPRINE 5 MG TABLET VENLAFAXINE ER 75 MG CAPSULE,* Take 75 mg by mouth once aquiles * SYNTHROID 112 MCG TABLET Take 112 mcg by mouth once da* CHOLECALCIFEROL (VITAMIN D3) * Take 6 tablets by mouth once * FLUTICASONE PROPIONATE 50 MCG* Use 2 Sprays in each nostril * PREDNISONE 10 MG TABLET Take 4 tabs daily for 3 days,* BROMPHENIRAMINE-PSEUDOEPHEDRI* Take 5 mL by mouth four times * MUCINEX 600 MG TABLET, EXTEND* Take 1 tablet by mouth twice * CYCLOBENZAPRINE 5 MG TABLET Take 1 tablet by mouth three * Patient not taking: Reported on 01/10/2019 GABAPENTIN 300 MG CAPSULE Take 1 capsule by mouth every* DOCUSATE SODIUM 100 MG CAPSULE Take 1 capsule by mouth twice * Patient not taking: Reported on 01/10/2019 POLYETHYLENE GLYCOL 3350 17 G* Take 17 g by mouth once daily * Patient not taking: Reported on 01/10/2019 IBUPROFEN 600 MG TABLET Take 1 tablet by mouth every * Patient not taking: Reported on 01/10/2019 LIDOCAINE-ALOE VERA 0.5 % TOP* Apply 1 application to affect * Patient not taking: Reported on 10/25/2018 Problem List As Of Date 04/30/2019 Noted Resolved Hypothyroid [E03.9] ESTEPHANIA (stress urinary incontinence, female) [N39.*10/25/2018 Prolapse of vaginal lazo [N81.10] 10/25/2018 Rectocele [N81.6] 10/25/2018 Outlet dysfunction constipation [K59.02] 10/25/2018 Fibromyalgia [M79.7] 11/17/2018 Other instructions from your clinician: ASSESSMENT/PLAN: 1. Viral sinusitis - ICD9: 473.9, 079.99, ICD10: J32.9, B97. 89 (primary diagnosis) - Discussed viral etiology and rationale for treatment. - Symptomatic treatment with prn analgesia - Supportive care with fluids and rest - Supportive care with plenty of fluids, rest, and analgesia prn. - FLUTICASONE PROPIONATE 50 MCG/ACTUATION NASAL SPRAY,SUSPEN ZAIN - [id number] 2 MG-30 MG-10 MG/5 ML O RAL SYRUP 2. Wheezing - ICD9: 786.07, ICD10: R06.2 - PREDNISONE 10 MG TABLET - Follow-up with your PCP in 3-5 days if symptoms have not i mproved or sooner if symptoms worsen - Discussed red flags and need for immediate medical evaluat ion if any occur. - Discussed supportive care treatment with fluids, rest and analgesia. - Discussed expected course of illness Samantha Stafford APRN.FLEXOGRAPHIC PRESS SET UP OPERATOR [facility] PATIENT INFO ACUTE SINUSITIS OVERVIEW Rhinosinusitis, or more commonly sinusitis, is the medical t erm for inflammation (swelling) of the lining of the sinuses and nos e. The sinuses are the hollow areas within the facial bones that are connec lars to the nasal openings. The sinuses are lined with mucous membranes, similar to the inside of the nose. There are two main types of sinusitis: acute and chronic. Ac rayne sinusitis is inflammation that lasts for less than four weeks while ch ronic sinusitis lasts for more than 12 weeks. Acute sinusitis is c ommon, affecting approximately one million people per year in the [place] [facility] [place]. ACUTE SINUSITIS CAUSES The most common cause of acute sinusitis is a viral infectio n associated with the common cold. Bacterial sinusitis occurs much less c ommonly, in only 0.5 to 2 percent of cases, usually as a complication of viral sinusitis. Because antibiotics are effective only against bacterial, an d not viral, infections, most people do not need antibiotics for acute si nusitis. ACUTE SINUSITIS SYMPTOMS Symptoms of acute sinusitis include: ? Nasal congestion or blockage ? Thick, yellow to green discharge from the nose ? Pain in the teeth ? Pain or pressure in the face that is worse when bending fo rwards Other acute sinusitis symptoms can include fever (temperatur e greater than 100.4?F or 38?C), fatigue, cough, difficulty or inability to smell, ear pressure or fullness, headache, and bad breath. In most cases, these symptoms develop over the course of one day and begin to improve within seven to 10 days. DO I NEED TO BE EXAMINED? It is difficult to know if you have a viral or bacterial sin us infection initially. However, most people with a viral infection impro ve without treatment within seven to 10 days after symptoms begin. Bact erial sinusitis also sometimes improves without treatment, althoug h it can also worsen and require treatment. If one or more of the following bothersome symptoms last mor e than seven days, an examination by a healthcare provider is recommended : ? Thick, yellow to green discharge from the nose ? Face or tooth pain, especially if it is only on one side ? Tenderness over the maxillary sinuses (located on the left and right side of the nose, inside the cheekbones) ? Symptoms that initially improve and then worsen When to seek immediate help ? If you have one or more of the following symptoms, you should seek medical attention immediately (ninfa n if symptoms have been present for less than seven days): ? High fever (>102.5? F or 39.2? C) ? Sudden, severe pain in the face or head ? Double vision or difficulty seeing ? Confusion or difficulty thinking clearly ? Swelling or redness around one or both eyes ? Stiff neck, shortness of breath ACUTE SINUSITIS TREATMENT Initial treatment of a sinus infection aims to relieve sympt oms since almost everyone will improve within the first seven to 10 da ys. Experts recommend avoiding antibiotics during this time unless there is clear evidence of a severe bacterial infection. Initial treatment Pain relief ? Non-prescription pain medications, such as jorge taminophen (eg, Tylenol?) or ibuprofen (eg, Motrin?, Advil?) are recomm ended for pain. Nasal irrigation and saline sprays ? Rinsing the nose with a salt-water (saline) solution is called nasal irrigation or nasal lavage . Saline is also available in a standard nasal spray, although this is n ot as effective as using larger amounts of water in an irrigation. Nasal irrigation is particularly useful for treating drainag e down the back of the throat, sneezing, nasal dryness, and congestion. The treatment helps by rinsing out allergens and irritants from the nose. Saline rinses also clean the nasal lining and can be used before applying sprays containing medications, to get a better effect from the medi cation. Nasal lavage with warmed saline can be performed as needed, once per day, or twice daily for increased symptoms. Nasal lavage carries few risks when performed correctly. Saline nasal sprays and irrigation kits can be purchased [id number]. Saline mixes can also be purchas ed or patients can make their own solution. A variety of devices, including bulb syringes, Neti pots, an d bottle sprayers, may be used to perform nasal lavage; instructions for nasal lavage are provided in the table. At least 200 mL (about 3/4 cup) of fluid is recommended for each nostril. Nasal decongestants ? Nasal decongestant sprays, including o xymetazoline (Afrin?) and phenylephrine (Aki-synephrine?) can be used to temporarily treat congestion. However, these sprays should not be used f or more than two to three days due to the risk of rebound congestion (whe n the nose is congested constantly unless the medication is used repeatedl y). Other treatments ? Other treatments for congestion, such as oral antihistamines (such as diphenhydramine/Benadryl?) or zinc s upplements are not proven to improve symptoms of sinusitis and can have unw anted side effects. Medications to thin secretions (such as guaifenesin ) may help to clear mucus. Secondline treatment ? If symptoms have not improved in jer n to ten days, you should arrange for medical evaluation. You may need furt her treatment. Nasal glucocorticoids ? Nasal glucocorticoids (steroids deli chepe by a nasal spray) can help to reduce swelling inside the nose, us ually within two to three days. These drugs have few side effects and felix matically relieve symptoms in most people. There are a number of nasal glucocorticoids available by pre scription. These drugs are all effective, but differ in how frequently they must be used and how much they cost. You may need to use a nasal decongestant for a few days befo re starting a nasal glucocorticoid to reduce nasal swelling; this will all ow the nasal glucocorticoid to reach more areas of the nasal passages Do I need an antibiotic? ? If bothersome symptoms of sinusit is persist for 10 or more days, it is possible that you have bacterial sinu sitis. The need for antibiotics depends upon the severity of your sympt oms. Mild symptoms ? There are two possible treatment options if you have mild sinusitis symptoms: treat with antibiotics or continue to wa tch and wait for one week. Watching and waiting is a reasonable option because up to 75 percent of people with bacterial sinusitis improve within one month wit hout antibiotics. During the watch and wait period, treatments to improve symptoms are recommended. If symptoms worsen or do not improve after watching and wait ing, treatment with an antibiotic is usually recommended. Treatments to rel ieve symptoms are recommended while using antibiotics. Moderate or severe symptoms ? Most healthcare providers will prescribe an antibiotic for moderate to severe symptoms (temperature >38. 3? C or 101? F and/or severe pain that interferes with usual activities). Treatments to relieve symptoms are also recommended during a ntibiotic treatment. One of the least expensive and most effective antibiotics fo r sinusitis is amoxicillin. An alternate antibiotic will be prescribed if y ou are allergic to penicillin. Regardless of which antibiotic is pr escribed, it is important to follow the dosing instructions carefully and to finish the entire course of treatment. Taking the medication less often than prescribed or stopping the medication early can lead to comp lications, such as a recurrent infection. What if I do not improve with treatment? ? If you do not imp rove or worsen after a course of antibiotics, you should be re-examined. In some cases, symptoms of sinusitis improve but then recur. This is usually because the infection was not completely eliminated by the antibiotic. An alternate antibiotic, extended antibiotic sukhwinder atment, and/or further testing may be recommended, depending upon your monique vidual situation. Prescriptions ordered this encounter Disp Refills Start End FLUTICASONE PROPIONATE 50 MCG/ACTUAT* 1 Slava* 0 04/30/2019 Route: EACH NOSTRIL Sig: Use 2 Sprays in each nostril once daily. Rinse mouth af ter use. PREDNISONE 10 MG TABLET 21 t* 0 04/30/2019 05/09/2019 Sig: Take 4 tabs daily for 3 days, then 2 tabs daily for 3 days, then 1 tab daily for 3 days with food. [id number]-[id number] 2* 118 * 0 04/30/2019 Route: ORAL Sig: Take 5 mL by mouth four times daily as needed. MUCINEX 600 MG TABLET, EXTENDED RELE* 20 t* 0 04/30/2019 Route: ORAL Sig: Take 1 tablet by mouth twice daily for 10 days. Disposition: Return if symptoms worsen or fail to improve. Follow-up and Disposition History Recorded Encounter Status:Closed by SAMANTHA STAFFORD on 04/30/19 progress on 2018-12 PROGRESS HNO ID: [id number] Normal 01-10-2019 [facility] Author: Janine Harden RN Espitia ([id number]) Service: ? Author Type: Registered Nurse Type: Progress Notes Filed: 01/12/2019 1:43 PM Note Text: [facility] [employer] AND [facility] IRB#: [id number] Study name: Randomized trial of Retropubic versus Single-inc ision Mid-Urethral Sling (Altis) for Concomitant Management of Str ess Urinary Incontinence during [place] Tissue Vaginal Repair PI: Dr. Cassie Foss [facility] [employer] AND [facility] IRB#: [id number] Study name: Randomized trial of Retropubic versus Single-inc ision Mid-Urethral Sling (Altis) for Concomitant Management of Str ess Urinary Incontinence during [place] Tissue Vaginal Repair PI: Dr. Cassie Foss 6 week visit done per protocol Patient here for her [address] Frank Macias. A/E: no Questionnaires: Pt completed PFDI-20 and PGI-S POP-Q: Aa: -1.0 Ba:-1.0 C: -8.0 Gh: 3.5 pb: 5.0 tvl: 8.0 Ap: -3.0 Bp: -3.0 D: na PVR: 42 ml within 15 minutes after voiding 220 ml Done by : Scan Parking pass provided and patient was informed that her next research visit will be the 6 month phone call. Janine Harden RN Research Nurse Coordinator PROGRESS HNO ID: [id number] Normal 01-10-2019 [facility] Author: Frank Espitia ([id number]) Service: ? Author Type: Physician Type: Progress Notes Filed: 01/10/2019 11:29 AM Note Text: Diane Tracy is a 43 year old female S/P Gisela procedure w ho presents for a 8 Week post-op check s/p 11/17/18 SURGERY/PROCEDURE(S): Right sacrospinous ligament colpopexy, posterior colporrhaph y with perineorrhaphy, sling per study protocol, cystourethroscopy. Post-op complications: no Bleeding: no Pain: yes stabbing vaginal pain with prolonged standing and driving If you had pain related to your prolapse before surgery, has your pain resolved? Not Applicable Abnormal vaginal discharge: no Urinary incontinence: yes a little bit, once in a while, bu t not like before Voiding dysfunction: no Urinary frequency: yes every couple of hours' Urinary urgency: no Prolapse symptoms: no Defecatory dysfunction: yes diarrhea continues and painful t o have a BM; this is related to her Gisela procedure Fecal incontinence: no Overall, how satisfied were you with your postoperative pain medication? Satisfied With regard to your expectations before surgery, did you hav e the amount of pain you expected, more pain, or less pain? Much more pain than I expected Was the preoperative teaching you had about pain expectation s helpful? Yes Were the discharge instructions you received about pain medi cations helpful? Yes Appointment Scheduler offered: Patient declines. Heide Griffith RN January 10, 2019 11:03 AM OBJECTIVE: BP 122/82 Ht 5' 4 (1.63m) Wt 212 lb (96.2kg) BMI 36.3 7 kg/(m2). General: Well appearing, alert, in no acute distress, well-h ydrated, well nourished. Abdomen: Normal abdominal exam Pelvic: Ext. 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 Education and counseling provided regarding lifting restrict ions Patient acknowledged understanding. Timed voids and Kegels She is not interested in medications at this time Frank Macias MD cnov on 2019-01-10 CNOV Office Visit ([facility]) Normal 01-11-20 19 [facility] DIANE TRACY I ([id number]) 1975 F [facility] Time Provider Department ([id number]) 01/10/19 11:15 AM FRANK MACIAS During your visit today, we recorded the following informati on about you: Blood pressure Weight Height 122/82 96.2 kg 1.626 m Frank Macias MD 01/10/2019 11:29 AM Signed Diane Tracy is a 43 year o ld female S/P Gisela procedure who presents for a 8 Week post-op check s/p 11/17/18 SURGERY/PROCEDURE(S): Right sacrospinous ligament colpopexy, posterior colporrhaph y with perineorrhaphy, sling per study protocol, cystourethroscopy. Post-op complications: no Bleeding: no Pain: yes stabbing vaginal pain with prolonged standing and driving If you had pain related to your prolapse before surgery, has your pain resolved? Not Applicable Abnormal vaginal discharge: no Urinary incontinence: yes a little bit, once in a while, but not like before Voiding dysfunction: no Urinary frequency: yes every couple of hours' Urinary urgency: no Prolapse symptoms: no Defecatory dysfunction: yes diarrhea continues a nd painful to have a BM; this is related to her Gisela procedure Fecal incontinence: no Overall, how satisfied were you with your postoperative pain medication? Satisfied With regard to your expectations before surgery, did you h ave the amount of pain you expected, more pain, or less pain? Much more pain than I expected Was the preoperative teaching you had about pain expectation s helpful? Yes Were the discharge instructions you received about stephanie n medications helpful? Yes Appointment Scheduler offered: Patient declines. Heide Griffith RN January 10, 2019 11:03 AM OBJECTIVE: BP 122/82 Ht 5' 4 (1.63m) Wt 212 lb (96.2kg) BMI 36.3 7 kg/(m2). General: Well appearing, alert, in no acute distress, well-h ydrated, well nourished. Abdomen: Normal abdominal exam Pelvic: Ext. 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 Education and counseling provided regarding lifting restrict ions Patient acknowledged understanding. Timed voids and Kegels She is not interested in medications at this time Frank Macias MD Referring Provider: FRANK MACIAS [[id number]] Allergies As of Date: 01/10/2019 Noted Allergy Reaction ASPIRIN 11/15/2018 10 - Anaphylaxis PENICILLINS 07/31/2016 4 - Hives 11 - Vomiting SULFA (SULFONAMIDE ANTIBIOTICS) 07/31/2016 2 - Rash 4 - Hives VICODIN (HYDROCODONE-ACETAMINOPHE*07/31/2016 7 - Swelling Date Reviewed: 01/10/2019 Reviewed by: Heide Griffith RN - Fully Assessed Reason for Visit: Post-Op Visit [1236] Primary Visit Diagnosis:Post-operative state [Z98.890] Other Visit Diagnosis:ESTEPHANIA (stress urinary incontinence, fema le) [N39.3] Order(s):UA DIP, URINE (POC) [1399200] Order #: [id number] . #:[id number] Prescriptions as of 01/10/2019 Sig: FLUTICASONE FUROATE 100 MCG/A* Inhale 1 Puff as instructed o * ALBUTEROL SULFATE HFA 90 MCG/* Inhale 2 Puffs as instructed * COLESTIPOL ORAL Take 1 g by mouth four times * VENLAFAXINE ER 75 MG CAPSULE,* Take 75 mg by mouth once aquiles * SYNTHROID 112 MCG TABLET Take 112 mcg by mouth once da* CHOLECALCIFEROL (VITAMIN D3) * Take 6 tablets by mouth once * CYCLOBENZAPRINE 5 MG TABLET Take 1 tablet by mouth three * Patient not taking: Reported on 01/10/2019 GABAPENTIN 300 MG CAPSULE Take 1 capsule by mouth every* DOCUSATE SODIUM 100 MG CAPSULE Take 1 capsule by mouth twice * Patient not taking: Reported on 01/10/2019 POLYETHYLENE GLYCOL 3350 17 G* Take 17 g by mouth once daily * Patient not taking: Reported on 01/10/2019 ACETAMINOPHEN 500 MG TABLET Take 2 tablets by mouth every* IBUPROFEN 600 MG TABLET Take 1 tablet by mouth every * Patient not taking: Reported on 01/10/2019 LIDOCAINE-ALOE VERA 0.5 % TOP* Apply 1 application to affect * Patient not taking: Reported on 10/25/2018 CYCLOBENZAPRINE 5 MG TABLET Problem List As Of Date 01/10/2019 Noted Resolved Hypothyroid [E03.9] ESTEPHANIA (stress urinary incontinence, female) [N39.*INVALID FOR* Prolapse of vaginal lazo [N81.10] INVALID FOR* Rectocele [N81.6] INVALID FOR* Outlet dysfunction constipation [K59.02] INVALID FOR* Fibromyalgia [M79.7] INVALID FOR* Encounter Status:Closed by FRANK MACIAS MD on 01/10/19 cnnurse on CNNURSE Nurse Visit (ANTHONY) [place] 9 [facility] DIANE TRACY I ([id number]) 1975 [facility] Date Time Provider Department ([id number]) 01/10/19 JANINE HARDEN) ANTHONY During your visit today, we recorded the following informati on about you: Janine Harden RN, RN 01/12/2019 1:43 PM Addendum [facility] [employer] AND [facility] IRB#: [id number] Study name: Randomized trial of Retropub ic versus Single-incision Mid-Urethral Sling (Altis) for Concomitant Management of Stress Urinary Incontinence during [place] Tissue Vaginal Repair PI: Dr. Cassie Fsos [facility] [employer] AND [facility] IRB#: [id number] Study name: Randomized trial of Retropub ic versus Single-incision Mid-Urethral Sling (Altis) for Concomitant Management of Stress Urinary Incontinence during [place] Tissue Vaginal Repair PI: Dr. Cassie Ferrando 6 week visit done per protocol Patient here for her [address] Frank Macias. A/E: no Questionnaires: Pt completed PFDI-20 and PGI-S POP-Q: Aa: -1.0 Ba:-1.0 C: -8.0 Gh: 3.5 pb: 5.0 tvl: 8.0 Ap: -3.0 Bp: -3.0 D: na PVR: 42 ml within 15 minutes after voiding 220 ml Done by : Scan Parking pass provided and patient was informed that her ne xt research visit will be the 6 month phone call. Janine Harden RN Research Nurse Coordinator Allergies As of Date: 01/10/2019 Noted Allergy Reaction ASPIRIN 11/15/2018 10 - Anaphylaxis PENICILLINS 07/31/2016 4 - Hives 11 - Vomiting SULFA (SULFONAMIDE ANTIBIOTICS) 07/31/2016 2 - Rash 4 - Hives VICODIN (HYDROCODONE-ACETAMINOPHE*07/31/2016 7 - Swelling Date Reviewed: 01/10/2019 Reviewed by: Heide Griffith RN - Fully Assessed Reason for Visit: Research F/U [778] Primary Visit Diagnosis:Research subject [Z00.6] Prescriptions as of 01/10/2019 Sig: CYCLOBENZAPRINE 5 MG TABLET Take 1 tablet by mouth three * Patient not taking: Reported on 01/10/2019 GABAPENTIN 300 MG CAPSULE Take 1 capsule by mouth every* DOCUSATE SODIUM 100 MG CAPSULE Take 1 capsule by mouth twice * Patient not taking: Reported on 01/10/2019 POLYETHYLENE GLYCOL 3350 17 G* Take 17 g by mouth once daily * Patient not taking: Reported on 01/10/2019 ACETAMINOPHEN 500 MG TABLET Take 2 tablets by mouth every* IBUPROFEN 600 MG TABLET Take 1 tablet by mouth every * Patient not taking: Reported on 01/10/2019 FLUTICASONE FUROATE 100 MCG/A* Inhale 1 Puff as instructed o * ALBUTEROL SULFATE HFA 90 MCG/* Inhale 2 Puffs as instructed * LIDOCAINE-ALOE VERA 0.5 % TOP* Apply 1 application to affect * Patient not taking: Reported on 10/25/2018 COLESTIPOL ORAL Take 1 g by mouth four times * CYCLOBENZAPRINE 5 MG TABLET VENLAFAXINE ER 75 MG CAPSULE,* Take 75 mg by mouth once aquiles * SYNTHROID 112 MCG TABLET Take 112 mcg by mouth once da* CHOLECALCIFEROL (VITAMIN D3) * Take 6 tablets by mouth once * Problem List As Of Date 01/10/2019 Noted Resolved Hypothyroid [E03.9] ESTEPHANIA (stress urinary incontinence, female) [N39.*INVALID FOR* Prolapse of vaginal lazo [N81.10] INVALID FOR* Rectocele [N81.6] INVALID FOR* Outlet dysfunction constipation [K59.02] INVALID FOR* Fibromyalgia [M79.7] INVALID FOR* Encounter Status:Closed by JANINE HARDEN on 01/11/19 lab report: urinalysis, complete on 2015-11-17 Urine, bacteria in 0 SEEN None Seen Invalid 11-17-2015 - [place] sediment /hpf Interpretation Code 11-17-2015 [facility] (47607) Urine, epithelial 0-5 SEEN 5-10 Invalid 11-17-2015 - [place] cells in sediment Interpretation Code [facility] (39161) Urine, 5-10 SEEN 0-5 Invalid 11-17-2015 - [place] erythrocytes in Interpretation Code 10-26 [facility] sediment by volume ( 67945) Urine, mucus 0 SEEN <or=2+ Invalid 11-17-2015 - [facility] [facility] presence in Interpretation Code 11-17-19 16 [facility] sediment (31435) WBC (Leukocytes) 0 SEEN 0-5 Invalid 11-17-2015 - [facility] Interpretation Code 11-17-2015 [facility] (26513) lab report: cbc w/diff, automated on 2015-11-17 Absolute Neut 4.2 X10 2.0-7.7 Invalid 11-17-2015 - [place] [facility] 3/UL Interpretation 11-17-2015 [facility] Code (09614) Basophils/100 WBC 0.3 0-1 % Invalid 11-17-2015 - [place] Auto (Bld) Interpretation 11-17-2015 [facility] Code (05898) Eosinophils/100 1.1 0-5 % Invalid 11-17-2015 - [place] leukocytes Interpretation 11-17-2015 [facility] Code (76366) Erythrocyte 11.9 11.6-14.6 % Invalid 11-17-2015 - [place] distribution Interpretation 11-17-2015 [facility] width Auto Ratio Code (44 591) (RBC) Erythrocytes 4.68 4.2-5.4 10*6/u Invalid 11-17-2015 - [facility] [facility] (RBC) L Interpretation 11-17-2015 [facility] Code (38581) Hematocrit (HCT) 40.7 37-47 % Invalid 11-17-2015 - [place] Interpretation 11-17-2015 [facility] Code (56006) Hemoglobin mass 13.5 12.0-15.0 g/dL Invalid 11-17-2015 - [place] conc (Bld) Interpretation 11-17-2015 [facility] Code (33453) Immature 0.300 0.0-0.9 % Invalid 11-17-2015 - [place] granulocytes/100 Interpretation 11-17-19 16 [facility] WBC (Bld) Code (56160) Lymphocytes 2.38 X10 0.83-4.51 Invalid 11-17-2015 - [place] 3/UL Interpretation 11-17-2015 [facility] Code (77663) Lymphocytes/100 32.4 19-41 % Invalid 11-17-2015 - [place] leukocytes Interpretation 11-17-2015 [facility] Code (84794) MCH 28.8 27.0-32.0 pg Invalid 11-17-2015 - [place] Interpretation 11-17-2015 [facility] Code (57503) MCHC mass conc 33.2 G/GL 32-36 Invalid 11-17-2015 - [place] (RBC) Interpretation 11-17-2015 [facility] Code (37562) MCV 87.0 81-99 fL Invalid 11-17-2015 - [facility] Interpretation 11-17-2015 [facility] Code (42473) Monocytes/100 8.7 0-10 % Invalid 11-17-2015 - [place] leukocytes Interpretation 11-17-2015 [facility] Code (09582) Neutrophils/100 57.2 47-70 % Invalid 11-17-2015 - [place] WBC Auto (Bld) Interpretation 11-17-2015 [facility] Code (81294) Platelets 270 150-450 10*3/m Invalid 11-17-2015 - [place] m3 Interpretation 11-17-2015 [facility] Code (78335) PMV by [place] 10.1 6.2-12.0 fL Invalid 11-17-2015 - [facility] Interpretation 11-17-2015 [facility] Code (44591) RDW SD 38.0 35.1-43.9 fL Invalid 11-17-2015 - [facility] Interpretation 11-17-2015 [facility] Code (59872) WBC (Leukocytes) 7.4 4.4-11.0 10*9/L Invalid 11-17-2015 - [place] Interpretation 11-17-2015 [facility] Code (26856) lab report: basic metabolic profile (bmp ) on 2015-11-17 Anion gap 7 5-15 mmol/L Invalid 11-17-2015 - [place] Interpretation Code 11-17-2015 [facility] (25489) BUN/Creatinine 14.1 RATIO 10-20 Invalid 11-17-2015 - [place] Ratio Interpretation Code 11-17-2015 [facility] (46339) Calcium 8.9 8.5-10.1 mg/dL Invalid 11-17-2015 - [facility] Interpretation Code 11-17-2015 [facility] (46194) Chloride 104 98-107 mmol/L Invalid 11-17-2015 - [place] Interpretation Code 11-17-2015 [facility] (44708) CO2 28.0 21.0-32.0 mmol/L Invalid 11-17-2015 - [place] Interpretation Code 11-17-2015 [facility] (98929) Creatinine 0.64 0.55-1.20 mg/dL Invalid 11-17-2015 - [place] Interpretation Code 11-17-2015 [facility] (86817) Creatinine 100.90 mL/min Invalid 11-17-2015 - [place] Interpretation Code 11-17-2015 [facility] (25646) eGFR 109 >60 mL/min Invalid 11-17-2015 - [place] (non-black) Interpretation Code 11-17-19 16 [facility] (46861) eGFR 132 >60 mL/min Invalid 11-17-2015 - [place] (non-black) Interpretation Code 11-17-19 16 [facility] (35282) Glucose mass 94 70-110 mg/dL Invalid 11-17-2015 - [facility] [facility] conc Interpretation Code 11-17-2015 [facility] (47657) Potassium molar 3.6 3.5-5.1 mmol/L Invalid 11-17-2015 - [place] Interpretation Code 11-17-2015 [facility] (96226) Sodium 139 136-145 mmol/L Invalid 11-17-2015 - [place] Interpretation Code 11-17-2015 [facility] (17753) Urea nitrogen 9 7-18 mg/dL Invalid 11-17-2015 - [place] Interpretation Code 11-17-2015 [facility] (07912) lab report: (p) urinalysis, complete on 2015-11-17 Bilirubin Ql Negative Negative Invalid 11-17-2015 - [place] [facility] (U) Interpretation 11-17-2015 [facility] Code (15293) NITRITE UR Negative Negative Invalid 11-17-2015 - [place] Interpretation 11-17-2015 [facility] Code (43306) OCCULT 150 Negative High 11-17-2015 - [place] BLOOD-UR 11-17-2015 [facility] up (17849) specific 1.025 1.002-1.030 Invalid 11-17-2015 - [place] gravity, urine Interpretation 11-17-2015 [facility] Code (97947) Urine, clarity Clear Clear Invalid 11-17-2015 - [place] Interpretation 11-17-2015 [facility] Code (53638) Urine, color Yellow Yellow Invalid 11-17-2015 - [facility] [facility] Interpretation 11-17-2015 [facility] Code (96153) Urine, glucose Normal mg/dl Normal Invalid 11-17-2015 - [place] presence Interpretation 11-17-2015 [facility] Code (99590) Urine, ketones Negative Negative Invalid 11-17-2015 - [place] presence Interpretation 11-17-2015 [facility] Code (30655) Urine, Negative Negative Invalid 11-17-2015 - [place] leukocyte Interpretation 11-17-2015 [facility] esterase Code (39938) presence Urine, pH 5.0 5.0 - 8.0 [pH] Invalid 11-17-2015 - [facility] Interpretation 11-17-2015 [facility] Code (89782) Urine, protein Negative Negative mg/d Invalid 11-17-2015 - [place] L Interpretation 11-17-2015 [facility] Code (52763) UROBILI Normal mg/dl Normal Invalid 11-17-2015 - [facility] [facility] Interpretation 11-17-2015 [facility] Code (31378) lab report: thyroid stim hormone (tsh) on 2015-11-11 Thyroid stimulating < 0.01 uIU/mL 0.358-3.74 Low 11-10 - [place] [facility] hormone (TSH) 11-11-2015 Group (87826) lab report: erythrocyte sed rate on 2015-11-11 Erythrocyte 8 0-20 mm/h Invalid 11-11-2015 - [place] [facility] sedimentation rate Interpretation Code 0 11-11-2015 Group (77703) lab report: comprehensive metabolic prof il on 2015-11-11 Alanine 21 12-78 U/L Invalid 11-11-2015 - [place] aminotransferase Interpretation 11-11-19 16 [facility] (ALT) Code Group (38356) Albumin 3.7 3.4-5.0 g/dL Invalid 11-11-2015 - [facility] Interpretation 11-11-2015 Hear t Code Group (72576) Albumin/Globulin 1.2 RATIO 0.9-2.4 {ratio} Invalid 11-11-2015 - [facility] Ratio Interpretation 11-11-2015 [facility] ([id number]) Alkaline phosphatase 63 50-136 U/L Invalid - [facility] (ALP) Interpretation 11-11-2015 [facility] ([id number]) Aspartate 19 15-37 U/L Invalid 11-11-2015 - [facility] aminotransferase Interpretation 11-11-19 16 [facility] (AST) Code Group ([id number]) Bilirubin (total) 0.20 0.20-1.00 mg/dL Invalid 11-11-2015 - [facility] Interpretation 11-11-2015 [facility] ([id number]) Globulin 3.2 2.3-3.5 g/dL Invalid 11-11-2015 - [facility] Interpretation 11-11-2015 [facility] ([id number]) Protein 6.9 6.4-8.2 g/dL Invalid 11-11-2015 - [facility] Interpretation 11-11-2015 [facility] ([id number]) office visit: pain on 2015-09-10 Documentation of Done Invalid 09-10-2015 - [facility] current medications Interpretation Code 09-10-2015 Group ([id number]) (procedure) Tobacco smoking Never Invalid 09-10-2015 - [facility] status NHIS Interpretation Code 09-10-19 16 Group ([id number]) Tobacco use CPHS Never smoker Invalid 09-10-2015 - [facility] Interpretation Code 09-10-2015 Group ([id number]) lab report: antinuclear antibodies direc t on 2015-08-24 ULISES Titer Negative Negative Invalid Interpretation 016 - [facility] Code 08-24-2015 Group ([id number]) lab report: rheumatoid factor on 2015-08-22 rheumatoid factor < 10.0 <15 Invalid Interpretation 08-22-2015 - [facility] Code 08-22-2015 Group ([id number]) lab report: crp on 2015-08-22 C reactive 0.388 Units converted. mg/dL High 08-22-2015 - [facility] protein (CRP) See lab report for 016 Group ([id number]) original value. lab report: t4 free direct on 2015-05-09 Thyroxine (T4) free 2.00 0.76-1.46 ng/dL High 05-09-2015 - [facility] 05-09-2015 Group ([id number]) lab report: t3 total - triiodothyronine on 2015-05-09 T3 Total 1.52 0.6-1.81 ng/mL Invalid Interpretation 016 - [facility] Code 05-09-2015 Group ([id number]) office visit: uri on 2015-03-14 Smoking cessation yes Invalid Interpretation 03-14-2015 - [facility] education Code 03-14-2015 Group ([id number]) (procedure) lab report: vitamin d,25 hydroxy on 2015-02-21 Vitamin D 25-OH 18.1 ng/mL Invalid Interpretation 1 - [facility] Code 02-21-2015 Group ([id number]) lab report: vitamin b12 on 2015-02-21 Cobalamins 340 211-911 pg/mL Invalid 02-21-2015 - [facility] (Vitamin B12) Interpretation Code 2014 Group ([id number]) lab report: iron on 2015-02-21 Iron 128 50-170 ug/dL Invalid Interpretation 015 - [facility] Code 02-21-2015 Group ([id number]) lab report: ferritin on 2015-02-21 Ferritin 94 8-252 ng/mL Invalid Interpretation 015 - [facility] Code 02-21-2015 Group ([id number]) Vital Signs Vital Sign Description Value / Unit Date Location The following section is limited to 5 en tries per type and includes entries from the following time range: 20150910 - [id number] 6. BMI (Body Mass Index) 32.94 kg/m2 09-10-2015 - 09-10-2015 [facility] ([id number]) Body Temperature 97.7 [degF] 09-10-2015 - 09-10-2015 [facility] ([id number]) BP Diastolic 76 mm[Hg] 09-10-2015 - 09-10-2015 [facility] ([id number]) BP Systolic 118 mm[Hg] 09-10-2015 - 09-10-2015 [facility] ([id number]) BSA (Body Surface Area) 1.88 m2 09-10-2015 - 09-10-2015 [facility] ([id number]) Height 160.02 cm 03-14-2015 - 03-14-2015 [facility] ([id number]) Pulse (Heart Rate) 83 /min 09-10-2015 - 09-10-2015 [facility] ([id number]) Respiratory Rate 18 /min 09-10-2015 - 09-10-2015 [facility] ([id number]) Weight 84.37 kg 09-10-2015 - 09-10-2015 [facility] ([id number]) Encounters Date Type Reason Provider Location 12-19-2014 - Ambulatory Diarrhea YAZAN WALKER Facil ity:[facility] 12-19-2014 YAZAN WALKER Hospi nikolay - Live NONE NONE NONE NONE Procedures Procedure Name Date Provider Location *ULISES 08-22-2015 - Charlene Lai [place] [facility] 08-27-2015 PA-[facility] ([id number]) C reactive protein 08-22-2015 - Charlene Lai [facility] [Mass/volume] in Serum or 08-27-2015 PA-C ([id number] ) Plasma by High sensitivity method Erythrocyte sedimentation 08-22-2015 - Charlene Lai [place] [facility] rate 08-27-2015 PA-C ([id number]) Rheumatoid factor 08-22-2015 - Charlene Lai [place] [facility] [Units/volume] in Serum or 08-23-2015 PA-C ([id number] 1) Plasma Thyrotropin [Units/volume] in 08-22-2015 - Charlene Lai [place] [facility] Serum or Plasma 08-23-2015 PA-C ([id number]) Thyrotropin [Units/volume] in 04-23-2015 - Bette A Malys, DO [facility] Serum or Plasma 05-10-2015 ([id number]) Thyroxine (T4) free 04-23-2015 - Bette A Malys, DO [facility] [Mass/volume] in Serum or 05-10-2015 ([id number] ) Plasma Triiodothyronine (T3) 04-23-2015 - Bette A Malys, DO [facility] [Mass/volume] in Serum or 05-10-2015 ([id number] ) Plasma *CBC with Differential 02-21-2015 A Malys, DO [facility] 02-22-2015 ([id number]) *CMP Complete Metabolic Panel 02-21-2015 A Robertys, DO [facility] 02-22-2015 ([id number]) 25-Hydroxyvitamin 02-21-2015 - Bette A Malys, DO [facility] D2+25-Hydroxyvitamin D3 02-23-2015 ([id number]) [Mass/volume] in Serum or Plasma Cobalamin (Vitamin B12) 02-21-2015 A Malys, DO [facility] [Mass/volume] in Serum or 02-23-2015 ([id number] ) Plasma Ferritin [Mass/volume] in 02-21-2015 - A Malys, DO [facility] Serum or Plasma 02-22-2015 ([id number]) Iron [Mass/volume] in Serum 02-21-2015 - A Malys, DO [facility] or Plasma 02-22-2015 ([id number]) Thyrotropin [Units/volume] in 02-21-2015 - Bette A Malys, DO [facility] Serum or Plasma 02-23-2015 ([id number]) Thyroxine (T4) free 02-21-2015 - A Malys, DO [facility] [Mass/volume] in Serum or 02-22-2015 ([id number] ) Plasma Triiodothyronine (T3) 02-21-2015 - Bette A Malys, DO [facility] [Mass/volume] in Serum or 02-22-2015 ([id number] ) Plasma Plan of Treatment Plan Description Date Location Appointment Appointment 04-08-2017 - [facility] 04-08-2017 ([id number]) Endocrinology Referral Endocrinology Referral 11-01-2015 - [facility] Oma () ANASTACIA Burnette, Oma () ANASTACIA Burnette, 11-01-2015 ([id number]) [address], [address], [address], [facility] [address], [facility], Endocrinology Group, [place], [address] [place], [address] *TSH *TSH 10-04-2015 - [facility] 08-23-2015 ([id number]) *ULISES *ULISES 08-22-2015 - [facility] 08-27-2015 ([id number]) *CRP - C-Reative Protein *CRP - C-Reative Protein 08-22-2015 - [facility] 08-27-2015 ([id number]) *Sedimentation Rate (ESR) *Sedimentation Rate (ESR) 08-22-2015 - [facility] 08-27-2015 ([id number]) *RA Rheumatoid Factor - *RA Rheumatoid Factor - 08-22-2015 - [facility] [place] 08-23-2015 ([id number]) Rheumatology Referral no information [facility]-22-2015 [facility] Michaelle Villegas MD, 3727 09-12-2015 ([id number]) [facility] [address], [place], [address] *TSH *TSH 08-22-2015 - [facility] 08-23-2015 ([id number]) X-Ray, Hip Unilateral X-Ray, Hip Unilateral 08-22-2015 - [facility] 08-22-2015 ([id number]) *TSH *TSH 05-10-2015 - [facility] 05-10-2015 ([id number]) *T4 free *T4 free 05-10-2015 - [facility] 05-10-2015 ([id number]) *T3-Total *T3-Total 05-10-2015 - [facility] 05-10-2015 ([id number]) *TSH *TSH 04-23-2015 - [facility] 05-10-2015 ([id number]) *T4 free *T4 free 04-23-2015 - [facility] 05-10-2015 ([id number]) *T3-Total *T3-Total 04-23-2015 - [facility] 05-10-2015 ([id number]) *CBC with Differential *CBC with Differential 02-21-2015 - [facility] 02-22-2015 ([id number]) *CMP Complete Metabolic *CMP Complete Metabolic 02-21-2015 - [facility] Panel Panel 02-22-2015 ([id number]) *Vitamin D (Calciferol) *Vitamin D (Calciferol) 02-21-2015 - [facility] 02-23-2015 ([id number]) *B-12 *B-12 02-21-2015 - [facility] 02-23-2015 ([id number]) *Ferritin *Ferritin 02-21-2015 - [facility] 02-22-2015 ([id number]) *Iron *Iron 02-21-2015 - [facility] 02-22-2015 ([id number]) *TSH *TSH 02-21-2015 - [facility] 02-23-2015 ([id number]) *T4 free *T4 free 02-21-2015 - [facility] 02-22-2015 ([id number]) *T3-Total *T3-Total 02-21-2015 - [facility] 02-22-2015 ([id number]) Payers Payer Name Policy Number [facility] [id number] [facility] ([id number]) The following information is from the original human readable contentNo Payer Records Found Summary Purpose Family History No Family History Records FoundNo Family History Records Found Advance Directives No Advanced Directives Records FoundNo Advanced Directives Records Found Additional Source Comments FOR RECORDS PERTAINING TO PATIENTS WHO ARE OR HAVE BEEN ENROLLED IN A CHEMICAL DEPENDENCY/SUBSTANCE ABUSE PROGRAM, SOME INFORMATION MAY BE OMITTED. This clinical summary was aggregated from multiple sources. Caution should be exercised in using it in the provision of clinical care. This summary normalizes information from multiple sources, and as a consequence, information in this document may materially changethe coding, format and clinical context of patient data. In addition, data may be omittedin some cases. CLINICAL DECISIONS SHOULD BE BASED ON THE PRIMARY CLINICAL RECORDS. [facility] provides no warranty or guarantee of the accuracy or completeness of information in this document. UNRECOGNIZED CONTENT PROVIDED BELOW FOR UNRECOGNIZED SECTION INFORMATION SOURCE DATE CREATED AUTHOR AUTHOR'S ORGANIZATIO N [facility] DATE CREATED AUTHOR AUTHOR'S ORGANIZATIO N 12/17/2019 [facility] Artie tran
== END ==
PROVIDERS: PCP Family Medicine; Visit Provider Internal Medicine Nephrology
DX: E11.9 Type 2 diabetes mellitus without complications (principal)
CPT/HCPCS: 82043; 82570

== ENCOUNTER → 2019-10-17 08:58 | Outpatient (CLI) | payer OTHER, MEDICAID, SELFPAY ==
[2019-08-10 11:12] VITALS: BMI 38.6
[2019-10-17 10:15] LABS: Cholesterol 144 mg/dL (200); High Density Lipoprotein 47 mg/dL; Triglycerides 153 mg/dL; Very Low Density Lipoprotein 31 mg/dL (5-40)
== END ==
PROVIDERS: PCP Family Medicine; Referring Provider Internal Medicine Cardiovascular Disease; Visit Provider Internal Medicine Cardiovascular Disease
DX: E78.00 Pure hypercholesterolemia, unspecified (principal)
CPT/HCPCS: 36415; 80061

== ENCOUNTER → 2019-10-17 09:47 | Outpatient (CLI) | payer OTHER, MEDICAID, SELFPAY ==
[2019-10-17 09:43] VITALS: BMI 38.6
--- NOTE | 2019-10-17 09:47 | RAD_ITS ---
STUDY: X-RAY - RIGHT KNEE REASON FOR EXAM: Female, 44 years old. KNEE PAIN, NO INJURY TECHNIQUE: 4 view(s) of the knee. COMPARISON: None. FINDINGS: Normal visualized distal femur. Normal visualized proximal tibia and fibula. Normal proximal tibiofibular articulation. Normal medial femorotibial compartment. Normal lateral femorotibial compartment. Normal patellofemoral articulation. The soft tissue structures are unremarkable. RAD/Knee 4 or More Views IMPRESSION: Normal x-ray examination of the knee. Electronically Signed: Jaspal Boyd MD at 10:08 EDT , Service support ,
== END ==
PROVIDERS: PCP Family Medicine; Referring Provider Orthopaedic Surgery; Visit Provider Orthopaedic Surgery
DX: M25.561 Pain in right knee (principal)
CPT/HCPCS: 73564

== ENCOUNTER 2019-12-01 09:45 | Outpatient (RCR) | payer OTHER, MEDICAID, SELFPAY ==
[2019-08-10 11:12] VITALS: BMI 38.6
[2019-10-17 09:43] VITALS: BMI 38.6
== END 2019-12-26 23:59 ==
LOC: DC 09:45
PROVIDERS: PCP Family Medicine; Visit Provider Family Medicine
DX: Z71.3 Dietary counseling and surveillance (principal); E11.9 Type 2 diabetes mellitus without complications

== ENCOUNTER 2020-01-07 18:13 | Emergency (ER) | payer OTHER, MEDICAID, SELFPAY ==
[2019-10-17 09:43] VITALS: BMI 38.6
[2020-01-07 18:16] VITALS: BP 156/85; PULSE 87; RESP 16; TEMP 36.6; O2SAT 99; BMI 36.8
--- NOTE | 2020-01-07 18:42 | RAD_ITS ---
STUDY: X-RAY - RIGHT FOOT CLINICAL: Female, 44 years old. RIGHT FOOT PAIN X 1 DAY. TECHNIQUE: 3 view(s) of the foot. COMPARISON: None. FINDINGS: Normal talus, calcaneus, and tarsal bones. Normal visualized subtalar, talonavicular, calcaneocuboid, tarsal and tarsometatarsal articulations. Normal metatarsi. Normal metatarsophalangeal joint of the great toe. Normal tibial and fibular sesamoid bones. Normal interphalangeal joint of the great toe. Normal phalanges of the great toe. Normal second through fifth metatarsophalangeal joints. Normal interphalangeal joints and phalanges of the lesser toes. The soft tissue structures are unremarkable. There is no demonstrated fracture. RAD/Foot min 3 Views IMPRESSION: Normal x-ray examination of the foot. Electronically Signed: Leonides Richter MD at 19:05 EDT , Service support ,
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
--- NOTE | 2020-01-07 18:57 | ED.DEP ---
ED Disposition - Plan for ED Patient: Disposition: Home or Assisted Living Instructions: ED FOOT CONTUSION Referrals: Bette Reaves [Primary Care Provider] - 1 Week if not improving Additional Instructions: Tylenol or Motrin for pain and swelling. Ice and elevate foot. Your x-rays today did not show any broken bones. Follow-up in 1 to 2 weeks if not improving.
== END 2020-01-07 19:10 | disposition home or self-care (01) ==
LOC: ED 19:08
PROVIDERS: Emergency Provider Emergency Medicine; PCP Family Medicine
DX: S90.31XA Contusion of right foot, initial encounter (principal); Y04.8XXA Assault by other bodily force, initial encounter; Y93.9 Activity, unspecified; Y92.9 Unspecified place or not applicable; Y99.9 Unspecified external cause status; R73.03 Prediabetes; M79.7 Fibromyalgia; M19.90 Unspecified osteoarthritis, unspecified site; Z79.899 Other long term (current) drug therapy
CPT/HCPCS: 73630; 99282

== ENCOUNTER → 2020-02-28 11:22 | Outpatient (CLI) | payer OTHER, MEDICAID, SELFPAY ==
[2019-10-17 09:43] VITALS: BMI 38.6
[2020-02-08 08:27] VITALS: BMI 38.4
[2020-02-28 15:36] LABS: Albumin, Serum 3.7 g/dL (3.2-5.0); BUN 10 mg/dL (7-18); BUN/Creat Ratio 14.6 RATIO (10-20); Calcium,Total 8.9 mg/dL (8.5-10.1); Chloride 104 mmol/L (98-107); Creatinine, Serum 0.68 mg/dL (0.55-1.02); EST Glomerular Filtration Rate 99 mL/min (>60); Est Glom Filt Rate - Afr Amer 120 mL/min (>60); Glucose 78 mg/dL (74-106); Phosphorus 2.4 mg/dL (2.5-4.9); Potassium 3.5 mmol/L (3.5-5.1); Sodium Level 140 mmol/L (136-145)
[2020-02-28 15:39] LABS: Vitamin D,25 Hydroxy 29.1 ng/mL
== END ==
PROVIDERS: PCP Family Medicine; Referring Provider Internal Medicine Nephrology; Visit Provider Internal Medicine Nephrology
DX: I10 Essential (primary) hypertension (principal); E55.9 Vitamin D deficiency, unspecified
CPT/HCPCS: 36415; 80069; 82306

== ENCOUNTER → 2020-03-09 09:25 | Outpatient (CLI) | payer OTHER, MEDICAID, SELFPAY ==
[2020-02-08 08:27] VITALS: BMI 38.4
[2020-03-09 12:56] LABS: AST(SGOT) 20 U/L (15-37); Alanine Aminotransfer ALT/SGPT 33 U/L (13-56); Albumin, Serum 3.5 g/dL (3.2-5.0); Alkaline Phosphatase 81 U/L (45-117); Bilirubin, Direct 0.14 mg/dL (0.00-0.30); Cholesterol 150 mg/dL (200); Globulin 3.5 g/dL (2.2-4.2); High Density Lipoprotein 48 mg/dL; Triglycerides 205 mg/dL; Very Low Density Lipoprotein 41 mg/dL (5-40)
== END ==
PROVIDERS: PCP Family Medicine; Referring Provider Internal Medicine Cardiovascular Disease; Visit Provider Internal Medicine Cardiovascular Disease
DX: I10 Essential (primary) hypertension (principal); E78.00 Pure hypercholesterolemia, unspecified; R53.81 Other malaise; R53.83 Other fatigue
CPT/HCPCS: 36415; 80061; 80076

== ENCOUNTER 2020-04-16 12:34 | Emergency (ER) | payer OTHER, MEDICAID, SELFPAY ==
[2020-03-26 09:08] VITALS: BMI 38.0
[2020-04-16 12:35] VITALS: BP 137/74; PULSE 74; RESP 16; TEMP 36.7; O2SAT 97; BMI 37.0
--- NOTE | 2020-04-16 14:01 | ED.DCSUM_ITS ---
History of Present Illness Chief Complaint: Abd Pain Informant: Patient Onset: Days Context: Gradual Onset Timing: Continuous Current Severity: Moderate Maximum Severity: Moderate Narrative: The patient is a 44-year-old female with medical history significant for hypertension and hyperlipidemia the presents to the emergency department abdominal pain. Patient states she is had waxing and waning pain in her right lower quadrant that has become constant over the past 24 hours. She states that she has been nausea without vomiting. She had some chills, but no documented fever. She states she is had 24 hours of loose, watery diarrhea. There is been no blood in her bowel movements. Patient has surgical history significant for prior cholecystectomy, hysterectomy, and bladder sling. She states she still has her appendix. She denies any urinary symptoms. She denies any recent travel. Prior similar symptoms: No Recent Illness/Hospitalization: No Past Medical History - Allergies and Home Meds Allergies/Adverse Reactions: Allergies aspirin Allergy (Verified 04/16/20 12:38) Unknown hydrocodone bitartrate [From Vicodin] Allergy (Verified 04/16/20 12:38) Swelling Sulfa (Sulfonamide Antibiotics) Allergy (Verified 04/16/20 12:38) Hives duloxetine [From Cymbalta] Adverse Reaction (Severe, Verified 04/16/20 12:38) Hives & dyspnea, to both generaic & Brand meloxicam Adverse Reaction (Intermediate, Verified 04/16/20 12:38) Hives fluticasone [From Flovent Diskus] Adverse Reaction (Verified 04/16/20 12:38) chest shaky made me feel really weird Penicillins Adverse Reaction (Verified 04/16/20 12:38) Upset Stomach Primary Care Physician: Bette Reaves [Primary Care Provider] - Prior records reviewed: Yes Past Medical History: - - Hypertension, hyperlipidemia Surgical History: cholecystectomy, hysterectomy Smoking Status: Never smoker Review of Systems General: Reports: Chills. Denies: Fever, Sweats Eyes: Denies: Visual changes - bilaterally, Diplopia ENT: Denies: Rhinorrhea, Sore throat Cardiovascular: Denies: Chest pain, Palpitations Respiratory: Denies: Dyspnea, Cough, Dyspnea on exertion Gastrointestinal: Reports: Abdominal pain. Denies: Nausea, Vomiting, Diarrhea, Melena, Hematochezia Genitourinary: Denies: Dysuria, Hematuria, Frequency Musculoskeletal: Denies: Back pain, Extremity Pain Skin: Denies: Rash, Wounds Neurological: Denies: Headache, Weakness, Numbness Physical Exam Vital Signs/Narrative: Vital Signs Temp Pulse Resp BP Pulse Ox 04/16/20 12:35 98.1 F 74 16 137/74 H 97 Inital Vital Signs reviewed: Yes General: Well nourished, Well developed, No Acute Distress Head: Normocephalic, Atraumatic Eyes: Perrl, EOMI ENT: Moist mucous membranes, No rhinorrhea Neck: Supple, Nontender Cardiovascular: Regular rate, Regular rhythm, No murmurs Respiratory: No distress, CTA bilaterally, Chest nontender Abdomen: Soft, Nondistended, Normal bowel sounds, Tender. Negative for: Guarding, Rebound tenderness Back: Nontender, Normal Inspection Extremities: Nontender, No edema Skin: Normal color, No rash Neurological: Alert, Oriented x3, Cranial nerves II-XII grossly intact, Normal Strength, Normal Sensation Psychological: Normal affect, Normal Mood Diagnostic/Tx/Re-eval Clinical Impression(s) from Imaging Studies Abdomen/Pelvis CT 04/16/20 15:00 IMPRESSION: 2 cm cyst in the left ovary. Diffuse fatty infiltration of the liver. Electronically Signed: Heladio Nitza, at 15:14 EST , Service support , Abnormal Lab Results 04/16/20 04/16/20 14:20 14:20 WBC 7.2 RBC 4.46 Hgb 14.1 Hct 40.4 MCV 90.6 MCH 31.6 MCHC 34.9 RDW Std Deviation 38.0 RDW Coeff of Chio 11.9 Plt Count 236 MPV 10.6 Immature Gran % (Auto) 0.400 Neut % (Auto) 55.2 Lymph % (Auto) 32.5 Rogers % (Auto) 10.7 H Eos % (Auto) 0.8 Baso % (Auto) 0.4 Absolute Neuts (auto) 4.0 Absolute Lymphs (auto) 2.34 Nucleated RBC % 0 Sodium 140 Potassium 3.7 Chloride 108 H Carbon Dioxide 28.0 Anion Gap 4 L BUN 8 Creatinine 0.59 Estim Creat Clear Calc 105.07 Est GFR (MDRD) Af Amer 142 Est GFR (MDRD) Non-Af 117 BUN/Creatinine Ratio 13.6 Glucose 87 Calcium 8.7 Total Bilirubin 0.50 AST 19 ALT 32 Alkaline Phosphatase 82 Total Protein 7.0 Albumin 3.6 Globulin 3.4 Albumin/Globulin Ratio 1.1 Lipase 62 L - Medical Decision Making The patient presents with pain in her right lower quadrant associated with a increase in diarrhea. She is afebrile. She does have her appendix still. Screening labs are obtained and relatively unremarkable. Patient was given analgesics and antiemetics with improvement of symptoms. Patient underwent CT. This shows no definitive abnormalities. Her appendix is visualized and is normal. With 3 days of symptoms, my suspicion is this is likely viral. Patient was counseled on concerning symptoms and reasons to return. At this point, I do feel that she is safe for outpatient therapy. I will treat her with Bentyl and Zofran. She will be discharged home. Impression 1. Right lower quadrant abdominal pain 2. Diarrhea ED Disposition - Plan for ED Patient: Instructions: ED Abdominal Pain Unkn Cause Fem Prescriptions: Dicyclomine HCl [Bentyl] 20 mg PO TIDAC #20 cap Prescription Printed Ondansetron [Zofran Odt] 4 mg PO Q8H PRN PRN #10 tab PRN Reason: Nausea Prescription Printed Referrals: Bette Reaves [Primary Care Provider] -
[2020-04-16 14:29] LABS: Absolute Lymphocyte Count 2.34 X10^3/uL (0.83-4.51); Basophil# 0.03 X10^3/uL; Basophil% 0.4 % (0-1); Eosinophil# 0.06 X10^3/uL; Eosinophils% 0.8 % (0-5); Hematocrit 40.4 % (37-47); Hemoglobin 14.1 g/dL (12.0-15.0); Lymphocyte # 2.34 X10^3/ul (4.0); Lymphocyte % 32.5 % (19-41); Mean Corp Hgb Conc 34.9 g/dL (32-36); Mean Corpuscular Hgb 31.6 pg (27.0-32.0); Mean Corpuscular Volume 90.6 fL (81-99); Mean Platelet Vol. 10.6 fl (6.2-12.0); Monocyte# 0.77 X10^3/uL; Monocyte% 10.7 % (0-10); NRBC Flagged by Analyzer 0 % (0-5); Neutrophil # 3.98 X10^3/uL (2.7-7.7); Neutrophil % 55.2 % (47-70); Platelet Count 236 K/mm3 (150-450); RBC Distribution Width CV 11.9 % (11.6-14.6); Red Blood Count 4.46 M/mm3 (4.2-5.4); White Blood Count 7.2 K/mm3 (4.4-11.0)
[2020-04-16 14:43] LABS: ALB/GLOB Ratio 1.1 RATIO (0.9-2.4); AST(SGOT) 19 U/L (15-37); Alanine Aminotransfer ALT/SGPT 32 U/L (13-56); Albumin, Serum 3.6 g/dL (3.2-5.0); Alkaline Phosphatase 82 U/L (45-117); Anion Gap 4 (5-15); BUN 8 mg/dL (7-18); BUN/Creat Ratio 13.6 RATIO (10-20); Calcium,Total 8.7 mg/dL (8.5-10.1); Chloride 108 mmol/L (98-107); Creatinine, Serum 0.59 mg/dL (0.55-1.02); EST Glomerular Filtration Rate 117 mL/min (>60); Est Glom Filt Rate - Afr Amer 142 mL/min (>60); Estimated Creatinine Clearance 105.07 ml/min; Globulin 3.4 g/dL (2.2-4.2); Glucose 87 mg/dL (74-106); Lipase 62 U/L (73-393); Potassium 3.7 mmol/L (3.5-5.1); Sodium Level 140 mmol/L (136-145)
--- NOTE | 2020-04-16 15:00 | CT_ITS ---
STUDY: CT ABDOMEN AND PELVIS WITH CONTRAST REASON FOR EXAM: Female, 44 years old. RLQ PAIN X 3 DAYS. Hx of rachel and k''s RADIATION DOSAGE (If Supplied By Facility): CTDIvol = ( 16.46 ) mGy, DLP = ( 1120.68 ) mGycm TECHNIQUE: Transaxial images were obtained from the dome of the diaphragm to the symphysis pubis without oral contrast. IV 100mL Isovue-300 was administered. Sagittal and coronal images were reconstructed. Individualized dose optimization techniques were used for this CT. COMPARISON: Comparison is made with prior study dated 04/21/2018. FINDINGS: The visualized lung bases are unremarkable. The visualized portions of the heart are within normal limits. There is decreased attenuation of the liver consistent with steatosis. There are surgical clips in the gallbladder fossa consistent with a prior cholecystectomy. Normal spleen. Normal pancreas. Normal bilateral adrenal glands. Normal right kidney. Normal left kidney. Normal visualized stomach. Normal small intestine. Normal colon. The appendix is visualized and appears normal. Normal abdominal aorta. Normal inferior vena cava. Normal retroperitoneum. Normal urinary bladder. There is a 2.7 cm cyst in the left ovary. Normal abdominal wall. Normal osseous structures. CT/Abdomen/Pelvis W IV Cont ONLY IMPRESSION: 2 cm cyst in the left ovary. Diffuse fatty infiltration of the liver. Electronically Signed: Heladio Goddard, at 15:14 EST , Service support ,
[2020-04-16] MEDS: Morphine 4 MG/ML Syringe IV (15:46)
[2020-04-16] MEDS: Ondansetron 4 MG/2 ML Vial IV (15:46)
[2020-04-16 15:50] VITALS: BP 134/68; PULSE 67; RESP 16; O2SAT 98
== END 2020-04-16 16:17 | disposition home or self-care (01) ==
LOC: ED 14:16
PROVIDERS: Emergency Provider Emergency Medicine; PCP Family Medicine
DX: R10.31 Right lower quadrant pain (principal); R19.7 Diarrhea, unspecified; I10 Essential (primary) hypertension; E78.5 Hyperlipidemia, unspecified; Z79.899 Other long term (current) drug therapy; Z90.49 Acquired absence of other specified parts of digestive tract
CPT/HCPCS: 74177; 80053; 83690; 85025; 96374; 96375; 99283; Q9967; J2405

== ENCOUNTER → 2020-04-18 13:18 | Outpatient (CLI) | payer OTHER, MEDICAID, SELFPAY ==
[2020-04-16 12:35] VITALS: BMI 37.0
== END ==
PROVIDERS: PCP Family Medicine; Visit Provider Family Medicine
DX: N39.0 Urinary tract infection, site not specified (principal)
CPT/HCPCS: 87086; 87088

== ENCOUNTER → 2020-07-19 13:13 | Outpatient (CLI) | payer OTHER, MEDICAID, SELFPAY ==
[2020-07-19 15:34] LABS: Absolute Lymphocyte Count 2.22 X10^3/uL (0.83-4.51); Absolute Neutrophil Count 2.4 X10^3/uL (2.0-7.7); Basophil# 0.03 X10^3/uL; Basophil% 0.6 % (0-1); Eosinophil# 0.08 X10^3/uL; Eosinophils% 1.5 % (0-5); Hematocrit 41.4 % (37-47); Hemoglobin 13.2 g/dL (12.0-15.0); Lymphocyte # 2.22 X10^3/ul (4.0); Lymphocyte % 41.6 % (19-41); Mean Corp Hgb Conc 31.9 g/dL (32-36); Mean Corpuscular Hgb 29.1 pg (27.0-32.0); Mean Corpuscular Volume 91.2 fL (81-99); Mean Platelet Vol. 11.3 fl (6.2-12.0); Monocyte% 11.2 % (0-10); NRBC Flagged by Analyzer 0 % (0-5); Neutrophil # 2.39 X10^3/uL (2.7-7.7); Neutrophil % 44.7 % (47-70); Platelet Count 319 K/mm3 (150-450); RBC Distribution Width SD 40.5 fl (35.1-43.9); Red Blood Count 4.54 M/mm3 (4.2-5.4); White Blood Count 5.3 K/mm3 (4.4-11.0)
[2020-07-19 15:37] LABS: Erythrocyte Sedimentation Rate 10 mm/hr (0-30)
[2020-07-19 15:49] LABS: AST(SGOT) 23 U/L (15-37); Alanine Aminotransfer ALT/SGPT 37 U/L (13-56); Albumin, Serum 3.5 g/dL (3.2-5.0); Alkaline Phosphatase 88 U/L (45-117); Anion Gap 6 (5-15); BUN 7 mg/dL (7-18); BUN/Creat Ratio 8.4 RATIO (10-20); CRP 4.39 mg/L (0.0-3.0); Calcium,Total 8.5 mg/dL (8.5-10.1); Chloride 107 mmol/L (98-107); Creatinine, Serum 0.84 mg/dL (0.55-1.02); EST Glomerular Filtration Rate 78 mL/min (>60); Est Glom Filt Rate - Afr Amer 95 mL/min (>60); Free T3 2.7 pg/mL (2.18-3.98); Globulin 3.4 g/dL (2.2-4.2); Glucose 126 mg/dL (74-106); Magnesium 2.2 mg/dL (1.6-2.6); Potassium 3.5 mmol/L (3.5-5.1); Protein, Total 6.9 g/dL (6.4-8.2); Sodium Level 140 mmol/L (136-145); T4 Free Direct 1.06 ng/dL (0.76-1.46); Thyroid Stim Hormone (TSH) 0.41 uIU/mL (0.358-3.74)
[2020-07-19 16:15] LABS: Vitamin B12 291 pg/mL (211-911); Vitamin D,25 Hydroxy 17.5 ng/mL
== END ==
PROVIDERS: PCP Family Medicine; Referring Provider Family Medicine; Visit Provider Family Medicine
DX: E11.9 Type 2 diabetes mellitus without complications (principal); R53.83 Other fatigue; M79.7 Fibromyalgia; E03.9 Hypothyroidism, unspecified; Z51.81 Encounter for therapeutic drug level monitoring; E86.9 Volume depletion, unspecified; E63.8 Other specified nutritional deficiencies; M25.50 Pain in unspecified joint
CPT/HCPCS: 36415; 80053; 82306; 82607; 83036; 83735; 84439; 84443; 84481; 85025; 85652; 86140

== ENCOUNTER → 2020-11-21 16:12 | Outpatient (CLI) | payer OTHER, MEDICAID, SELFPAY ==
[2020-10-18 07:41] VITALS: BMI 37.8
--- NOTE | 2020-11-21 16:14 | RAD_ITS ---
STUDY: X-RAY - RIGHT FOOT CLINICAL: Female, 45 years old. TWISTED RIGHT FOOT AND ANKLE IN A HOLE TODAY. PAIN RIGHT ANKLE LATERALLY INTO RIGHT FOOT LATERALLY WITH SWELLING. TECHNIQUE: 3 view(s) of the foot. COMPARISON: None. FINDINGS: Normal talus, calcaneus, and tarsal bones. Normal visualized subtalar, talonavicular, calcaneocuboid, tarsal and tarsometatarsal articulations. Normal metatarsi. Normal metatarsophalangeal joint of the great toe. Normal tibial and fibular sesamoid bones. Normal interphalangeal joint of the great toe. Normal phalanges of the great toe. Normal second through fifth metatarsophalangeal joints. Normal interphalangeal joints and phalanges of the lesser toes. There is no demonstrated soft tissue swelling. There is no demonstrated fracture. RAD/Foot min 3 Views IMPRESSION: Normal x-ray examination of the foot. Electronically Signed: Otis Pringle MD at 16:39 EDT , Service support ,
--- NOTE | 2020-11-21 16:16 | RAD_ITS ---
STUDY: X-RAY - RIGHT ANKLE REASON FOR EXAM: Female, 45 years old. TWISTED RIGHT FOOT AND ANKLE IN A HOLE TODAY. PAIN RIGHT ANKLE LATERALLY INTO RIGHT FOOT LATERALLY WITH SWELLING. TECHNIQUE: 3 view(s) of the ankle. COMPARISON: None. FINDINGS: Normal visualized distal tibia and fibula. Normal medial and lateral malleoli. Normal tibiotalar articulation and ankle mortise. Normal visualized talus and calcaneus. The visualized subtalar, talonavicular, calcaneocuboid and tarsal articulations are normal. There is no demonstrated fracture. The soft tissue structures are unremarkable. RAD/Ankle min 3 Views IMPRESSION: Normal x-ray examination of the ankle. Electronically Signed: Otis Pringle MD at 17:25 EDT , Service support ,
== END ==
PROVIDERS: PCP Family Medicine; Referring Provider Physician Assistant; Visit Provider Physician Assistant
DX: S99.911A Unspecified injury of right ankle, initial encounter (principal); S99.921A Unspecified injury of right foot, initial encounter; X58.XXXA Exposure to other specified factors, initial encounter; Y93.9 Activity, unspecified; Y92.9 Unspecified place or not applicable; Y99.9 Unspecified external cause status
CPT/HCPCS: 73610; 73630

== ENCOUNTER → 2020-11-23 13:26 | Outpatient (CLI) | payer OTHER, MEDICAID, SELFPAY ==
[2020-11-21 16:37] VITALS: BMI 37.8
--- NOTE | 2020-11-23 13:28 | RAD_ITS ---
STUDY: X-RAY - ABDOMEN/PELVIS REASON FOR EXAM: Female, 45 years old. Diffuse abdominal pain, distention TECHNIQUE: 3 AP views COMPARISON: None. FINDINGS: Normal visualized lung bases. There is an abundance of fecal material throughout the colon. There is no demonstrated free abdominal air. The visualized liver, spleen and kidneys are grossly normal in size and morphology. Normal soft tissue structures. Normal visualized osseous structures. RAD/Abdomen Single View IMPRESSION: No acute findings, retained stool throughout the colon Electronically Signed: Jaspal Boyd MD at 13:46 EDT , Service support ,
== END ==
PROVIDERS: PCP Family Medicine; Referring Provider Family Medicine; Visit Provider Family Medicine
DX: R10.9 Unspecified abdominal pain (principal)
CPT/HCPCS: 74018

== ENCOUNTER 2021-03-26 18:13 | Outpatient (CLI) | payer OTHER, SELFPAY ==
[2021-03-26 18:34] VITALS: BP 114/84; PULSE 70; RESP 16; TEMP 36.9; O2SAT 97; BMI 35.9
[2021-03-26] MEDS: 0.9% Saline Lock 10 ML Syringe IV (18:37)
[2021-03-26 19:09] VITALS: BP 110/76; PULSE 69; RESP 16; TEMP 37; O2SAT 100
[2021-03-26 20:03] VITALS: BP 127/82; PULSE 70; RESP 16; TEMP 37.1; O2SAT 100
== END 2021-03-26 20:09 | disposition home or self-care (01) ==
LOC: MS3OUT 18:13 → MS3 18:14
PROVIDERS: PCP Family Medicine; Referring Provider Nurse Practitioner Adult Health; Visit Provider Nurse Practitioner Adult Health
DX: Z23 Encounter for immunization (principal); U07.1 COVID-19
CPT/HCPCS: J7050; M0245; Q0245; A4216

== ENCOUNTER → 2021-10-08 | Outpatient (CLI) | payer OTHER, MEDICAID, SELFPAY ==
[2021-10-08 12:39] LABS: Absolute Lymphocyte Count 2.08 X10^3/uL (0.83-4.51); Absolute Neutrophil Count 2.7 X10^3/uL (2.0-7.7); Basophil# 0.03 X10^3/uL; Basophil% 0.5 % (0-1); Eosinophil# 0.07 X10^3/uL; Eosinophils% 1.3 % (0-5); Erythrocyte Sedimentation Rate 13 mm/hr (0-30); Hematocrit 44.8 % (37-47); Hemoglobin 14.5 g/dL (12.0-15.0); Lymphocyte # 2.08 X10^3/ul (0.83-4.51); Lymphocyte % 37.9 % (19-41); Mean Corp Hgb Conc 32.4 g/dL (32-36); Mean Corpuscular Hgb 29.1 pg (27.0-32.0); Mean Platelet Vol. 11.3 fl (6.2-12.0); Monocyte# 0.56 X10^3/uL; Monocyte% 10.2 % (0-10); NRBC Flagged by Analyzer 0 % (0-5); Neutrophil # 2.73 X10^3/uL (2.7-7.7); Neutrophil % 49.7 % (47-70); Platelet Count 281 K/mm3 (150-450); RBC Distribution Width CV 12.4 % (11.6-14.6); Red Blood Count 4.98 M/mm3 (4.2-5.4); White Blood Count 5.5 K/mm3 (4.4-11.0)
[2021-10-08 13:03] LABS: ALB/GLOB Ratio 1.1 RATIO (0.9-2.4); AST(SGOT) 17 U/L (15-37); Alanine Aminotransfer ALT/SGPT 23 U/L (13-56); Albumin, Serum 3.9 g/dL (3.2-5.0); Alkaline Phosphatase 56 U/L (45-117); Anion Gap 6 (5-15); BUN 9 mg/dL (7-18); BUN/Creat Ratio 12.8 RATIO (10-20); CRP < 2.90 mg/L (0.0-3.0); Calcium,Total 8.7 mg/dL (8.5-10.1); Chloride 104 mmol/L (98-107); Cholesterol 285 mg/dL (200); EST Glomerular Filtration Rate 95 mL/min (>60); Est Glom Filt Rate - Afr Amer 116 mL/min (>60); Globulin 3.4 g/dL (2.2-4.2); Glucose 91 mg/dL (74-106); High Density Lipoprotein 53 mg/dL; Potassium 3.8 mmol/L (3.5-5.1); Protein, Total 7.3 g/dL (6.4-8.2); Sodium Level 137 mmol/L (136-145); Thyroid Stim Hormone (TSH) 8.58 uIU/mL (0.358-3.74); Triglycerides 203 mg/dL; Very Low Density Lipoprotein 41 mg/dL (5-40); Vitamin B12 284 pg/mL (211-911); Vitamin D,25 Hydroxy 25.1 ng/mL
[2021-10-08 13:09] LABS: Hemoglobin A1c 5.8 % (3.8-5.6)
[2021-10-10 17:13] LABS: ANTINUCLEAR ANTIBODIES DIRECT Negative (Negative)
== END | disposition home or self-care (01) ==
LOC: MTLAB 09:19
PROVIDERS: PCP Family Medicine; Referring Provider Family Medicine; Visit Provider Family Medicine
DX: Z00.00 Encounter for general adult medical examination without abnormal findings (principal); E11.9 Type 2 diabetes mellitus without complications; E03.9 Hypothyroidism, unspecified; R53.83 Other fatigue; M25.50 Pain in unspecified joint
CPT/HCPCS: 80053; 80061; 82306; 82607; 83036; 84443; 85025; 85652; 86038; 86140; 86225; 86235

== ENCOUNTER → 2021-10-11 | Outpatient (CLI) | payer OTHER, SELFPAY ==
[2021-10-11 15:31] LABS: Red Blood Cells-Urine 0 SEEN /hpf (0-5); White Blood Cells 0 SEEN /hpf (0-5)
[2021-10-11 15:35] LABS: Color, Urine Yellow (Yellow); Glucose, Dipstick Normal (Normal); Ketone-Dipstick 5 mg/dl (Negative); Leukocyte Esterase-Dipstick Negative /ul (Negative); Nitrite-Dipstick Negative (Negative); Occult Blood-Urine Negative /ul (Negative); Protein-Dipstick 15 mg/dl (Negative); Urine Bilirubin Dipstick Negative (Negative); Urine Clarity Clear (Clear); Urine Urobilinogen 1 mg/dl (Normal)
[2021-10-11 15:53] LABS: Bacteria 1+ /hpf (None Seen); Mucous, Urine 1+ /hpf (<or=2+); Squamous Epithelial Cells - UA 5-10 SEEN /hpf (5-10)
== END | disposition home or self-care (01) ==
LOC: LABSPEC 15:28
PROVIDERS: PCP Family Medicine; Referring Provider Physician Assistant Surgical; Visit Provider Physician Assistant Surgical
DX: N39.0 Urinary tract infection, site not specified (principal)
CPT/HCPCS: 81001; 87086; 87088

== ENCOUNTER → 2022-03-18 | Outpatient (CLI) | payer OTHER, SELFPAY ==
[2022-03-18 08:40] LABS: Absolute Lymphocyte Count 2.38 X10^3/uL (0.83-4.51); Absolute Neutrophil Count 4.1 X10^3/uL (2.0-7.7); Basophil# 0.04 X10^3/uL; Basophil% 0.5 % (0-1); Eosinophil# 0.03 X10^3/uL; Eosinophils% 0.4 % (0-5); Hematocrit 44.4 % (37-47); Lymphocyte # 2.38 X10^3/ul (0.83-4.51); Lymphocyte % 32.4 % (19-41); Mean Corp Hgb Conc 33.8 g/dL (32-36); Mean Corpuscular Volume 88.8 fL (81-99); Mean Platelet Vol. 10.5 fl (6.2-12.0); Monocyte# 0.75 X10^3/uL; Monocyte% 10.2 % (0-10); NRBC Flagged by Analyzer 0 % (0-5); Neutrophil # 4.11 X10^3/uL (2.7-7.7); Neutrophil % 56.1 % (47-70); Platelet Count 334 K/mm3 (150-450); RBC Distribution Width CV 12.1 % (11.6-14.6); White Blood Count 7.3 K/mm3 (4.4-11.0)
[2022-03-18 09:08] LABS: BNP,B-Type NATRIURETIC PEPTIDE 15.1 pg/mL (0-100)
[2022-03-18 09:22] LABS: AST(SGOT) 17 U/L (15-37); Alanine Aminotransfer ALT/SGPT 29 U/L (13-56); Albumin, Serum 3.8 g/dL (3.2-5.0); Alkaline Phosphatase 49 U/L (45-117); Anion Gap 8 (5-15); BUN 7 mg/dL (7-18); BUN/Creat Ratio 9.9 RATIO (10-20); Bilirubin, Direct 0.13 mg/dL (0.00-0.30); Calcium,Total 8.4 mg/dL (8.5-10.1); Chloride 102 mmol/L (98-107); Cholesterol 255 mg/dL (200); Creatinine, Serum 0.71 mg/dL (0.55-1.02); EST Glomerular Filtration Rate 94 mL/min (>60); Est Glom Filt Rate - Afr Amer 114 mL/min (>60); Globulin 3.3 g/dL (2.2-4.2); Glucose 127 mg/dL (74-106); High Density Lipoprotein 53 mg/dL; Potassium 3.8 mmol/L (3.5-5.1); Protein, Total 7.1 g/dL (6.4-8.2); Sodium Level 136 mmol/L (136-145); Triglycerides 156 mg/dL; Very Low Density Lipoprotein 31 mg/dL (5-40)
== END | disposition home or self-care (01) ==
LOC: LAB 08:04
PROVIDERS: PCP Family Medicine; Referring Provider Nurse Practitioner Gerontology; Visit Provider Nurse Practitioner Gerontology
DX: R06.00 Dyspnea, unspecified (principal); R53.83 Other fatigue; E78.5 Hyperlipidemia, unspecified
CPT/HCPCS: 36415; 80048; 80061; 80076; 83880; 84443; 85025

== ENCOUNTER → 2022-04-04 | Outpatient (CLI) | payer OTHER, SELFPAY ==
--- NOTE | 2022-04-04 06:11 | ECHOD_ITS ---
Reason For Study: Dyspnea/SOB Procedure This was a 2D Doppler, Color Flow transthoracic echocardiogram. The exam was of adequate technical quality. Exam performed in department. Left Ventricle Normal LV size. Left ventricular systolic function is normal. The estimated ejection fraction is 65 %. No evidence for diastolic dysfunction. No regional wall motion abnormalities noted. Right Ventricle Normal RV size. Normal systolic function. Atria Normal left atrium. Normal right atrium. No doppler evidence for ASD. Mitral Valve There is no mitral annular calcification. Normal mitral valve. Trivial mitral valve insufficiency. Tricuspid Valve Normal tricuspid valve. Trivial tricuspid valve insufficiency. Unable to estimate RV systolic pressure due to insufficient tricuspid regurgitant envelope. Aortic Valve Trisinus/trileaflet aortic valve. Normal aortic valve. Pulmonic Valve The pulmonic valve is not well visualized. Mild (1+) pulmonic valve insufficiency. Great Vessels Normal sized aortic root. MMode/2D Measurements & Calculations LVIDd: 5.0 cm IVSd: 0.75 cm Ao root diam: 2.6 cm LVIDs: 3.2 cm LVPWd: 0.72 cm RVDd: 3.4 cm FS: 36.3 % LAV(MOD-bp): 32.0 ml LVAd ap4: 24.2 cm2 SV(MOD-sp4): 41.9 ml LAV(MOD-bp) Indexed: 16.6 ml/m2 LVLd ap4: 7.3 cm LAV(MOD-sp2): 38.2 ml EDV(MOD-sp4): 65.7 ml LAV(MOD-sp4): 26.7 ml EDV(sp4-el): 68.1 ml LVAs ap4: 12.7 cm2 LVLs ap4: 5.8 cm ESV(MOD-sp4): 23.7 ml ESV(sp4-el): 23.3 ml EF(MOD-sp4): 63.8 % EF(sp4-el): 65.8 % SV(sp4-el): 44.8 ml LA dimension(2D): 3.4 cm LA A4 area: 12.4 cm2 RA A4 area: 11.0 cm2 Time Measurements MV dec time: 0.22 sec Doppler Measurements & Calculations MV E max ulysses: 64.3 cm/sec Lat Peak E' Ulysses: 11.5 cm/sec Med Peak E' Ulysses: 7.2 cm/sec MV A max ulysses: 71.9 cm/sec E/E' lat: 5.6 E/E' med: 9.0 MV E/A: 0.89 Ao V2 max: 112.9 cm/sec LV V1 max: 103.6 cm/sec PA V2 max: 86.7 cm/sec Ao max P.1 mmHg LV V1 max P.3 mmHg Ao V2 mean: 76.2 cm/sec Ao mean P.6 mmHg Ao V2 VTI: 21.5 cm PI end-d ulysses: 83.7 cm/sec ECHO/Echo Complete Interpretation Summary Left ventricular systolic function is normal. The estimated ejection fraction is 65 %. Trivial mitral valve insufficiency. Trivial tricuspid valve insufficiency. Mild (1+) pulmonic valve insufficiency. Unable to estimate RV systolic pressure due to insufficient tricuspid regurgita nt envelope. No evidence for diastolic dysfunction. Ordering Physician: Sherin Bailey Referring Physician: Bette Reaves Performed By: Kailee Carroll, RDHUBER, RVT
--- NOTE | 2022-04-04 09:10 | STRESSREP ---
Stress Test Report Date: 04-04-2023 Procedure: Exercise tolerance test/imaging study Indications: Chest pain; PACs/PVCs Consent: Per the patient Procedure: The patient exercised on a Maxime protocol for 9 minutes and 31 seconds completing Stage III and 31 seconds of Stage IV achieving a peak heart rate of 150 bpm (86% predicted maximal heart rate) with resting blood pressure of 122/84 mmHg and a peak blood pressure 160/72 mmHg and a peak MET capacity of 11 METs. The baseline ECG demonstrated normal sinus rhythm; nonspecific ST/T wave abnormality. The peak exercise ECG demonstrated continued nonspecific ST/T wave abnormality. There was an isolated ventricular couplet in recovery. The functional capacity was considered good. There was no complaint of chest discomfort during exercise or recovery. The examination was discontinued secondary to dyspnea. Impression: 1. Technically adequate (percent predicted maximal heart rate greater than 85%) exercise tolerance test 2. Peak exercise ECG with continued nonspecific ST/T wave abnormality 3. There was an isolated ventricular couplet in recovery 4. Nuclear images pending Myocardial perfusion imaging study: Technique: The patient was injected with 13.0 mCi of technetium 99m Cardiolite and subsequently rest SPECT Cardiolite nuclear imaging was obtained in the horizontal long, vertical long, and short axis views. The patient exercised on a Maxime protocol for 9 minutes and 31 seconds completing Stage III and 31 seconds of Stage IV achieving a peak heart rate of 150 bpm (86% predicted maximal heart rate) with resting blood pressure of 122/84 mmHg and a peak blood pressure 160/72 mmHg and a peak MET capacity of 11 METs. The patient was injected with 43.0 mCi of technetium 99m Cardiolite and subsequently stress SPECT Cardiolite nuclear imaging was obtained in the horizontal long, vertical long, and short axis views. A gated Cardiolite study at peak stress was obtained. Interpretation: Rest and stress SPECT Cardiolite nuclear imaging status post realignment, normalization, and attenuation correction, demonstrates the appearance of relative uniform tracer uptake and myocardial perfusion appearing within normal limits. There is end systolic thickening and brightening. The gated Cardiolite study demonstrates myocardial thickening and inward wall motion. The reported LVEF is 69%. Impression: 1. Rest and stress SPECT Cardiolite nuclear imaging demonstrate relative uniform tracer uptake and myocardial perfusion appearing within normal limits. 2. The gated Cardiolite study reports an LVEF of 69%. This note was generated with Dragon dictation software. It may contain incorrect words, spelling, and punctuation that were not noted in checking the note before signing.
== END | disposition home or self-care (01) ==
PROVIDERS: PCP Family Medicine; Referring Provider Nurse Practitioner Gerontology; Visit Provider Nurse Practitioner Gerontology
DX: R06.00 Dyspnea, unspecified (principal); R07.9 Chest pain, unspecified
CPT/HCPCS: 78452; 93017; 93306; A9500; A4216

== ENCOUNTER → 2022-05-12 | Outpatient (CLI) | payer OTHER, MEDICAID, SELFPAY ==
[2022-05-12 10:39] LABS: T4 Free Direct 1.42 ng/dL (0.76-1.46); Thyroid Stim Hormone (TSH) 0.14 uIU/mL (0.358-3.74)
== END | disposition home or self-care (01) ==
LOC: MTLAB 08:57
PROVIDERS: PCP Family Medicine; Referring Provider Family Medicine; Visit Provider Family Medicine
DX: E03.9 Hypothyroidism, unspecified (principal)
CPT/HCPCS: 36415; 84439; 84443

== ENCOUNTER → 2022-07-16 | Outpatient (CLI) | payer OTHER, MEDICAID, SELFPAY ==
[2022-07-16 16:35] LABS: T4 Free Direct 1.21 ng/dL (0.76-1.46); Thyroid Stim Hormone (TSH) 0.41 uIU/mL (0.358-3.74)
== END | disposition home or self-care (01) ==
LOC: BFHLAB 13:24
PROVIDERS: PCP Family Medicine; Referring Provider Family Medicine; Visit Provider Family Medicine
DX: E03.9 Hypothyroidism, unspecified (principal)
CPT/HCPCS: 36415; 84439; 84443

== ENCOUNTER 2022-10-27 08:56 | Emergency (ER) | payer OTHER, MEDICAID, SELFPAY ==
[2022-10-27 08:57] VITALS: BP 150/95; PULSE 95; RESP 14; TEMP 36.5; O2SAT 99; BMI 35.2
--- NOTE | 2022-10-27 09:26 | MRI_ITS ---
EXAM: MR LUMBAR SPINE WITHOUT INTRAVENOUS CONTRAST CLINICAL INDICATION: atraumatic pain and leg weakness back pain TECHNIQUE: Multiplanar and multisequence MR images of the lumbar spine without intravenous contrast. COMPARISON: xr 11.15.21 MRI May 25 2017 4:39pm FINDINGS: VERTEBRAE: Unremarkable. Vertebral body heights are preserved. Normal vertebral bodies and posterior elements. Normal alignment. No spondylolisthesis. There is preservation of the normal lumbar lordosis. SPINAL CORD: Unremarkable. Normal position and signal intensity of the conus medullaris. SOFT TISSUES: Unremarkable. DISCS/SPINAL CANAL/NEURAL FORAMINA: L1-L2: Unremarkable. Normal disc height and morphology. Normal spinal canal and lateral recesses. Normal neuroforamina. L2-L3: Unremarkable. Normal disc height and morphology. Normal spinal canal and lateral recesses. Normal neuroforamina. L3-L4: Unremarkable. Normal disc height and morphology. Normal spinal canal and lateral recesses. Normal neuroforamina. L4-L5: Unremarkable. Normal disc height and morphology. Normal spinal canal and lateral recesses. Normal neuroforamina. L5-S1: Resolution of the prior annular bulge at L5-S1. Normal spinal canal and lateral recesses. Normal neuroforamina. MRI/Spine Lumbar (Routine) IMPRESSION: Resolution of the prior annular bulge at L5-S1. Electronically Signed: Leonardo Jay MD at 16:22 EDT ,
--- NOTE | 2022-10-27 09:27 | ED.VIS.BACK ---
HPI History of Present Illness Chief Complaint: Back Informant: patient and spouse/S.O. Onset/Context/Timing Onset: Yesterday Context: Gradual Onset Timing: Continuous Location: Lumbar Current Severity: Moderate Maximum Severity: Moderate Worsened by: improves with Movement Relieved by: Remaining Still Associated Symptoms Associated Symptoms: Radiation to Right Leg; Negative for Numbness, Tingling, Radiation to Left Leg, Fever, Abdominal Pain, Dysuria, Unable to Ambulate, Unable to Transfer, Urinary Retention, Urinary Incontinence, Constipation or Fecal Incontinence Narrative Narrative: 47-year-old female history of sciatica and diabetes. Prior hysterectomy and bladder repair surgery. States that she has had chronic back pain but yesterday it was much worse. On both sides of her lumbar spine. At times radiating to her left thigh. Denies any bowel or bladder incontinence or retention. No prior back surgery. No fall or trauma. No fever. 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 Says subjectively her legs feel weak they are not numb. Worse with movement. Prior similar symptoms: Yes and With Prior Back Pain Recent Illness/Hospitalization: No [facility] Medical History Acute sinusitis, unspecified Adverse effect of unspecified drugs, medicaments and biological substances, initial encounter Allergic rhinitis with postnasal drip Asthma Bilateral renal artery stenosis Bulging lumbar disc Bulging of cervical intervertebral disc Chest pain, unspecified Cough Elevated C-reactive protein Encounter for screening for COVID-19 Essential hypertension Fibromyalgia Fibromyalgia History of Holter monitoring (~02/2017) Malaise and fatigue Palpitations Premature atrial contraction Premature ventricular contraction Restrictive airway disease Right ankle sprain Right foot sprain Segmental and somatic dysfunction of cervical region Segmental and somatic dysfunction of lumbar region Segmental and somatic dysfunction of thoracic region Thyroid disorder Type 2 diabetes mellitus Home Medications cholecalciferol (vitamin D3) 25 mcg (1,000 unit) capsule 25 mcg PO DAILY 06/05/22 [History Last Taken Unknown] cyanocobalamin (vitamin B-12) 500 mcg tablet 500 mcg PO DAILY 06/05/22 [History Last Taken Unknown] levothyroxine 125 mcg tablet 125 mcg PO DAILY 06/05/22 [History Last Taken Unknown] azithromycin 250 mg tablet 250 mg PO QDAY #12 tabs 09/19/22 [Rx Last Taken Unknown] benzonatate 200 mg capsule 200 mg PO TID PRN cough #20 caps 09/19/22 [Rx Last Taken Unknown] metaxalone 800 mg tablet 800 mg PO TID 7 days #21 tabs 10/27/22 [Rx Last Taken Unknown] Allergy/AdvReac Type Severity Reaction Status Date / Time aspirin Allergy Unknown Verified 10/27/22 08:59 hydrocodone bitartrate Allergy Swelling Verified 10/27/22 08:59 [From Vicodin] Sulfa (Sulfonamide Allergy Hives Verified 10/27/22 08:59 Antibiotics) duloxetine [From Cymbalta] AdvReac Severe Hives & Verified 10/27/22 08:59 dyspnea, to both generaic & Brand meloxicam AdvReac Intermediate Hives Verified 10/27/22 08:59 fluticasone AdvReac chest Verified 10/27/22 08:59 [From Flovent Diskus] shaky made me feel really weird Penicillins AdvReac Upset Verified 10/27/22 08:59 Stomach Family History Mother Hypertension Diabetes Cancer Sister Diabetes Brother Diabetes Surgical History History of cholecystectomy History of hysterectomy History of Buster fundoplication Hx of bladder repair surgery S/P Buster fundoplication (without gastrostomy tube) procedure Social History Smoking Status: Never smoker alcohol intake: never substance use type: does not use caffeine: No ROS ROS ED ROS Narrative Low back pain. No recent illness. No fever. No vomiting or diarrhea. No dysuria or incontinence. Review of Systems ROS Unobtainable: Denies due to encephalopathy Constitutional Constitutional ED: Denies chills or fever(s) Eyes Eyes: Denies blurry vision ENT ENT ED: Denies ear pain Respiratory/Chest Respiratory/Chest: Denies dyspnea Gastrointestinal Gastrointestinal: Denies abdominal pain Genitourinary Genitourinary ED: Denies dysuria or hematuria Musculoskeletal Musculoskeletal: Reports back pain; Denies arthralgias, myalgias or neck pain Integumentary Denies abscess Neurologic Neurologic: Denies headache(s) Psychiatric Psychiatric: Denies anxiety Endocrine Endocrinology: Denies cold intolerance Hematologic/Lymphatic Hematologic/Lymphatic: Denies easy bleeding or easy bruising Allergic/Immunologic Allergic/Immunologic ED: Denies mouth swelling or tongue swelling EXAM Physical Exam Narrative Exam Narrative: 47-year-old female vital signs stable afebrile. Does not look septic toxic. H EENT exam unremarkable. Neck nontender. Lungs clear to auscultation bilaterally. Heart regular rhythm rate about 95 no murmur. Chest were nontender. Abdomen soft nontender. Moving all 4 extremities. Neurovascularly intact. She has no cauda equina or saddle anesthesia. Normal medial thigh sensation. Normal sensation on both the medial and lateral aspects of both lower extremities. Normal dorsi plantarflexion with normal motor strength. Back exam she is tender over the lumbar spine and paralumbar soft tissues. There is no redness or warmth. No bony deformity or signs of trauma. Neurologically she is awake and alert with no focal motor or sensory deficits. NIH is 0. Good motor strength and sensation in both lower extremities. Negative straight leg raise. Patient got up to walk to the restroom and was able to but was having difficulty walking. Const Vital Signs: 10/27/22 08:57 Temperature 97.7 F L Temperature Source Temporal Pulse Rate 95 Respiratory Rate 14 Blood Pressure 150/95 H Blood Pressure Mean 113 Pulse Ox 99 Oxygen Delivery Method Room Air Positive well nourished and well developed; Negative for cachectic, contractures or unkempt General Appearance ED: well developed and NAD; Negative for unkempt, cachectic, contractures or pallor Nutritional Appearance: Negative for cachectic HEENT Reports moist mucous membranes; Denies dry mucous membranes Negative for trauma or tenderness Mouth ED: No dry mucous membranes Mouth: No dry mucous membranes Eyes PERRL and EOMs intact bilaterally General Eye ED: Negative for pale conjunctiva or scleral icterus Neck no lymphadenopathy, supple and no JVD General: Negative for tenderness Thyroid: Negative for other Chest Wall Chest: Negative for other Resp normal respiratory effort and clear to auscultation bilaterally Effort and Inspection: Negative for pain with movement Auscultation: Negative for rales, rhonchi or wheezes Cardio regular rate, regular rhythm, S1 normal heart sound, S2 normal heart sound and no murmurs Palpation: Negative for palpable S3 Rate: Negative for bradycardia or tachycardic Rhythm: Negative for abnormal rhythm Bruits: Negative for other GI normal to inspection, nondistended, normoactive bowel sounds, soft to palpation, non-tender, non-distended and no masses Inspection: Negative for abdominal distention Auscultation: Negative for hyperactive bowel sounds Palpation: Negative for tender or guarding Back/Spine Negative for normal to inspection or no thoracic nor lumbar tenderness Back/Spine Narrative: Spine tenderness over the lumbar spine and paralumbar soft tissues. No signs of trauma. No redness or warmth. General Back: Negative for CVA tenderness Cervical Spine: Negative for cervical spine tenderness and Negative for paracervical muscle tenderness Thoracic Spine / Upper Back: Negative for paraspinal muscle tenderness Lumbar Spine / Lower Back: ROM limited and straight leg raise negative bilaterally Extremity General Extremety ED: Negative for edema, tenderness or other findings General Extremity: Negative for edema or other findings Neuro oriented x3 and no sensory deficits noted Sensorium / Orientation: alert; Negative for confused, lethargic or stuporous Sensory Exam: No other Motor Exam: strength 5/5 throughout Psych mental status grossly normal Appearance: Negative for unkempt or other Attitude: No agitated Mood & Affect: Negative for depressed, sad or tearful Skin no rashes or lesions noted and no wounds General Skin Exam: Negative for jaundice or pallor Lesions: No lesion noted Rashes: No rashes noted Trauma: Negative for abrasion or puncture Wounds: Negative for wounds noted MDM MDM MDM Narrative Medical decision making narrative: 47 female with acute on chronic low back pain and subjective weakness to her legs. Her neurologic exam is normal. She has reproducible pain. Some of this may be lumbar and paralumbar muscle spasm. She will be treated with Toradol morphine and Zofran. Said this been a chronic issue progressively getting worse she has never had a work-up. She had no trauma I do not think lumbar spine films of any significance. Due to her difficulty in walking due to pain and weakness in her legs even though objectively she seems to have normal strength and sensation in both lower extremities if possible obtain MRI of the lumbar spine. Multiple repeat exams patient is doing Better after her pain medication. She has been able to ambulate to the bathroom with discomfort but she is able to walk. Repeat exam at 230 again shows no cauda equina. Dorsi and plantarflexion. Normal medial thigh sensation. She is awaiting her MRI. She will be checked out to the afternoon physician. As well as the MRI does not have any significant acute pathology she will be discharged home with anti-inflammatories and muscle relaxants to follow-up with a spine doctor. History & Record Review Discussion w/independent historian: Patient and Family Discharge Plan Triage Chief Complaint: Back ED Provider: Kahlil Foy Dx/Rx/DC Orders Clinical Impression: Back pain, Lumbar paraspinal muscle spasm Instructions: ED Back Pain (Acute or Chronic), ED Muscle Spasm Prescriptions: New metaxalone 800 mg tablet 800 mg PO TID 7 Days Qty: 21 0RF No Action levothyroxine 125 mcg tablet 125 mcg PO DAILY cyanocobalamin (vitamin B-12) 500 mcg tablet 500 mcg PO DAILY cholecalciferol (vitamin D3) 25 mcg (1,000 unit) capsule 25 mcg PO DAILY azithromycin 250 mg tablet 250 mg PO QDAY Qty: 12 0RF Rx Instructions: 2 tablets today, then 1 tablet daily on days 2 through 11 benzonatate 200 mg capsule 200 mg PO TID PRN (Reason: cough) Qty: 20 0RF Primary Care Provider: Franc Salinas Referrals: Favio Deluna DO [Med Staff - Active Staff] - As soon as possible Franc Salinas DO [Primary Care Provider] - Activity Restrictions/Additional Instructions: Follow-up with a spine doctor for further evaluation. They can also review your MRI results. Motrin for pain and inflammation. Skelaxin as a muscle relaxant 3 times a day. Disposition Disposition: Home, Self Care
[2022-10-27] MEDS: Ketorolac 30 MG/ML Syringe IV (09:42)
[2022-10-27] MEDS: Ondansetron 4 MG/2 ML Vial IV (09:42)
[2022-10-27] MEDS: morphine 8 MG/ML Syringe IV (09:42)
[2022-10-27] MEDS: Metaxalone 800 MG Tablet PO (14:10)
[2022-10-27 16:59] VITALS: BP 135/83; PULSE 81; RESP 14; O2SAT 97
== END 2022-10-27 17:00 | disposition home or self-care (01) ==
PROVIDERS: Emergency Provider Emergency Medicine; PCP Family Medicine; Visit Provider Emergency Medicine
DX: M62.830 Muscle spasm of back (principal); G89.29 Other chronic pain; I10 Essential (primary) hypertension; Z79.899 Other long term (current) drug therapy
CPT/HCPCS: 72148; 96374; 96375; 99284; J2405

== ENCOUNTER → 2022-10-29 | Outpatient (CLI) | payer OTHER, MEDICAID, SELFPAY ==
[2022-10-29 13:01] LABS: Absolute Lymphocyte Count 1.76 X10^3/uL (0.83-4.51); Absolute Neutrophil Count 1.4 X10^3/uL (2.0-7.7); Basophil# 0.04 X10^3/uL; Basophil% 0.9 % (0-1); Eosinophil# 0.14 X10^3/uL; Eosinophils% 3.3 % (0-5); Hematocrit 45.1 % (37-47); Hemoglobin 14.4 g/dL (12.0-15.0); Lymphocyte # 1.76 X10^3/ul (0.83-4.51); Mean Corp Hgb Conc 31.9 g/dL (32-36); Mean Corpuscular Hgb 29.3 pg (27.0-32.0); Mean Corpuscular Volume 91.9 fL (81-99); Mean Platelet Vol. 12.4 fl (6.2-12.0); Monocyte# 0.92 X10^3/uL; Monocyte% 21.4 % (0-10); NRBC Flagged by Analyzer 0 % (0-5); Neutrophil # 1.39 X10^3/uL (2.7-7.7); Neutrophil % 32.5 % (47-70); Platelet Count 262 K/mm3 (150-450); RBC Distribution Width CV 12.1 % (11.6-14.6); RBC Distribution Width SD 40.6 fl (35.1-43.9); Red Blood Count 4.91 M/mm3 (4.2-5.4); White Blood Count 4.3 K/mm3 (4.4-11.0)
[2022-10-29 13:25] LABS: AST(SGOT) 35 U/L (15-37); Alanine Aminotransfer ALT/SGPT 68 U/L (13-56); Albumin, Serum 3.7 g/dL (3.2-5.0); Alkaline Phosphatase 61 U/L (45-117); Anion Gap 8 (5-15); BUN 8 mg/dL (7-18); BUN/Creat Ratio 9.6 RATIO (10-20); Calcium,Total 9.1 mg/dL (8.5-10.1); Chloride 105 mmol/L (98-107); Cholesterol 236 mg/dL (200); Creatinine, Serum 0.83 mg/dL (0.55-1.02); EST Glomerular Filtration Rate 78 mL/min (>60); Est Glom Filt Rate - Afr Amer 94 mL/min (>60); Globulin 3.8 g/dL (2.2-4.2); Glucose 110 mg/dL (74-106); High Density Lipoprotein 50 mg/dL; Potassium 3.8 mmol/L (3.5-5.1); Protein, Total 7.5 g/dL (6.4-8.2); Sodium Level 139 mmol/L (136-145); T4 Free Direct 1.22 ng/dL (0.76-1.46); Thyroid Stim Hormone (TSH) 0.76 uIU/mL (0.358-3.74); Triglycerides 123 mg/dL; Very Low Density Lipoprotein 25 mg/dL (5-40)
== END | disposition home or self-care (01) ==
LOC: BFHLAB 08:13
PROVIDERS: PCP Family Medicine; Referring Provider Family Medicine; Visit Provider Family Medicine
DX: Z00.00 Encounter for general adult medical examination without abnormal findings (principal); E03.9 Hypothyroidism, unspecified
CPT/HCPCS: 36415; 80053; 80061; 84439; 84443; 85025

== ENCOUNTER → 2022-10-31 | Outpatient (CLI) | payer OTHER, MEDICAID, SELFPAY ==
[2022-10-31 18:43] LABS: Vitamin B12 849 pg/mL (211-911)
== END | disposition home or self-care (01) ==
LOC: BFHLAB 14:18
PROVIDERS: PCP Family Medicine; Referring Provider Family Medicine; Visit Provider Family Medicine
DX: E53.8 Deficiency of other specified B group vitamins (principal)
CPT/HCPCS: 36415; 82607

== ENCOUNTER → 2022-11-11 | Outpatient (CLI) | payer OTHER, MEDICAID, SELFPAY ==
--- NOTE | 2022-11-11 16:17 | BI_ITS ---
MAMMOGRAPHY - BILATERAL SCREENING 3-D TOMOSYNTHESIS REASON FOR EXAM: Female, 47 years old. Routine screening PERTINENT HISTORY: No significant family history. TECHNIQUE: 2-D mammograms and 3-D Tomosynthesis of the breast (s) were performed. CAD was performed. COMPARISON: 11/01/2020 FINDINGS: The breast composition is composed of scattered fibroglandular density. Scattered benign calcifications are seen. No dense spiculated masses or suspicious microcalcifications are identified. No architectural distortion is identified. There is no skin thickening or retraction. There has been no significant change since the prior study. BI/SCRN MAMM (CAD)W/JELENA BILAT IMPRESSION: No mammographic signs of malignancy. Routine yearly mammograms recommended. ASSESSMENT CATEGORY: BIRADS Category 1: Negative. A letter regarding these results will be sent to the patient by the facility within 30 days. FOLLOW UP RECOMMENDATION: Yearly follow up mammogram recommended. (A) Approximately 10% of breast cancers are not detected by mammography. A normal mammogram should not delay biopsy of a clinically suspicious abnormality. Electronically Signed: Jaspal Boyd MD at 8:42 EDT ,
== END | disposition home or self-care (01) ==
LOC: OPBI 16:15
PROVIDERS: PCP Family Medicine; Referring Provider Family Medicine; Visit Provider Family Medicine
DX: Z12.31 Encounter for screening mammogram for malignant neoplasm of breast (principal)
CPT/HCPCS: 77063; 77067

== ENCOUNTER → 2022-11-21 | Outpatient (CLI) | payer OTHER, MEDICAID, SELFPAY ==
--- NOTE | 2022-11-21 08:10 | MRI_ITS ---
EXAM: MR HEAD WITHOUT AND WITH INTRAVENOUS CONTRAST CLINICAL INDICATION: MULTIPLE NEURO SYMPTOMS, MUSCLE WEAKNESS, FATIGUE, ?? MS TECHNIQUE: Multiplanar and multisequence MR images of the brain were obtained without and with intravenous contrast. CONTRAST: 19 CC IV CLARISCAN COMPARISON: CT head without contrast 11/06/2017. FINDINGS: BRAIN AND EXTRA-AXIAL SPACES: Unremarkable. No intra- or extra-axial hemorrhage. No evidence of acute infarct. No intracranial mass or mass effect. There is preservation of the galvez/white matter interface. Posterior fossa structures are unremarkable. Ventricles are appropriate for age. No hydrocephalus. Basal cisterns are patent. Following IV contrast administration, there are no abnormal enhancing lesions intra-axially and extra-axially. SELLA: Unremarkable. Normal sella turcica, pituitary gland, infundibular stalk, optic chiasm and hypothalamus. AUDITORY SYSTEM: Unremarkable. The internal auditory canals are patent. BONES/JOINTS: Unremarkable. No discrete lytic or blastic abnormalities. SINUSES: Unremarkable as visualized. Clear. MASTOID AIR CELLS: Unremarkable as visualized. Clear. ORBITS: Unremarkable as visualized. Both globes, extraocular muscles, optic nerves and retrobulbar fat appear unremarkable. VASCULATURE: Unremarkable as visualized. Normal flow voids in the major intracranial circulation. MRI/Brain W/WO Contrast IMPRESSION: Normal MRI brain without and with intravenous contrast. Electronically Signed: Arun Bocanegra MD at 15:49 EDT ,
== END | disposition home or self-care (01) ==
LOC: MRI 07:59
PROVIDERS: PCP Family Medicine; Referring Provider Family Medicine; Visit Provider Family Medicine
DX: R20.2 Paresthesia of skin (principal); R29.898 Other symptoms and signs involving the musculoskeletal system
CPT/HCPCS: 70553; A9575

== ENCOUNTER 2023-01-15 13:30 | Outpatient (RCR) | payer OTHER, MEDICAID, SELFPAY ==
--- NOTE | 2022-11-12 16:51 | HP.PTEVAL_ITS ---
Patient's Visit Information Visit Information Visit Information: JACINDA ISBELL is a 47 year old F referred to Physical Therapy by Dr. Jessee Whitmore DO with a diagnosis of Facet Arthrosis. Date of Evaluation: 11/12/22 Physical Therapist: Hali Dahl DPT Visit Plan Frequency: 2x /Week Duration: 4 Weeks Plan: Aquatics- focus on LE and core strength/stabilization- minimalize radicular s/s Subjective Subjective: Patient reports that about 3 weeks ago she was helping her daughter move- unsure of what she did- but the next day she was laying on her bed since her back hurt so bad. Took Ibuprofen tried to sleep but was walking sideways down the stairs- sat in the chair and then she had to go to the ER due to the pain. They did an MRI and gave her lots of pain medications. She is just now to where she is not having the pain when she was having. She is in pain all the time and her legs go numb. She has spoken to her family doctor and they did blood work and everything is good. They are doing an MRI for MS. She has fibro already. She saw Dr. Whitmore for her back- sent her to PT and see if it works, if not then he wants to try injections. The left leg goes numb from the hip to the knee when she is standing but gets better when she is sitting. No N/T in the right leg. The back pain comes and goes. She does not have any back pain today. When she does have the back pain its along the belt line. Eases: bowel movement, warm bath. Agg: standing, walking. Describes the pain as dull and achy. 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 Sleep: disturbed- hard to get comfortable. PMHx/Meds: no changes since saw Dr. Whitmore Objective Objective: More pain bending towards the right Right weakness Objective: Posture: FH, RS- can correct with verbal cues but is unable to maintain in both sitting and standing Gait: forward posture- no deviation noted - good nan- good trunk rotation and arm swing HR/TR: able with UE A SLS: 2-3 sec with mild hip drop- reports more stability on the left LE Sit to Stand: no UE A to rise from chair Sensation: WNL to gross touch bilateral LE Reflex: WFL to patella ROM: Lumbar hands to knees with pain, extn: wfl, SB and rotation: WFL pain with sb to the right Hip: WFL no pain Strength: Core: fair minus Hip: Right: 4-/5 throughout Left: 4/5 throughout , Knee: 4+/5, Ankle: 5/5. Palpation: tender along great right paraspinals and spinous process of the lumbar spine with PA glides Flex: HS: right: severe left: mod, Gastroc: mod Stairs: asc/desc recip with 1 HR- poor control with descent Special Tests L/S Slump test left side: Negative L/S Slump test right side: Positive L/S Left Straight Leg Raise: Negative L/S Right Straight Leg Raise: Positive R Hip Scour: Negative R Hip LATHA - Intraarticular Pathology: Negative R Hip FADDIR - Labrum: Negative R Hip Impingement Provocation - Labrum: Negative L Hip Scour: Negative L Hip LATHA - Intraarticular Pathology: Negative L Hip FADDIR - Labrum: Negative L Hip Impingement Provocation - Labrum: Negative Balance/Special Test Scores Oswestry Low Back Score: 17 Goals Goal 1:: Patient will be I with HEP and progression Goal Time Frame: 4-6 Weeks Goal 2:: Patient will maintain proper posture t/o tx session to demo increased core s/s Goal Time Frame: 4-6 Weeks Goal 3:: Patient will report 80% improvement Goal Time Frame: 4-6 Weeks Goal 4:: Patient will report no radicular s/s for 1 week Goal Time Frame: 4-6 Weeks Rehabilitation Potential Physical Therapy Diagnosis: Patient presents with hypomobility- she has decreased LE and core strength/stabilization, flex and muscular endurance leadin g to poor posture and increased pain with ADL's. Rehabilitation Potential: Fair Anticipated Interventions Patient/Client Instruction: Educate patient on: Benefits of Fitness Program Therapeutic Exercise to Include: Strength training, Endurance training, Balance training, Coordination, Agility training, Body mechanics, Postural training, Flexibilty training, Gait and locomotor training, Neuromotor development, In an aquatic setting, Passive ROM, Active ROM, Dynamic Lumbar Stabilization and Scapular Strength/Stabilization For the Purpose of:: To improve muscle performance and motor function Text: Thank you for the opportunity to evaluate your patient. For Medicare and Medicare HMO plans, please review the plan of care and approve it. It will need to be FAXED BACK to us at [phone] for Medicare purposes. For Medicare only, by signing this I certify the plan of care. Please let me know if there are questions or concerns regarding this plan of care. Physician Signature: Date:
--- NOTE | 2022-12-15 16:20 | HP.PTREVAL ---
Re-Evaluation Intro: Dr. Jessee Whitmore, DO, It has been my pleasure to treat JACINDA ISBELL over the last 9 visits for Facet Arthrosis. Please see the progress note below for an update on the physical therapy plan of care! 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 She feels the pool has been really helpful. 25-30%- she feels that she would like to do one pool and one land- so she can do both since she needs to have the transition piece. Objective Objective/Function: Posture: FH, RS- can correct with verbal cues but is unable to maintain in both sitting and standing Gait: mild forward posture- no deviation noted - good nan- good trunk rotation and arm swing HR/TR: able with UE A SLS: 15 sec with mild hip drop- reports more stability on the left LE Sit to Stand: no UE A to rise from chair Sensation: WNL to gross touch bilateral LE Reflex: WFL to patella ROM: Lumbar hands to knees with pain, extn: wfl, SB and rotation: WFL pain with sb to the right Hip: WFL no pain Strength: Core: fair minus Hip: R4+/5 , Knee: 4+/5, Ankle: 5/5. Palpation: tender along great right paraspinals and spinous process of the lumbar spine with PA glides Flex: HS: mod, Gastroc: mod Stairs: asc/desc recip with 1 HR- poor control with descent Special Tests L/S Slump test left side: Negative L/S Slump test right side: Positive L/S Left Straight Leg Raise: Negative L/S Right Straight Leg Raise: Positive R Hip Scour: Negative R Hip LATHA - Intraarticular Pathology: Negative R Hip FADDIR - Labrum: Negative R Hip Impingement Provocation - Labrum: Negative L Hip Scour: Negative L Hip LATHA - Intraarticular Pathology: Negative L Hip FADDIR - Labrum: Negative L Hip Impingement Provocation - Labrum: Negative Plan Plan Plan: 1x a week land PT and 1x a week aquatics Aquatics- focus on LE and core strength/stabilization- minimalize radicular s/s Balance/Gait/Functional tests Balance/Special Test Scores Oswestry Low Back Score: 7 Goals Goals Goal 1:: Patient will be I with HEP and progression Goal Time Frame: 4-6 Weeks Goal Progress: Progressing Goal 2:: Patient will maintain proper posture t/o tx session to demo increased core s/s Goal Time Frame: 4-6 Weeks Goal Progress: Progressing Goal 3:: Patient will report 80% improvement Goal Time Frame: 4-6 Weeks Goal Progress: Progressing Goal 4:: Patient will report no radicular s/s for 1 week Goal Time Frame: 4-6 Weeks Goal Progress: Progressing Anticipated Interventions Anticipated Interventions Patient/Client Instruction: Educate patient on: Benefits of Fitness Program Therapeutic Exercise to Include: Strength training, Endurance training, Balance training, Coordination, Agility training, Body mechanics, Postural training, Flexibilty training, Gait and locomotor training, Neuromotor development, In an aquatic setting, Passive ROM, Active ROM, Dynamic Lumbar Stabilization and Scapular Strength/Stabilization For the Purpose of:: To improve muscle performance and motor function Re-Evaluation Ending Re-evaluation ending: Please do not hesitate to contact me at [phone] by phone or if you have questions or concerns regarding this new plan of care! Sincerely, Hali Dahl DPT
--- NOTE | 2023-01-15 13:42 | HP.PTDCSUM ---
Discharge Summary D/C summary: It has been my pleasure to treat JACINDA ISBELL referred by Dr. Jessee Whitmore DO, with the diagnosis of Facet Arthrosis for a total of 15 visit(s). Discharge Date: Please see the following information for a summary of their discharge status. Subjective Subjective: Patient that her back is pretty good. She is not really having any pain- she can ride in the car for a distance but she went 1.5 hours- she got out and walked around due to the right leg and low back bothers her when she was driving. She feels that she is 90% better. She feels that she is ready to be discharged from PT and continue with a home exercise program with [facility] and she has a paper with her weights on it. Pain Bilateral Lower Extremity: Pain Intensity (Out of 10): 0 WHOLE BODY: Pain Intensity (Out of 10): 4 Overall Improvement % Improvement: 90 Objective Objective/Function: Posture: good in sitting both chair and on plinth Gait: fair posture- no deviation noted - good nan- good trunk rotation and arm swing HR/TR: able with UE A SLS: 15 sec bilateral Sit to Stand: no UE A to rise from chair Sensation: WNL to gross touch bilateral LE Reflex: WFL to patella ROM: Lumbar hands to ankles, extn: wfl, SB and rotation: WFL Hip: WFL no pain Strength: Core: fair Hip: 4+/5 , Knee: 5/5, Ankle: 5/5. Palpation: tender along great right paraspinals and spinous process of the lumbar spine with PA glides Flex: HS: mod, Gastroc: mod Stairs: asc/desc recip with 1 HR Goals Goal 1:: Patient will be I with HEP and progression Goal Progress: Goal Met Goal 2:: Patient will maintain proper posture t/o tx session to demo increased core s/s Goal Progress: Goal Met Goal 3:: Patient will report 80% improvement Goal Progress: Goal Met Goal 4:: Patient will report no radicular s/s for 1 week Goal Progress: Goal Met Plan Plan: 01/15/23: Discharge to I HEP- pt has exercise sheet and did not have any questions 1x a week land PT and 1x a week aquatics Aquatics- focus on LE and core strength/stabilization- minimalize radicular s/s D/C Information d/c sentence: If there are questions or concerns regarding this patient's physical therapy, please feel free to call me at [phone]. Thank you for the referral of this patient. Sincerely, Hali Dahl, DPT Balance/Gait/Functional tests Balance/Special Test Scores Oswestry Low Back Score: 2 Improvement % Improvement: 90
== END 2023-01-15 14:10 | disposition home or self-care (01) ==
LOC: PT 13:30
PROVIDERS: PCP Family Medicine; Referring Provider Orthopaedic Surgery; Visit Provider Orthopaedic Surgery
DX: M47.816 Spondylosis without myelopathy or radiculopathy, lumbar region (principal)
CPT/HCPCS: 97110; 97113; 97162; 97164

== ENCOUNTER 2023-09-09 13:32 | Emergency (ER) | payer OTHER, SELFPAY ==
[2023-09-09 13:34] VITALS: BP 152/103; PULSE 77; RESP 18; TEMP 35.8; O2SAT 100; BMI 37.5
--- NOTE | 2023-09-09 13:35 | EKG12_ITS ---
Test Reason : PALPS Blood Pressure : / mmHG Vent. Rate : 075 BPM Atrial Rate : 075 BPM P-R Int : 148 ms QRS Dur : 080 ms QT Int : 402 ms P-R-T Axes : 046 013 -02 degrees QTc Int : 448 ms Normal sinus rhythm Normal ECG Confirmed by Murali Champagne ([id number]), photographic editor GABRIELA REZA ([id number]) on 09/14/2023 9:40:20 AM Referred By: Confirmed By:Murali Champagne
--- NOTE | 2023-09-09 13:35 | ED.VIS.CHEST ---
HPI History of Present Illness Chief Complaint: Palpitations [facility] Medical History Acute sinusitis, unspecified Adverse effect of unspecified drugs, medicaments and biological substances, initial encounter Allergic rhinitis with postnasal drip Asthma Bilateral renal artery stenosis Bulging lumbar disc Bulging of cervical intervertebral disc Chest pain, unspecified Cough Elevated C-reactive protein Encounter for screening for COVID-19 Essential hypertension Fibromyalgia Fibromyalgia History of Holter monitoring (~02/2017) Malaise and fatigue Palpitations Premature atrial contraction Premature ventricular contraction Restrictive airway disease Right ankle sprain Right foot sprain Segmental and somatic dysfunction of cervical region Segmental and somatic dysfunction of lumbar region Segmental and somatic dysfunction of thoracic region Thyroid disorder Type 2 diabetes mellitus Home Medications ?Medication ?Instructions ?Recorded ?Last Taken ?Type cyanocobalamin (vitamin B-12) 500 500 mcg PO DAILY 06/05/22 Unknown History mcg tablet levothyroxine 125 mcg tablet 125 mcg PO DAILY 06/05/22 Unknown History metaxalone 800 mg tablet 800 mg PO TID 7 days #21 tabs 10/27/22 Unknown Rx ibuprofen 600 mg tablet 600 mg PO Q8H PRN 11/10/22 Unknown History omega 7-prp-vso-fish oil 60 mg-90 1 cap PO DAILY 11/10/22 Unknown History mg-500 mg capsule (Fish Oil) turmeric 400 mg capsule mg PO 11/10/22 Unknown History azithromycin 250 mg tablet 250 mg PO QDAY #12 tabs 01/06/23 Unknown Rx Allergy/AdvReac Type Severity Reaction Status Date / Time amoxicillin Allergy Hives Verified 09/09/23 13:34 aspirin Allergy Unknown Verified 09/09/23 13:34 hydrocodone bitartrate (From Allergy Swelling Verified 09/09/23 13:34 Vicodin) Sulfa (Sulfonamide Allergy Hives Verified 09/09/23 13:34 Antibiotics) duloxetine (From Cymbalta) AdvReac Severe Hives & Verified 09/09/23 13:34 dyspnea, to both generaic & Brand meloxicam AdvReac Intermediate Hives Verified 09/09/23 13:34 fluticasone (From Flovent AdvReac chest Verified 09/09/23 13:34 Diskus) shaky made me feel really weird Penicillins AdvReac Upset Verified 09/09/23 13:34 Stomach Family History Mother Hypertension Diabetes Cancer Sister Diabetes Brother Diabetes Surgical History History of cholecystectomy History of hysterectomy History of Buster fundoplication Hx of bladder repair surgery S/P Buster fundoplication (without gastrostomy tube) procedure Social History Smoking Status: Never smoker alcohol intake: never substance use type: does not use caffeine: No EXAM Physical Exam Const Vital Signs: 09/09/23 13:34 Temperature 96.5 F L Temperature Source Temporal Pulse Rate 77 Respiratory Rate 18 Blood Pressure 152/103 H Blood Pressure Mean 119 Pulse Ox 100 Oxygen Delivery Method Room Air MDM MDM MDM Narrative Medical decision making narrative: HISTORY OF PRESENT ILLNESS: 48-year-old female who complains of palpitations for ~2 days. She notes she felt her heart racing earlier prior to arrival. Notes this resolved spontaneously. Notes 2 episodes of watery stool today. Denies recent travel or surgery. Denies recent antibiotics. There is no melena or hematochezia noted. Denies vomiting. Denies cough fever chills. Denies chest pain. Denies leg swelling. The patient denies recent surgery in the last 4 weeks or immobilization in the last 3 days, denies previous diagnosis of DVT or PE, hemoptysis, unilateral leg swelling or malignancy with treatment the last 6 months or palliative. No estrogen use noted. REVIEW OF SYSTEMS: Pertinent positives: Palpitations Pertinent negatives: Chest pain, shortness of breath, syncope, bleeding diathesis or volume loss PHYSICAL EXAM: Nursing triage notes reviewed, Vital signs reviewed Constitutional: please see mdm HENT: MMM Eyes: Pupils equal round and reactive to light, Extraocular muscles intact Neck: No stridor, no JVD, full neck ROM Lungs: Clear to auscultation, No wheezing or rales. No increased work of breathing, no conversational dyspnea, no accessory muscle use, no nasal flaring. No respiratory distress noted Heart: Regular rate and rhythm, No murmurs, No rubs and No gallops, 2+ distal pulses (radial, femoral, posterior tibial) in all extremities Abdomen: Soft, there is no tenderness, rigidity, rebound or guarding, no obvious peritoneal signs, no palpable pulsatile abdominal masses, no auscultated abdominal bruit : No CVAT Extremities: No edema Neuro: No focal neurological deficits, cranial nerves II through XII intact, 5/5 strength in all extremities. Intact sensation to light touch in all extremities, 2+ reflexes bilateral patella tendons. Normal gait. No ataxia. Skin: No rash or lesions noted MEDICAL DECISION MAKING: Chief Complaint: palpitations External records reviewed: Reviewed prior Holter monitor report from 2017. 24-hour Holter monitor showed normal sinus rhythm. There is no activity or symptoms recorded, low heart rates of 59 high heart rates 122 average was 82 Factors affecting care: fibromyalgia, type 2 diabetes, premature ventricular contractions, premature atrial contractions, Social determinants of health: none History obtained from others: none Consults: none MDM Narrative: Patient was hemodynamically stable, afebrile nontoxic-appearing. Exam without focal cardiopulmonary maladies. Regular rate and rhythm I considered the following differential diagnosis: Arrhythmia, myocardial ischemia, anemia, electrolyte disturbance, thyrotoxicosis There were no vital sign abnormalities or physical exam findings such as proptosis suggest thyrotoxicosis. ALL IMAGES (IF OBTAINED) HAVE BEEN PERSONALLY REVIEWED AND INTERPRETED BY MYSELF. EKG with normal sinus rhythm, normal axis, no intervals, no STEMI CBC without leukocytosis, severe anemia, no thrombocytopenia. BMP without evidence of significant electrolyte abnormalities, no anion gap, no acute kidney injury. The synthesis of the patient's history, physical exam, labs suggest no acute life-limiting etiology specifically no signs of arrhythmia, electro disturbance or significant dehydration. She is encouraged to take p.o. intake for every loose stool and to follow with her primary care doctor for outpatient evaluation. The patient and/or family, caregivers express understanding. The patient and/or family, caregivers agrees with the plan. Shared decision making: I will have a discussion with the patient and or visitors regarding risk/benefits of further testing or admission. They will be made aware of of the risk/benefits inherent in this decision they will be given the opportunity to voice understanding. Total critical care time today provided was at least 0 minutes. This excludes separately billable procedures. Critical care time (if documented) is secondary to the patient having high probability of clinically significant/life threatening deterioration in the patient's condition which required my urgent intervention. Impression: 1. Palpitations Dispo: Discharge home This note was generated with Dragon dictation software. It may contain incorrect words, spelling, and punctuation that were not noted in review of the chart prior to signing. Lab Data Labs: Laboratory Results - last 24 hr 09/09/23 13:45 WBC 7.7 RBC 4.85 Hgb 14.0 Hct 43.3 MCV 89.3 MCH 28.9 MCHC 32.3 RDW Std Deviation 40.8 RDW Coeff of Chio 12.4 Plt Count 324 MPV 9.7 Immature Gran % (Auto) 0.500 Neut % (Auto) 49.0 Lymph % (Auto) 36.3 [place] % (Auto) 11.5 H Eos % (Auto) 1.9 Baso % (Auto) 0.8 Absolute Neuts (auto) 3.8 Absolute Lymphs (auto) 2.80 Nucleated RBC % 0 Sodium 137 Potassium 3.7 Chloride 104 Carbon Dioxide 28.0 Anion Gap 5 BUN 14 Creatinine 0.73 Estim Creat Clear Calc 107.98 Est GFR (MDRD) Af Amer 109 Est GFR (MDRD) Non-Af 90 BUN/Creatinine Ratio 19.1 Glucose 99 Calcium 9.7 Discharge Plan Triage Chief Complaint: Palpitations ED Provider: Darnell Miles Dx/Rx/DC Orders Prescriptions: No Action levothyroxine 125 mcg tablet 125 mcg PO DAILY cyanocobalamin (vitamin B-12) 500 mcg tablet 500 mcg PO DAILY omega 8-oou-uib-fish oil [Fish Oil] 60-90-500 mg capsule 1 cap PO DAILY turmeric 400 mg capsule PO ibuprofen 600 mg tablet 600 mg PO Q8H PRN azithromycin 250 mg tablet 250 mg PO QDAY Qty: 12 0RF Rx Instructions: 2 tablets today, then 1 tablet daily on days 2 through 11 metaxalone 800 mg tablet 800 mg PO TID 7 Days Qty: 21 0RF Primary Care Provider: Franc Salinas Referrals: Franc Salinas DO [Primary Care Provider] - Print Language: [place]
[2023-09-09 13:57] LABS: Absolute Neutrophil Count 3.8 X10^3/uL (2.0-7.7); Basophil# 0.06 X10^3/uL; Basophil% 0.8 % (0-1); Eosinophil# 0.15 X10^3/uL; Eosinophils% 1.9 % (0-5); Hematocrit 43.3 % (37-47); Lymphocyte % 36.3 % (19-41); Mean Corp Hgb Conc 32.3 g/dL (32-36); Mean Corpuscular Hgb 28.9 pg (27.0-32.0); Mean Corpuscular Volume 89.3 fL (81-99); Mean Platelet Vol. 9.7 fl (6.2-12.0); Monocyte# 0.89 X10^3/uL; Monocyte% 11.5 % (0-10); NRBC Flagged by Analyzer 0 % (0-5); Neutrophil # 3.78 X10^3/uL (2.7-7.7); Platelet Count 324 K/mm3 (150-450); RBC Distribution Width CV 12.4 % (11.6-14.6); RBC Distribution Width SD 40.8 fl (35.1-43.9); Red Blood Count 4.85 M/mm3 (4.2-5.4); White Blood Count 7.7 K/mm3 (4.4-11.0)
[2023-09-09 14:11] LABS: Anion Gap 5 (5-15); BUN 14 mg/dL (7-18); BUN/Creat Ratio 19.1 RATIO (10-20); Calcium,Total 9.7 mg/dL (8.5-10.1); Chloride 104 mmol/L (98-107); Creatinine, Serum 0.73 mg/dL (0.55-1.02); EST Glomerular Filtration Rate 90 mL/min (>60); Est Glom Filt Rate - Afr Amer 109 mL/min (>60); Estimated Creatinine Clearance 107.98 ml/min; Glucose 99 mg/dL (74-106); Potassium 3.7 mmol/L (3.5-5.1); Sodium Level 137 mmol/L (136-145)
[2023-09-09] MEDS: 0.9% Normal Saline (500mL Bag) 500 ML 999 ML IV (14:25)
[2023-09-09 14:37] VITALS: BP 161/87; PULSE 77; RESP 16; TEMP 36.3; O2SAT 98
== END 2023-09-09 14:37 | disposition home or self-care (01) ==
PROVIDERS: Emergency Provider Emergency Medicine; PCP Family Medicine; Visit Provider Emergency Medicine
DX: R00.2 Palpitations (principal); E11.9 Type 2 diabetes mellitus without complications; I49.1 Atrial premature depolarization; I49.3 Ventricular premature depolarization; M79.7 Fibromyalgia; J45.909 Unspecified asthma, uncomplicated; I10 Essential (primary) hypertension
CPT/HCPCS: 80048; 85025; 93005; 99282; J7040; A4216

== ENCOUNTER → 2024-02-11 | Outpatient (CLI) | payer OTHER, SELFPAY ==
[2024-02-11 18:38] LABS: Anion Gap 4 (5-15); BUN 10 mg/dL (7-18); BUN/Creat Ratio 13.2 RATIO (10-20); CPK Total, Creatine Kinase 130 U/L (26-192); Calcium,Total 9.5 mg/dL (8.5-10.1); Chloride 104 mmol/L (98-107); Creatinine, Serum 0.76 mg/dL (0.55-1.02); EST Glomerular Filtration Rate 87 mL/min (>60); Est Glom Filt Rate - Afr Amer 105 mL/min (>60); Glucose 109 mg/dL (74-106); Magnesium 2.4 mg/dL (1.6-2.6); Potassium 3.9 mmol/L (3.5-5.1); Sodium Level 137 mmol/L (136-145)
== END | disposition home or self-care (01) ==
PROVIDERS: PCP Family Medicine; Referring Provider Family Medicine; Visit Provider Family Medicine
DX: E03.9 Hypothyroidism, unspecified (principal); R25.2 Cramp and spasm
CPT/HCPCS: 36415; 80048; 82550; 83735; 84439; 84443

== ENCOUNTER 2024-09-22 18:06 | Emergency (ER) | payer OTHER, SELFPAY ==
[2024-09-22] VITALS (22 sets, daily range): BP systolic 147–185; BP diastolic 71–93; PULSE 70–92; RESP 11–19; TEMP 36.5–36.6; O2SAT 93–100; BMI 40.6
--- NOTE | 2024-09-22 18:13 | EKG12_ITS ---
Test Reason : CP Blood Pressure : */* mmHG Vent. Rate : 81 BPM Atrial Rate : 81 BPM P-R Int : 160 ms QRS Dur : 76 ms QT Int : 372 ms P-R-T Axes : 37 4 -13 degrees QTcB Int : 432 ms Normal sinus rhythm Minimal voltage criteria for LVH, may be normal variant ( R in aVL ) Nonspecific T wave abnormality Abnormal ECG Confirmed by Murali Champagne ([id number]), web content editor GABRIELA REZA ([id number]) on 09/26/2024 10:41:03 AM Referred By: Kash Andrade Confirmed By: Murali Champagne
--- NOTE | 2024-09-22 18:42 | RAD_ITS ---
PROCEDURE: CHEST PA AND LATERAL 09/22/2024 REASON FOR EXAM: CHEST PAIN TECHNIQUE: Frontal and lateral views of the chest. COMPARISON: None. FINDINGS: The heart is normal in size. The mediastinum is normal in contour. The lungs are clear. No acute osseous abnormalities. RAD/Chest PA and Lateral IMPRESSION: NO ACUTE FINDINGS. Reading Location: [place] [id number]
[2024-09-22 19:10] LABS: Absolute Lymphocyte Count 3.85 X10^3/uL (0.83-4.51); Absolute Neutrophil Count 4.6 X10^3/uL (2.0-7.7); Basophil# 0.07 X10^3/uL; Basophil% 0.7 % (0-1); Eosinophil# 0.15 X10^3/uL; Eosinophils% 1.6 % (0-5); Hematocrit 43.8 % (37-47); Hemoglobin 14.8 g/dL (12.0-15.0); Lymphocyte # 3.85 X10^3/ul (0.83-4.51); Lymphocyte % 39.9 % (19-41); Mean Corp Hgb Conc 33.8 g/dL (32-36); Mean Corpuscular Volume 88.7 fL (81-99); Mean Platelet Vol. 10.1 fl (6.2-12.0); Monocyte# 0.97 X10^3/uL; Monocyte% 10.1 % (0-10); NRBC Flagged by Analyzer 0 % (0-5); Neutrophil # 4.55 X10^3/uL (2.7-7.7); Neutrophil % 47.1 % (47-70); Platelet Count 304 K/mm3 (150-450); RBC Distribution Width CV 12.3 % (11.6-14.6); RBC Distribution Width SD 39.6 fl (35.1-43.9); Red Blood Count 4.94 M/mm3 (4.2-5.4); White Blood Count 9.7 K/mm3 (4.4-11.0)
[2024-09-22 19:28] LABS: Anion Gap 15 (5-15); BUN 8 mg/dL (4-19); BUN/Creat Ratio 10.5 RATIO (10-20); Calcium,Total 9.5 mg/dL (7.6-11.0); Carbon Dioxide 20.3 mmol/L (21.0-32.0); Chloride 101 mmol/L (98-108); EST Glomerular Filtration Rate 91 (>60); Estimated Creatinine Clearance 101.82 ml/min (50-250); Glucose 111 mg/dL (70-99); Potassium 3.8 mmol/L (3.3-5.1); Sodium Level 136 mmol/L (133-145); Troponin T High Sensitivity < 6 ng/L (<=14)
--- NOTE | 2024-09-22 19:41 | CT_ITS ---
PROCEDURE: ABDOMEN/PELVIS W IV CONT ONLY 09/22/2024 REASON FOR EXAM: ABD PAIN TECHNIQUE: Abdomen and pelvis CT with intravenous contrast. Coronal and Sagittal reconstruction series were provided. CONTRAST: Isovue 370 VOLUME: 93 mL. One or more dose reduction techniques were used (e.g., Automated exposure control, adjustment of the mA and/or kV according to patient size, use of iterative reconstruction technique. RADIATION DOSE SUMMARY: CTDlvol: 9.97+ 22.87 mGy DLP: 1184.78 mGycm COMPARISON: 04/16/2020. FINDINGS: Lung bases: Clear. Liver: Hypodense liver suggestive of steatosis. Gallbladder: Surgically absent. Spleen: Normal size. Pancreas: Normal size without evidence of mass surrounding inflammation or ductal dilation. Adrenals: Normal. Kidneys: Normal renal sizes. No hydronephrosis. Bladder: Normal. Reproductive Organs: Surgically absent uterus. Bowel: Postsurgical changes of the proximal stomach. Normal caliber large and small bowel. Lymph nodes: No suspicious lymph node enlargement. Vasculature: The abdominal aorta and IVC are normal. Peritoneum / Retroperitoneum: Normal Bones: Unremarkable. CT/Abdomen/Pelvis W IV Cont ONLY IMPRESSION: NO ACUTE FINDINGS AT THE ABDOMEN OR PELVIS ON CONTRAST-ENHANCED CT. Reading Location: [id number]
[2024-09-22 20:44] LABS: Lipase 26 U/L (13-75)
[2024-09-22 20:47] LABS: AST(SGOT) 33 U/L (<=31); Alanine Aminotransfer ALT/SGPT 35 U/L (<=34); Albumin, Serum 4.3 g/dL (3.5-5.0); Alkaline Phosphatase 80 U/L (35-104); Bilirubin, Direct 0.09 mg/dL (0.00-0.30); Protein, Total 7.3 g/dL (5.9-8.4); Total Bilirubin 0.27 mg/dL (0.00-1.30)
--- NOTE | 2024-09-22 21:45 | EDS_ITS ---
HPI History of Present Illness Chief Complaint: Chest Pain Narrative Narrative: Patient is a 49-year-old female past medical history of hypertension, type 2 diabetes, fibromyalgia, thyroid disorder, BMI of 40.7 who presented to the emerged part with chief complaint of chest pain. Patient states that since yesterday evening she started to develop acid like reflux symptoms and chest discomfort. States that when she gets up and moves around she develops worsening chest pain on the left side of her chest that radiates to her jaw and she states that this gets better when she sits down to rest. She states that she was not feeling well overall last night and states that she took acid reflux medication and went to bed. States that when she woke up again this morning when she was try to get ready to take the kids to school and help them get ready she developed chest pain again which got better with rest. Patient states that she has also noted that she has a lot of belching as well she states that she is passing gas. Patient states that she did have a hiatal hernia repair in the past. Patient notes that she has not had a stress test in several years [facility] Medical History Acute sinusitis, unspecified Encounter for screening for COVID-19 Right foot sprain Right ankle sprain Asthma Type 2 diabetes mellitus Essential hypertension Bilateral renal artery stenosis Bulging of cervical intervertebral disc Bulging lumbar disc Segmental and somatic dysfunction of lumbar region Segmental and somatic dysfunction of thoracic region Segmental and somatic dysfunction of cervical region Allergic rhinitis with postnasal drip Cough Restrictive airway disease Premature ventricular contraction Premature atrial contraction Malaise and fatigue Adverse effect of unspecified drugs, medicaments and biological substances, initial encounter Elevated C-reactive protein Fibromyalgia Thyroid disorder Chest pain, unspecified History of Holter monitoring (~02/2017) Fibromyalgia Palpitations Home Medications ?Medication ?Instructions ?Recorded ?Last Taken ?Type cyanocobalamin (vitamin B-12) 500 500 mcg PO DAILY 01/17 Unknown History mcg tablet levothyroxine 125 mcg tablet 125 mcg PO DAILY 06/05/22 Unknown History metaxalone 800 mg tablet 800 mg PO TID 7 days #21 tab s 10/27/22 Unknown Rx ibuprofen 600 mg tablet 600 mg PO Q8H PRN 11/10/22 U nknown History omega 7-lsc-xxo-fish oil 60 mg-90 1 cap PO DAILY 11/10 Unknown History mg-500 mg capsule (Fish Oil) turmeric 400 mg capsule mg PO 11/10/22 Unknown Histo ry azithromycin 250 mg tablet 250 mg PO QDAY #12 tabs 04/18 Unknown Rx pantoprazole 40 mg tablet,delayed 40 mg PO DAILY #30 t abs 09/22/24 Unknown Rx release (Protonix) Allergy/AdvReac Type Severity Reaction Status Date / Time amoxicillin Allergy Hives Verified 09/22/24 18:08 aspirin Allergy Unknown Verified 09/22/24 18:08 hydrocodone bitartrate (From Allergy Swelling Verified 09/22/24 18:08 Vicodin) Sulfa (Sulfonamide Allergy Hives Verified 09/22/24 18:08 Antibiotics) duloxetine (From Cymbalta) AdvReac Severe Hives & Verified 09/22/24 18:08 dyspnea, to both generaic & Brand meloxicam AdvReac Intermediate Hives Verified 09/22/24 18:08 fluticasone (From Flovent AdvReac chest Verified 09/22/24 18:08 Diskus) shaky made me feel really weird Penicillins AdvReac Upset Verified 09/22/24 18:08 Stomach Family History Mother Hypertension Diabetes Cancer Sister Diabetes Brother Diabetes Surgical History Hx of bladder repair surgery History of Buster fundoplication History of hysterectomy S/P Buster fundoplication (without gastrostomy tube) procedure History of cholecystectomy Social History Smoking Status: Never smoker alcohol intake: never substance use type: does not use caffeine: No ROS ROS ED ROS Narrative Constitutional: Denies any fevers, chills mellitus, dizziness Eyes: Denies change in vision double vision blurry vision Cardiovascular: Claims chest pain as noted above denies palpitations Respiratory: Denies coughing wheezing shortness of breath Abdomen: Denies abdominal pain nausea vomit diarrhea : Denies urinary symptoms Neurological: Denies numbness, tingling Musculoskeletal: Denies back pain Skin: Denies rashes or lesions EXAM Physical Exam Narrative Exam Narrative: General: Patient lying in bed rest comfortably did not appear to be in acute distress Head: Atraumatic, normocephalic Eyes: PERRL bilaterally, EOMI bilaterally, no conjunctival injection noted Neck: Soft, supple, trachea midline Cardiovascular: Regular rate and rhythm Respiratory: Clear to auscultation bilaterally Abdomen: Soft, nondistended, nontender to palpation Extremities: Radial pulses +2/4 in the bilateral extremity, no pedal edema on exam, +5/5 strength noted in the bilateral upper and lower extremities Neurological: Patient following commands knew that she was at [facility] years 2024 Skin: Warm, dry, intact no rashes or lesions noted Const Vital Signs: 09/22/24 18:07 09/22/24 18:20 09/22/24 18:36 Temperature 97.7 F L Temperature Source Oral Pulse Rate 92 Respiratory Rate 19 H Respiratory Pattern Normal Blood Pressure 157/93 H 185/84 H Blood Pressure Mean 114 110 Pulse Ox 99 Oxygen Delivery Method Room Air 09/22/24 18:38 09/22/24 18:39 09/22/24 18:46 Temperature Temperature Source Pulse Rate 81 78 Respiratory Rate 12 13 Respiratory Pattern Blood Pressure Blood Pressure Mean Pulse Ox 97 97 Oxygen Delivery Method Room Air 09/22/24 18:55 09/22/24 19:00 09/22/24 19:15 Temperature Temperature Source Pulse Rate 79 78 77 Respiratory Rate 17 14 11 L Respiratory Pattern Blood Pressure 173/82 H 157/71 H Blood Pressure Mean 107 93 Pulse Ox 98 98 98 Oxygen Delivery Method Room Air Room Air 09/22/24 19:30 09/22/24 19:30 09/22/24 19:30 Temperature Temperature Source Pulse Rate 75 Respiratory Rate 11 L Respiratory Pattern Blood Pressure 149/71 H 149/71 H 149/71 H Blood Pressure Mean 89 89 89 Pulse Ox 98 Oxygen Delivery Method Room Air 09/22/24 19:45 09/22/24 20:00 09/22/24 20:00 Temperature Temperature Source Pulse Rate 85 76 76 Respiratory Rate 17 13 12 Respiratory Pattern Blood Pressure 155/84 H 147/84 H Blood Pressure Mean 107 102 Pulse Ox 99 95 95 Oxygen Delivery Method Room Air 09/22/24 20:15 09/22/24 20:30 09/22/24 20:45 Temperature Temperature Source Pulse Rate 76 76 78 Respiratory Rate 14 11 L 16 Respiratory Pattern Blood Pressure 155/84 H Blood Pressure Mean 103 Pulse Ox 96 95 95 Oxygen Delivery Method Room Air 09/22/24 21:00 09/22/24 21:00 09/22/24 21:15 Temperature Temperature Source Pulse Rate 83 77 73 Respiratory Rate 17 11 L 17 Respiratory Pattern Blood Pressure 151/82 H 151/82 H Blood Pressure Mean 105 104 Pulse Ox 98 94 93 Oxygen Delivery Method 09/22/24 21:30 09/22/24 21:45 09/22/24 22:00 Temperature Temperature Source Pulse Rate 73 71 77 Respiratory Rate 14 14 14 Respiratory Pattern Blood Pressure 166/78 H Blood Pressure Mean 107 Pulse Ox 97 97 97 Oxygen Delivery Method 09/22/24 22:15 09/22/24 22:30 09/22/24 22:45 Temperature Temperature Source Pulse Rate 74 70 73 Respiratory Rate 14 11 L 13 Respiratory Pattern Blood Pressure Blood Pressure Mean Pulse Ox 96 96 97 Oxygen Delivery Method MDM MDM MDM Narrative Medical decision making narrative: Patient is a 49-year-old female who presents to the emergency department chief complaint of chest pain as noted above. On the differential diagnose includes but not limited to ACS, stable angina, bowel obstruction. Once workup is obtained reviewed she will be reevaluated. Melvin Score (Revised) for Pulmonary Embolism from [employer] on 09/22/2024 All calculations should be rechecked by clinician prior to use RESULT SUMMARY: 3 points Low risk group: 7-9% incidence of PE from several studies. INPUTS: Age >65 ?> 0 = No Previous DVT or PE ?> 0 = No Surgery (under general anesthesia) or lower limb fracture in past month ?> 0 = No Active malignant condition ?> 0 = No Unilateral lower limb pain ?> 0 = No Hemoptysis ?> 0 = No Heart rate ?> 3 = 75-94 Pain on lower limb palpation and unilateral edema ?> 0 = No HEART Score for Major Cardiac Events from [employer] on 09/22/2024 All calculations should be rechecked by clinician prior to use RESULT SUMMARY: 5 points Moderate Score (4-6 points) Risk of MACE of 12-16.6%. INPUTS: History ?> 1 = Moderately suspicious EKG ?> 1 = Non-specific repolarization disturbance Age ?> 1 = 45-64 Risk factors ?> 2 = >= risk factors or history of atherosclerotic disease Initial troponin ?> 0 = <=ormal limit Patient's CBC was reviewed showed no evidence of leukocytosis white blood count normal 9.7, hemoglobin 14.8, platelet count was 304. Patient sodium was 136, potassium normal 3.8, creatinine was 0.80. Patient's AST and ALT were 33 and 35 respectively, troponin was less than 6 with a delta troponin less than 6 as well, EKG reviewed showed sinus rhythm with a rate of 81 bpm this was compared to previous EKG from September 09, 2023 and was largely unchanged. Patient's lipase normal at 26. Patient CT abdomen pelvis with IV contrast was reviewed which showed no acute findings. Patient chest x-ray reviewed by myself by radiology showed no acute cardiopulmonary processes. Given the patient's risk factors and heart score of 5 with her symptoms of chest pain with exertion that gets better with rest do believe she would warrant admission for a stress test will discuss case with hospitalist for admission. Called and spoke with hospitalist Dr. Alvarez who states that he would recommend discussing with cardiology as he does not feel based on her story that she requires admission. I called and discussed the case with on-call client finance analyst Dr. White who states that the patient can have a stress test in the outpatient setting and return for worsening symptoms or concerns. I discussed this plan with the patient she is comfortable with this plan she like to go home all question concerns answered she is discharged home in stable condition. The patient states that she is not on omeprazole daily she states that she just took it [address] her on Protonix daily. All question concerns answered she is discharged home in stable condition Lab Data Labs: Laboratory Results - last 24 hr 09/22/24 09/22/24 09/22/24 18:36 18:36 19:00 WBC Cancelled 9.7 Corrected WBC Cancelled RBC Cancelled 4.94 Hgb Cancelled 14.8 Hct Cancelled 43.8 MCV Cancelled 88.7 MCH Cancelled 30.0 MCHC Cancelled 33.8 RDW Std Deviation Cancelled 39.6 RDW Coeff of Chio Cancelled 12.3 Plt Count Cancelled 304 MPV Cancelled 10.1 Immature Gran % (Auto) Cancelled 0.600 Neut % (Auto) Cancelled 47.1 Lymph % (Auto) Cancelled 39.9 Treasure % (Auto) Cancelled 10.1 H Eos % (Auto) Cancelled 1.6 Baso % (Auto) Cancelled 0.7 Absolute Neuts (auto) Cancelled 4.6 Absolute Lymphs (auto) Cancelled 3.85 Total Counted Cancelled Neutrophils % (Manual) Cancelled Band Neutrophils % Cancelled Lymphocytes % (Manual) Cancelled Monocytes % (Manual) Cancelled Eosinophils % (Manual) Cancelled Basophils % (Manual) Cancelled Metamyelocytes % Cancelled Myelocytes % Cancelled Promyelocytes % Cancelled Blast Cells % Cancelled Plasma Cell % (Manual) Cancelled Other Cells % Cancelled Nucleated RBC % Cancelled 0 Nucleated RBCs/100 WBC Cancelled Differential Comment Cancelled Diff Path Review Cancelled Hypersegmented Neuts Cancelled Atypical Lymphocytes Cancelled Reactive Lymphocytes Cancelled Smudge Cells Cancelled Toxic Granulation Cancelled Toxic Vacuolation Cancelled Dohle Bodies Cancelled Giancarlo Rods Cancelled Platelet Estimate Cancelled Plt Morphology Comment Cancelled RBC Morphology Cancelled Cancelled Polychromasia Cancelled Hypochromasia Cancelled Basophilic Stippling Cancelled Anisocytosis Cancelled Microcytosis Cancelled Macrocytosis Cancelled Spherocytes Cancelled Sickle Cells Cancelled Target Cells Cancelled Tear Drop Cells Cancelled Ovalocytes Cancelled Stomatocytes Cancelled Thapa-Hubbard Bodies Cancelled Candelario Cells Cancelled Bite Cells Cancelled Crenated Cell Cancelled Acanthocytes (Spur) Cancelled Rouleaux Cancelled Schistocytes Cancelled Sodium Cancelled 136 Potassium Cancelled 3.8 Chloride Cancelled 101 Carbon Dioxide Cancelled 20.3 L Anion Gap Cancelled 15 BUN Cancelled 8 Creatinine Cancelled 0.80 Estim Creat Clear Calc Cancelled 101.82 Est GFR (MDRD) Non-Af Cancelled 91 BUN/Creatinine Ratio Cancelled 10.5 Glucose Cancelled 111 H Calcium Cancelled 9.5 Total Bilirubin 0.27 Direct Bilirubin 0.09 AST 33 H ALT 35 Alkaline Phosphatase 80 Troponin T High Sens Cancelled < 6 Troponin T Hi Sens 2 Hr Total Protein 7.3 Albumin 4.3 Globulin 3.0 Lipase 09/22/24 21:16 WBC Corrected WBC RBC Hgb Hct MCV MCH MCHC RDW Std Deviation RDW Coeff of [place] Plt Count MPV Immature Gran % (Auto) Neut % (Auto) Lymph % (Auto) Treasure % (Auto) Eos % (Auto) Baso % (Auto) Absolute Neuts (auto) Absolute Lymphs (auto) Total Counted Neutrophils % (Manual) Band Neutrophils % Lymphocytes % (Manual) Monocytes % (Manual) Eosinophils % (Manual) Basophils % (Manual) Metamyelocytes % Myelocytes % Promyelocytes % Blast Cells % Plasma Cell % (Manual) Other Cells % Nucleated RBC % Nucleated RBCs/100 WBC Differential Comment Diff Path Review Hypersegmented Neuts Atypical Lymphocytes Reactive Lymphocytes Smudge Cells Toxic Granulation Toxic Vacuolation Dohle Bodies Giancarlo Rods Platelet Estimate Plt Morphology Comment RBC Morphology Polychromasia Hypochromasia Basophilic Stippling Anisocytosis Microcytosis Macrocytosis Spherocytes Sickle Cells Target Cells Tear Drop Cells Ovalocytes Stomatocytes Thapa-Hubbard Bodies Candelario Cells Bite Cells Crenated Cell Acanthocytes (Spur) Rouleaux Schistocytes Sodium Potassium Chloride Carbon Dioxide Anion Gap BUN Creatinine Estim Creat Clear Calc Est GFR (MDRD) Non-Af BUN/Creatinine Ratio Glucose Calcium Total Bilirubin Direct Bilirubin AST ALT Alkaline Phosphatase Troponin T High Sens Troponin T Hi Sens 2 Hr < 6 Total Protein Albumin Globulin Lipase Radiography Diagnostic Testing: Clinical Impression(s) from Imaging Studies Chest X-Ray 09/22/24 18:42 IMPRESSION: NO ACUTE FINDINGS. Reading Location: [place] [address] Abdomen/Pelvis CT 09/22/24 19:41 IMPRESSION: NO ACUTE FINDINGS AT THE ABDOMEN OR PELVIS ON CONTRAST-ENHANCED CT. Reading Location: [place] [address] Discharge Plan Triage Chief Complaint: Chest Pain ED Provider: Kash Andrade Dx/Rx/DC Orders Clinical Impression: Chest pain Prescriptions: New pantoprazole [Protonix] 40 mg tablet,delayed release (DR/EC) 40 mg PO DAILY Qty: 30 0RF No Action levothyroxine 125 mcg tablet 125 mcg PO DAILY cyanocobalamin (vitamin B-12) 500 mcg tablet 500 mcg PO DAILY omega 0-[id number]-[id number]-fish oil [Fish Oil] 60-90-500 mg capsule 1 cap PO DAILY turmeric 400 mg capsule PO ibuprofen 600 mg tablet 600 mg PO Q8H PRN azithromycin 250 mg tablet 250 mg PO QDAY Qty: 12 0RF Rx Instructions: 2 tablets today, then 1 tablet daily on days 2 through 11 metaxalone 800 mg tablet 800 mg PO TID 7 Days Qty: 21 0RF Primary Care Provider: Franc Salinas Referrals: Franc Salinas DO [Primary Care Provider] - Christina White MD [Med Staff - Active Staff] - Activity Restrictions/Additional Instructions: Your heart enzymes were normal. Your CT did not show any acute findings. Follow-up with your primary care physician and the cardiology team for a stress test. You were prescribed Protonix daily pick this up at your pharmacy and take as prescribed. Return with worsening symptoms or concerns. Print Language: Telugu Disposition Disposition: Home, Self Care
[2024-09-22 22:15] LABS: Troponin T High Sens 2 HR < 6 ng/L (<=14)
== END 2024-09-22 23:00 | disposition home or self-care (01) ==
PROVIDERS: Emergency Provider Emergency Medicine; PCP Family Medicine; Referring Provider Emergency Medicine; Visit Provider Emergency Medicine
DX: R07.9 Chest pain, unspecified (principal); E11.9 Type 2 diabetes mellitus without complications; I10 Essential (primary) hypertension; M79.7 Fibromyalgia; Z90.710 Acquired absence of both cervix and uterus; E07.9 Disorder of thyroid, unspecified; J45.909 Unspecified asthma, uncomplicated; Z79.890 Hormone replacement therapy; Z79.899 Other long term (current) drug therapy
CPT/HCPCS: 71046; 74177; 80048; 80076; 83690; 84484; 85025; 93005; 99283; Q9967; A4216